=== PATIENT | female | born 1950 | race Caucasian/White ===

== ENCOUNTER 2020-04-26 07:01 | Outpatient (REF) | payer BC, SELFPAY | END 2020-04-26 07:02 | disposition home or self-care (01) | LOC: HO.WFDLDS 07:01 | PROVIDERS: PCP Internal Medicine; Visit Provider Internal Medicine | DX: Z20.828 Contact with and (suspected) exposure to other viral communicable diseases (principal) | CPT/HCPCS: C9803; U0003 ==

== ENCOUNTER 2021-02-26 08:18 | Outpatient (REF) | payer BC, SELFPAY ==
[2021-02-26 11:28] LABS: Alanine Aminotransferase 20 U/L (0-31); Albumin Level 4.2 g/dL (3.5-5.0); Alkaline Phosphatase 97 U/L (39-117); Anion Gap 12 (12-20); Aspartate Amino Transferase 22 U/L (5-31); Bilirubin Total 0.9 mg/dL (0.0-1.0); Blood Urea Nitrogen 19 mg/dL (9-16); Carbon Dioxide 28 mmol/L (22-29); Chloride 105 mmol/L (96-108); Estimated Glomerular Filt Rate > 60; Glucose Fasting 89 mg/dL (60-99); Potassium 4.3 mmol/L (3.3-5.1); Sodium 141 mmol/L (135-145); Total Protein 6.9 g/dL (6.5-8.0)
[2021-02-26 11:31] LABS: Estimated Average Glucose 103 mg/dL; Hemoglobin A1c % 5.2 %
== END 2021-02-26 08:19 | disposition home or self-care (01) ==
LOC: HO.MANLDS 08:18
PROVIDERS: PCP Internal Medicine; Visit Provider Internal Medicine
DX: R73.01 Impaired fasting glucose (principal)
CPT/HCPCS: 36415; 80053; 83036

== ENCOUNTER 2022-02-27 08:23 | Outpatient (REF) | payer BC, SELFPAY ==
[2022-02-27 11:29] LABS: MANUAL DIFF FLAG NO
[2022-02-27 11:39] LABS: Basophils Percent Auto 0.4 % (0-2); Eosinophils Absolute Auto 0.1 X10*3/uL (0.0-0.4); Eosinophils Percent Auto 1.1 % (0-4); Hematocrit 36.3 % (37.0-47.0); Hemoglobin 11.8 g/dl (12.0-16.0); Imm Gran Abs Auto 0.03 X10*3/uL (0.00-0.03); Imm Gran Pct Auto 0.4 % (0.0-0.4); Lymphocytes Percent Auto 28.5 % (20-40); Mean Corpuscular HGB Conc 32.5 g/dl (31.0-35.0); Mean Corpuscular Hemoglobin 32.3 pg (27.0-33.0); Mean Corpuscular Volume 99.5 fL (80.0-98.0); Mean Platelet Volume 9.5 fL (9.4-12.3); Monocytes Absolute Auto 0.7 X10*3/uL (0.1-1.2); Monocytes Percent Auto 9.2 % (2-11); Neutrophils Absolute Auto 4.3 x10*3/uL (2.0-8.3); Neutrophils Percent Auto 60.4 % (45-73); Platelet Count 284 X10*3/uL (160-400); Red Blood Count 3.65 X10*6/uL (4.20-5.50); Red Cell Distribution Width 12.7 % (11.0-16.0); White Blood Count 7.2 X10*3/uL (4.8-10.8)
[2022-02-27 12:32] LABS: Anion Gap 16 (12-20); Blood Urea Nitrogen 18 mg/dL (9-16); Carbon Dioxide 27 mmol/L (22-29); Chloride 102 mmol/L (96-108); Estimated Glomerular Filt Rate > 60; Potassium 4.1 mmol/L (3.3-5.1); Sodium 141 mmol/L (135-145)
[2022-02-27 12:33] LABS: Alanine Aminotransferase 19 U/L (0-31); Albumin Level 4.1 g/dL (3.5-5.0); Alkaline Phosphatase 92 U/L (39-117); Aspartate Amino Transferase 20 U/L (5-31); Bilirubin Total 0.8 mg/dL (0.0-1.0); Calcium 9.1 mg/dL (8.4-10.2); Glucose Random 90 mg/dL (60-115); Total Protein 6.8 g/dL (6.5-8.0)
== END 2022-02-27 08:24 | disposition home or self-care (01) ==
LOC: HO.MANLDS 08:23
PROVIDERS: Visit Provider Internal Medicine
DX: I10 Essential (primary) hypertension (principal)
CPT/HCPCS: 36415; 80053; 82306; 85025

== ENCOUNTER 2022-11-16 14:31 | Outpatient (REF) | payer BC, SELFPAY ==
[2022-11-16 18:01] LABS: MANUAL DIFF FLAG NO
[2022-11-16 18:38] LABS: Basophils Absolute Auto 0.1 X10*3/uL (0.0-0.2); Basophils Percent Auto 0.3 % (0-2); Eosinophils Absolute Auto 0.1 X10*3/uL (0.0-0.4); Eosinophils Percent Auto 0.6 % (0-4); Hematocrit 36.5 % (37.0-47.0); Hemoglobin 12.3 g/dl (12.0-16.0); Imm Gran Abs Auto 0.06 X10*3/uL (0.00-0.03); Imm Gran Pct Auto 0.4 % (0.0-0.4); Lymphocytes Absolute Auto 1.5 X10*3/uL (1.2-4.9); Lymphocytes Percent Auto 10.6 % (20-40); Mean Corpuscular HGB Conc 33.7 g/dl (31.0-35.0); Mean Corpuscular Hemoglobin 33.1 pg (27.0-33.0); Mean Corpuscular Volume 98.1 fL (80.0-98.0); Mean Platelet Volume 9.6 fL (9.4-12.3); Monocytes Absolute Auto 0.8 X10*3/uL (0.1-1.2); Monocytes Percent Auto 5.2 % (2-11); Neutrophils Percent Auto 82.9 % (45-73); Platelet Count 267 X10*3/uL (160-400); Red Blood Count 3.72 X10*6/uL (4.20-5.50); White Blood Count 14.4 X10*3/uL (4.8-10.8)
[2022-11-16 18:51] LABS: Alanine Aminotransferase 18 U/L (0-31); Albumin Level 3.4 g/dL (3.5-5.0); Alkaline Phosphatase 47 U/L (39-117); Anion Gap 12 (12-20); Aspartate Amino Transferase 19 U/L (5-31); Bilirubin Total 0.8 mg/dL (0.0-1.0); Blood Urea Nitrogen 8 mg/dL (9-16); C Reactive Protein 13.12 mg/dL (< or = 0.50); Calcium 8.8 mg/dL (8.4-10.2); Carbon Dioxide 30 mmol/L (22-29); Chloride 93 mmol/L (96-108); Estimated Glomerular Filt Rate > 60; Glucose Random 116 mg/dL (60-115); Lipase 26 U/L (8-78); Potassium 2.6 mmol/L (3.3-5.1); Sodium 132 mmol/L (135-145)
[2022-11-16 19:01] LABS: Amylase 51 U/L (28-100)
[2022-11-16 19:04] LABS: Erythrocyte Sedimentation Rate 20 MM/HR (0-20)
== END 2022-11-16 14:32 | disposition home or self-care (01) ==
LOC: HO.MANLDS 14:31
PROVIDERS: Visit Provider Physician Assistant
DX: A04.72 Enterocolitis due to Clostridium difficile, not specified as recurrent (principal)
CPT/HCPCS: 36415; 80053; 82150; 83690; 85025; 85652; 86140

== ENCOUNTER 2022-11-24 08:03 | Outpatient (REF) | payer BC, SELFPAY ==
[2022-11-24 14:35] LABS: Anion Gap 10 (12-20); Blood Urea Nitrogen 14 mg/dL (9-16); Calcium 9.4 mg/dL (8.4-10.2); Carbon Dioxide 33 mmol/L (22-29); Chloride 99 mmol/L (96-108); Estimated Glomerular Filt Rate > 60; Glucose Random 87 mg/dL (60-115); Potassium 3.2 mmol/L (3.3-5.1); Sodium 139 mmol/L (135-145)
== END 2022-11-24 08:04 | disposition home or self-care (01) ==
LOC: HO.MANLDS 08:03
PROVIDERS: Visit Provider Physician Assistant
DX: E87.5 Hyperkalemia (principal)
CPT/HCPCS: 36415; 80048

== ENCOUNTER → 2023-03-04 09:31 | Outpatient (REF) | payer BC, SELFPAY ==
--- NOTE | 2023-03-04 09:34 | CA_ITS ---
Transthoracic Echocardiogram Patient (Last, First, Middle): Monie Lake F Gender: Female Date of : 1950 Age: 72 Procedure Date: 03/04/2023 Procedure Type: Transthoracic Echocardiogram Location: OP Height: 162.56 cm Weight: 66.23 kg BSA: 1.71 m2 Heart Rate: 69 bpm BP: 135 / 75 mmHg Shower Attendant: ANUP Redman MD: Kev Pacheco MD Executive Team Leader: Kain Sheikh MD Symptoms: R01.1 MURMUR Study Quality: Fair ECG Rhythm: Sinus Conclusions: - 1. Normal LV systolic function with LVEF of 65-70% 2. Severe calcific aortic stenosis 3. Normal RV systolic pressure 4. Mildly dilated ascending aorta at 4 cm 5. No gross pericardial effusion Findings Left Ventricle Normal left ventricular size, thickness, and systolic function. The visually estimated ejection fraction is between 65-70%. Spectral Doppler is indicative of an impaired relaxation filling pattern. There is mild septal asymmetric hypertrophy. Right Ventricle Normal right ventricular cavity size and systolic function. Atria Both atria are normal in size. There is no evidence of interatrial shunt. Aortic Valve There is moderate calcification of the aortic valve. There is mild thickening of the aortic valve. There is severe aortic valve stenosis. The peak aortic gradient is 63 mmHg.The mean gradient is 39 mmHg. The aortic valve area is 0.79 cm2. There is no aortic valve regurgitation. Dimensionless index is 0.23, consistent with severe aortic stenosis Mitral Valve There is mild anterior and posterior mitral leaflet thickening. There is trace mitral valve regurgitation. There is no mitral valve stenosis. Pulmonic Valve The pulmonic valve was not well visualized. Tricuspid Valve Likely normal tricuspid valve structure and function. There is trace tricuspid valve regurgitation. The right ventricular systolic pressure is normal. The right ventricular systolic pressure is 14 mmHg. Normal right atrial pressure. There is no evidence of pulmonary hypertension. Great Vessels The pulmonary artery was not well visualized. There is mild dilatation of the ascending aorta. Venous The inferior vena cava is normal in size and collapses greater than 50% with inspiration. Pericardium/Pleural There is no evidence of pericardial effusion. Prior Study Comparison No prior study available for comparison. Measurements 2D Linear Measurements IVSd: 1.40 0.6-0.9/0.6-1.0 cm LVIDd: 3.90 3.9-5.3/4.2-5.9 cm LVIDd Index: 2.28 2.4-3.2/2.2-3.1 cm/m2 LVIDs: 2.20 2.0-3.6 cm LVPWd: 1.00 0.7-1.1 cm LA Diam: 3.50 2.7-3.8/3.0-4.0 cm LAIDs Index: 2.05 1.5-2.3 cm/m2 LV Mass: 198.36 67-162/88-224 g LV Mass Index: 116.00 43-95/49-115 g/m2 LVOT Diam: 2.10 3.0+(-)1.3 cm 2D Systolic Function EF 4C: 60.40 >55% EF 2C: 80.60 >55% EF BiP: 72.70 >55% Mitral Valve MV Pk E: 0.91 MV PK A: 0.75 MV Decel Time: 184.00 E/A: 1.20 E'Lateral: 9.68 E'Medial: 9.14 E/E' Med: 9.90 E/E' Lat: 9.40 PHT: 54.00 MVA PHT: 4.07 Decel [place]: 4.94 Aortic Valve AoV Pk Demetrio: 3.96 AoV Mn Demetrio: 2.99 AoV VTI: 1.09 AoV Pk Grad: 63.00 Aov Mn Grad: 39.00 VIKKI Cont.VTI: 0.79 LVOT LVOT Pk Demetrio: 0.72 LVOT Mn Demetrio: 0.61 LVOT VTI: 0.25 LVOT Pk Grad: 2.00 LVOT Mn Grad: 2.00 LVOT Diam: 2.10 LVOT Area: 3.46 Diastolic Function MV Pk E: 0.91 MV Pk A: 0.75 E/A: 1.20 E'Medial: 9.14 E/E' Med: 9.90 E' Laterial: 9.68 E/E' Lat: 9.40 Right Ventricle TAPSE (mm): 21.20 TVS' Demetrio: 10.00 Tricuspid Valve TR Pk Demetrio: 1.65 TR Pk Grad: 11.00 RA Press: 3.00 RVSP: 14.00 Great Vessels Aorta Sinus of Valsalva: 3.50 2.0-3.5 cm Ao Asc: 4.00 2.1-3.4 cm Pulmonary Valve PV Pk Demetrio: 1.05 Peak PV Grad: 4.00 Updated in Other Vendor System with Status of Final Kain Sheikh MD electronically signed on 03/05/2023 8:02:27 AM with status of Final
== END ==
LOC: HO.CARD 09:31
PROVIDERS: PCP Internal Medicine; Visit Provider Internal Medicine
DX: R01.1 Cardiac murmur, unspecified (principal)
CPT/HCPCS: 93306

== ENCOUNTER → 2023-03-04 09:34 | Outpatient (BNV) | payer BC, SELFPAY | PROVIDERS: PCP Internal Medicine; Visit Provider Internal Medicine Cardiovascular Disease | DX: I35.0 Nonrheumatic aortic (valve) stenosis (principal) | CPT/HCPCS: 93306 ==

== ENCOUNTER 2023-03-11 12:40 | Outpatient (AMB) | payer BC, SELFPAY ==
[2023-03-11 13:01] VITALS: BP 130/78; PULSE 82; BMI 25.7
--- NOTE | 2023-03-11 13:01 | MHC.OFFVIS ---
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 boulardii)) 250 mg PO BID HPI HPI Comments History of Present Illness Details Thank you for referring Monie in cardiology consultation today for recently noted aortic stenosis which appears to be severe aortic stenosis by echocardiographic criteria. Patient is a 72-year-old female with prior history of hyper tension which is been well controlled over many years. She also has family history of aortic valve replacement in her father. Patient in around July time had developed infectious symptoms with diarrhea and subsequently was suspected to have E coli and was treated for the same although there was no bacterial diagnosis made as per at that time. She subsequently developed 3 bouts of C difficile enteritis which was then eventually treated with oral vancomycin. Patient during the workup and undergoing CT scan was noted to have calcified aortic valve and subsequently on clinical exam by ID physician noted to have systolic murmur. She says she has had murmur for a long time however this led to an echocardiogram which shows severe aortic valve stenosis with underlying leaflet morphology difficult to diagnose with mean gradient of 39 mm Hg valve area of 0.79 centimeters sq and a dimensionless index of 0.23. Patient got very anxious after mentioning about aortic stenosis and says she was having some chest tightness associated with. She says whenever she gets stressed or anxious she gets retrosternal chest tightness. She has no prior history of coronary artery disease. She denies any exertional chest pain or shortness of breath and denies any reduction overall exercise capacity since last year. Denies any lightheadedness, syncope. No heart failure symptoms. No prolonged irregular heartbeat or palpitations. [facility] Medical History HTN (hypertension) Aortic stenosis Surgical History Hx of hysterectomy Family History Father Mitral valve disease Mother HTN (hypertension) Social History Patient Tobacco Use Status: Never used Tobacco Review of Systems Const Denies chills, Denies daytime sleepiness, Denies fatigue, Denies fever(s), Denies frequent falls, Denies poor appetite, Denies snoring, Denies stops breathing during sleep, Denies weakness, Denies weight gain and Denies weight loss Eyes Denies loss of vision ENT Denies dizziness and Denies hearing loss Card Denies chest pain, Denies claudication, Denies leg edema, Denies lightheadedness, Denies palpitations, Denies dyspnea, Denies dyspnea on exertion and Denies orthopnea Resp Denies cough, Denies excessive phlegm production, Denies dyspnea, Denies dyspnea on exertion, Denies snoring and Denies wheezing GI Denies abdominal pain, Denies hematochezia, Denies change in bowel habits, Denies nausea and Denies vomiting Denies urinary frequency and Denies dysuria Musc Denies arthralgias, Denies muscle weakness, Denies numbness and Denies other (frequent falls) Skin/Breast Denies nail changes and Denies rash Neuro Denies Abnormal speech present, Denies dizziness, Denies frequent falls, Denies loss of vision, Denies memory loss, Denies numbness and Denies weakness Psych Denies depression and Denies memory loss Endo Denies fatigue and Denies palpitations Darien/Lymph Reports easy bruising and Reports other (anemia) Aller/Immun Denies wheezing Physical Exam Vital Signs: Last Vital Signs Pulse 82 03/11/23 13:01 BP 130/78 03/11/23 13:01 BMI result Body Mass Index 25.7 Const General: cooperative, comfortable, no acute distress, well developed, alert, awake, Physically active, anxious and well groomed Nutritional Appearance: average body habitus Orientation/consciousness: patient oriented x3 Limitations: no limitations HEENT Head: Yes normocephalic and Yes atraumatic Neck Neck: Yes trachea midline, Yes supple and Yes no JVD Resp Effort & Inspection: normal respiratory effort Auscultation: clear to auscultation bilaterally Cardio Jugular venous distension: no JVD Palpation: normal PMI Rate: regular rate Rhythm: regular rhythm Heart sounds: S1 normal heart sound present, no click, no gallops, Murmur heart sound present systolic late, decrescendo and crescendo and Other heart sounds present (Preserved S2) Peripheral pulses: Peripheral pulses 2+ throughout GI Auscultation: normal bowel sounds Skin General skin exam: no rashes or lesions noted Neuro General: patient oriented x3 and no focal motor deficits Speech: No Abnormal speech present Extrem General: Yes no clubbing, cyanosis or edema Psych Appearance: grossly normal Office Procedures EKG Details: EKG shows normal sinus rhythm with isolated PVC with nonspecific ST changes [id number], Complete Assessment & Plan Assessment & Plan (1) Aortic stenosis: Comment: Possibly bicuspid aortic valve Code(s): I35.0 - Nonrheumatic aortic (valve) stenosis Plan: A severe aortic stenosis in this 72-year-old woman most likely due to bicuspid aortic valve, although morphology is unclear on the transthoracic echocardiogram. Family history of aortic valve replacement bicuspid aortic valve in her father. Currently blood pressure is well optimized. She has no exertional symptoms although she has stress-induced chest tightness. This could be concerning for underlying coronary artery disease and/or symptomatic valve stenosis. Although she says she is able to do yd work without any limiting symptoms. We discussed about pathophysiology of aortic stenosis as well as associated cardiovascular abnormality associated with and also discussed about cardinal symptoms associated with aortic stenosis. We advised to call with any new symptoms. Although given that she has good functional capacity will suggest a treadmill stress test to assess for hemodynamic response with underlying aortic stenosis. If she has any abnormality or reduced exercise capacity she will need to be referred for aortic valve replacement. We then discussed about aortic valve replacement including surgical aortic valve replacement and/or transcatheter aortic valve replacement and evaluation with the valve team. Currently a blood pressure is well optimized advised to continue current therapy. Recommend low-dose aspirin therapy for neuro protection. Also suggest statin therapy to target goal LDL less than 100 mg/dL. Will follow up in the clinic in 3 months time, sooner p.r.n.. Thank you for allowing me to partake in the care Orders: Orders CA stress test Today I35.0 - Nonrheumatic aortic (valve) stenosis Medications: New aspirin (Ecotrin Low Strength) 81 mg PO DAILY 30 tabs 5RF I35.0 - Nonrheumatic aortic (valve) stenosis rosuvastatin (Crestor) 20 mg PO DAILY 30 tabs 5RF I35.0 - Nonrheumatic aortic (valve) stenosis Coding Level of Care Code New Pt Level 4 (67767) Diagnoses Aortic stenosis I35.0 CPT Codes EKG - CPT: 96757-[id number], Complete ([id number])
== END 2023-03-11 13:45 | disposition home or self-care (01) ==
PROVIDERS: PCP Internal Medicine; Visit Provider Internal Medicine Cardiovascular Disease
DX: I35.0 Nonrheumatic aortic (valve) stenosis (principal)
CPT/HCPCS: 93010; 99204

== ENCOUNTER → 2023-03-11 12:40 | Outpatient (BNVA) | payer BC, SELFPAY | PROVIDERS: PCP Internal Medicine; Visit Provider Internal Medicine Cardiovascular Disease | DX: I35.0 Nonrheumatic aortic (valve) stenosis (principal); I10 Essential (primary) hypertension | CPT/HCPCS: 93005 ==

== ENCOUNTER → 2023-03-16 07:37 | Outpatient (REF) | payer BC, SELFPAY ==
--- NOTE | 2023-03-16 07:45 | CA_ITS ---
Acquisition Time: 2023-03-16 08:05:56 Total Exercise Time: 00:05:00 Test Indications: AORTIC STENOSIS Medications: LISINOPRIL/HCTZ Protocol: AZAM Max HR: 139 BPM 92% of Pred: 150 BPM Max BP: 138/078 mmHG Max Work Load: 7.0 METS Exercise stress test exercise 5 min of Azam protocol achieving 92% MPHR, without anginal symptoms, without lightheadedness, with isolated PVC, with drop in SHAINA from 138/78 to 108/70, with out EKG changes.Test reviewed with Dr. Sheikh Referred By: Kain Sheikh Overread By: Raegan White
== END ==
LOC: HO.CARD 07:37
PROVIDERS: PCP Internal Medicine; Visit Provider Internal Medicine Cardiovascular Disease
DX: I35.0 Nonrheumatic aortic (valve) stenosis (principal)
CPT/HCPCS: 93017

== ENCOUNTER → 2023-03-16 07:45 | Outpatient (BNV) | payer BC, SELFPAY | PROVIDERS: PCP Internal Medicine; Visit Provider Nurse Practitioner | DX: I35.0 Nonrheumatic aortic (valve) stenosis (principal) | CPT/HCPCS: 93016; 93018 ==

== ENCOUNTER 2023-03-24 07:34 | Outpatient (REF) | payer BC, SELFPAY ==
[2023-03-24 13:16] LABS: MANUAL DIFF FLAG NO
[2023-03-24 13:36] LABS: Basophils Absolute Auto 0.1 X10*3/uL (0.0-0.2); Basophils Percent Auto 0.8 % (0-2); Eosinophils Absolute Auto 0.1 X10*3/uL (0.0-0.4); Eosinophils Percent Auto 1.9 % (0-4); Hematocrit 39.1 % (37.0-47.0); Hemoglobin 12.7 g/dl (12.0-16.0); Imm Gran Abs Auto 0.01 X10*3/uL (0.00-0.03); Imm Gran Pct Auto 0.2 % (0.0-0.4); Lymphocytes Absolute Auto 2.3 X10*3/uL (1.2-4.9); Lymphocytes Percent Auto 38.4 % (20-40); Mean Corpuscular HGB Conc 32.5 g/dl (31.0-35.0); Mean Corpuscular Hemoglobin 33.3 pg (27.0-33.0); Mean Corpuscular Volume 102.6 fL (80.0-98.0); Mean Platelet Volume 9.6 fL (9.4-12.3); Monocytes Absolute Auto 0.5 X10*3/uL (0.1-1.2); Monocytes Percent Auto 8.1 % (2-11); Neutrophils Percent Auto 50.6 % (45-73); Platelet Count 208 X10*3/uL (160-400); Red Blood Count 3.81 X10*6/uL (4.20-5.50); Red Cell Distribution Width 11.9 % (11.0-16.0); White Blood Count 5.9 X10*3/uL (4.8-10.8)
[2023-03-24 13:37] LABS: Estimated Average Glucose 105 mg/dL; Hemoglobin A1c % 5.3 % (<6.0)
[2023-03-24 14:03] LABS: Alanine Aminotransferase 10 U/L (0-31); Albumin Level 4.1 g/dL (3.5-5.0); Alkaline Phosphatase 85 U/L (39-117); Anion Gap 13 (12-20); Aspartate Amino Transferase 19 U/L (5-31); Bilirubin Total 0.8 mg/dL (0.0-1.0); Blood Urea Nitrogen 16 mg/dL (9-16); Calcium 9.3 mg/dL (8.4-10.2); Carbon Dioxide 30 mmol/L (22-29); Chloride 103 mmol/L (96-108); Estimated Glomerular Filt Rate > 60; Glucose Random 89 mg/dL (60-115); Potassium 3.7 mmol/L (3.3-5.1); Sodium 142 mmol/L (135-145)
[2023-03-24 14:29] LABS: Vitamin D 25-OH Total 84.4 ng/mL (>30)
== END 2023-03-24 07:35 | disposition home or self-care (01) ==
LOC: HO.MANLDS 07:34
PROVIDERS: Visit Provider Internal Medicine
DX: I10 Essential (primary) hypertension (principal); R73.01 Impaired fasting glucose
CPT/HCPCS: 36415; 80053; 82306; 83036; 85025

== ENCOUNTER 2023-03-29 13:37 | Outpatient (REF) | payer BC, SELFPAY ==
[2023-03-29 15:27] LABS: INTERNATIONAL NORM RATIO 0.9 (0.9-1.1); Prothrombin Time 10.8 SEC (11.1-13.3)
[2023-03-29 15:30] LABS: Hematocrit 37.7 % (37.0-47.0); Hemoglobin 12.6 g/dl (12.0-16.0); Mean Corpuscular HGB Conc 33.4 g/dl (31.0-35.0); Mean Corpuscular Volume 98.7 fL (80.0-98.0); Mean Platelet Volume 9.1 fL (9.4-12.3); Platelet Count 201 X10*3/uL (160-400); Red Blood Count 3.82 X10*6/uL (4.20-5.50); Red Cell Distribution Width 11.5 % (11.0-16.0); White Blood Count 6.1 X10*3/uL (4.8-10.8)
[2023-03-29 15:54] LABS: Anion Gap 10 (12-20); Blood Urea Nitrogen 12 mg/dL (9-16); Calcium 9.4 mg/dL (8.4-10.2); Carbon Dioxide 32 mmol/L (22-29); Chloride 101 mmol/L (96-108); Estimated Glomerular Filt Rate 57; Glucose Random 127 mg/dL (60-115); Potassium 3.5 mmol/L (3.3-5.1); Sodium 139 mmol/L (135-145)
== END 2023-03-29 13:38 | disposition home or self-care (01) ==
LOC: HO.LAB 13:37
PROVIDERS: PCP Internal Medicine; Visit Provider Internal Medicine Cardiovascular Disease
DX: I35.0 Nonrheumatic aortic (valve) stenosis (principal); I10 Essential (primary) hypertension; Z79.899 Other long term (current) drug therapy
CPT/HCPCS: 36415; 80048; 85027; 85610

== ENCOUNTER 2023-03-29 13:37 | Outpatient (AMB) | payer BC, SELFPAY ==
--- NOTE | 2023-03-29 13:57 | A.OFFVIS_ITS ---
Intake Vital Signs 03/29/23 14:00 Height 5 ft 4 in Weight 145 lb 8.081 oz BMI 25.0 BP 120/80 Blood Pressure Location Lt brachial Position Sitting Pulse 86 Intake Visit Reasons: fu re TAVR- Intake Note: New patient regarding TAVR Binder Layer Required: No Tube Closing Machine Operator: Tube Closing Machine Operator Present Accompanied by: Spouse Allergies penicillin G Allergy (Mild, Verified 03/11/23 13:08) rash Medication List - Last Reconciled 03/29/23 by Wade Carlin MD aspirin (Ecotrin Low Strength) 81 mg PO DAILY lisinopril-hydrochlorothiazide 20-25 mg 1 tab PO DAILY psyllium husk (Metamucil) 0.4 grams PO QHS rosuvastatin (Crestor) 20 mg PO DAILY Saccharomyces boulardii (Daily Probiotic (S. boulardii)) 250 mg PO BID HPI HPI Comments History of Present Illness Details Very pleasant 72-year-old female who is here for severe aortic valve st enosis. She said she had infection for which she received antibiotics and developed Clostridium difficile. Subsequent to that she has side infectious disease airway murmur was heard and echocardiography was performed. Echocardiography showed severe aortic valve stenosis. Discussing with the patient she had no significant symptoms in particular no chest discomfort, shortness of breath or syncope previously. She has been quite active and exercises and walks regularly without any exertional issues. She was referred for exercise stress tests where she was able to exercise without any symptom but interestingly her blood pressure dropped with exercise. Again during exercise she denied any symptoms. She has been referred to us for further assessment and discussion about transcatheter aortic valve replacement. She has no bleeding issues in the past. She has allergy to penicillin which causes rash. No previous cancer in herself. Her brother had prostate cancer which is only history in her family at this point. She has hypertension and hyperlipidemia and has been taking lisinopril hydrochlorothiazide combination along with rosuvastatin. [facility] Medical History HTN (hypertension) Aortic stenosis Surgical History Hx of hysterectomy Family History Father Mitral valve disease Mother HTN (hypertension) Social History Patient Tobacco Use Status: Never used Tobacco Review of Systems Const Denies chills, Denies daytime sleepiness, Denies fatigue, Denies fever(s), Denies frequent falls, Denies poor appetite, Denies snoring, Denies stops breathing during sleep, Denies weakness, Denies weight gain and Denies weight loss Eyes Denies loss of vision ENT Denies dizziness and Denies hearing loss Card Denies chest pain, Denies claudication, Denies leg edema, Denies l ightheadedness, Denies palpitations, Denies dyspnea, Denies dyspnea on exertion and Denies orthopnea Resp Denies cough, Denies excessive phlegm production, Denies dyspnea, Denies dyspnea on exertion, Denies snoring and Denies wheezing GI Denies abdominal pain, Denies hematochezia, Denies change in bowel habits, Denies nausea and Denies vomiting Denies urinary frequency and Denies dysuria Musc Denies arthralgias, Denies muscle weakness, Denies numbness and Denies other (frequent falls) Skin/Breast Denies nail changes and Denies rash Neuro Denies Abnormal speech present, Denies dizziness, Denies frequent falls, Denies loss of vision, Denies memory loss, Denies numbness and Denies weakness Psych Denies depression and Denies memory loss Endo Denies fatigue and Denies palpitations Darien/Lymph Reports easy bruising and Reports other (anemia) Aller/Immun Denies wheezing Physical Exam Vital Signs: Last Vital Signs Pulse 86 03/29/23 14:00 BP 120/80 03/29/23 14:00 BMI result Body Mass Index 25.0 GENERAL APPEARANCE: in no acute distress, pleasant. NECK: no carotid bruit, no jugular venous distention. SKIN: no suspicious lesions, warm and dry. HEART: Ejection systolic murmur with no 2nd heart sound, regular rate and rhythm. LUNGS: clear to auscultation bilaterally. ABDOMEN: soft, nontender. EXTREMITIES: no edema. PERIPHERAL PULSES: equal. NEUROLOGIC: No gross deficits, AAO X 3 Neuro Speech: No Abnormal speech present Assessment & Plan Assessment & Plan (1) HTN (hypertension): Code(s): I10 - Essential (primary) hypertension (2) Aortic stenosis: Comment: Possibly bicuspid aortic valve Code(s): I35.0 - Nonrheumatic aortic (valve) stenosis Plan 72-year-old female who is here for severe aortic valve stenosis. She does not have any symptoms but during exercise stress test she had drop in her blood pressure. Again she was asymptomatic during the stress test. Given the fact that she has severe aortic valve stenosis and hypertension while exercising on treadmill, the likely cause for this hemodynamic changes severe aortic valve stenosis. We had a detailed discussion about this. I have explained to her that aortic stenosis is a mechanical issue with the valve and the valve has to be replaced either surgically or with transcatheter techniques. She is more interested obviously in transcatheter aortic valve replacement. I explained to her that we have to gather some more information including presence of coronary disease 1st. We will arrange a diagnostic left and right heart catheterization for her. Post catheterization I will arrange a CT TAVR protocol and refer her for intervention cardiology assessment. She will also see cardiothoracic surgery for surgical risk assessment. I have discussed with her in detail about the pros and cons of TAVR procedure. She will have further discussions with Interventional Cardiology as well as cardiothoracic surgeon at [facility]. Follow-up with us after the cardiac catheterization. Thank you for allowing me to participate in the care of your patient. Please feel free to contact me if you have any questions. Orders: Orders Basic Metabolic Panel Today I35.0 - Nonrheumatic aortic (valve) stenosis Cardiac Cath ELIJAH Diagnostic Today I35.0 - Nonrheumatic aortic (valve) stenosis Complete Blood Count no Diff Today I35.0 - Nonrheumatic aortic (valve) stenosis Prothrombin Time INR Today I35.0 - Nonrheumatic aortic (valve) stenosis Lipid Panel Today I35.0 - Nonrheumatic aortic (valve) stenosis Coding Level of Care Code Est Pt Level 5 (97839) Diagnoses HTN (hypertension) I10 Aortic stenosis I35.0
[2023-03-29 14:00] VITALS: BP 120/80; PULSE 86; BMI 25.0
== END 2023-03-29 14:45 | disposition home or self-care (01) ==
PROVIDERS: PCP Internal Medicine; Visit Provider Internal Medicine Cardiovascular Disease
DX: I35.0 Nonrheumatic aortic (valve) stenosis (principal); I10 Essential (primary) hypertension
CPT/HCPCS: 99215

== ENCOUNTER → 2023-04-13 23:59 | Outpatient (BNV) | payer BC, SELFPAY | PROVIDERS: PCP Internal Medicine; Visit Provider Internal Medicine Cardiovascular Disease | DX: I35.0 Nonrheumatic aortic (valve) stenosis (principal) | CPT/HCPCS: 93460; 99152 ==

== ENCOUNTER 2023-04-26 07:58 | Outpatient (REF) | payer BC, SELFPAY ==
[2023-04-26 12:10] LABS: Cholesterol 150 mg/dL (<200); HDL Cholesterol 77 mg/dL (>40); LDL Cholesterol Calculated 63 mg/dL (<100); Triglycerides 54 mg/dL (<150)
== END 2023-04-26 07:59 | disposition home or self-care (01) ==
LOC: HO.WFDLDS 07:58
PROVIDERS: Visit Provider Internal Medicine Cardiovascular Disease
DX: I35.0 Nonrheumatic aortic (valve) stenosis (principal)
CPT/HCPCS: 36415; 80061

== ENCOUNTER 2023-06-23 10:41 | Outpatient (AMB) | payer BC, SELFPAY ==
--- NOTE | 2023-06-23 10:45 | MHC.OFFVIS ---
Intake Vital Signs 06/23/23 10:50 Height 5 ft 4 in Weight 149 lb 14.629 oz BMI 25.7 BP 122/70 Blood Pressure Location Lt brachial Position Sitting Pulse 78 Intake Visit Reasons: 3 mth fu after stress/ lavs Intake Note: 3 month follow-up after stress test feeling ok Vp Product Marketing Required: No Associate Professor Of Education: Associate Professor Of Education Present Accompanied by: Spouse Allergies penicillin G Allergy (Mild, Verified 03/11/23 13:08) rash Medication List - Last Reconciled 06/23/23 by Kain Sheikh MD aspirin (Ecotrin Low Strength) 81 mg PO DAILY coenzyme Q10 (CoQ-10) 100 mg PO DAILY lisinopril-hydrochlorothiazide 20-25 mg 1 tab PO DAILY psyllium husk (Metamucil) 0.4 grams PO QHS rosuvastatin (Crestor) 20 mg PO DAILY Saccharomyces boulardii (Daily Probiotic (S. boulardii)) 250 mg PO BID HPI HPI Comments History of Present Illness Details Monie comes for follow-up. She has been seen by the heart valve team and due to the anatomy of her severe aortic stenosis related to bicuspid aortic valve she has not considered to be a good candidate for transcatheter aortic valve replacement with higher complication rate. She is therefore seen by Dr. King who was planning to perform surgical aortic valve replacement in the near future. Patient does not have any significant coronary artery disease. No new symptoms to report. She takes all her medications regularly. Denies any new chest pain, lightheadedness, syncope, shortness of breath. PFSH Medical History HTN (hypertension) Aortic stenosis Surgical History Hx of hysterectomy Family History Father Mitral valve disease Mother HTN (hypertension) Social History Patient Tobacco Use Status: Never used Tobacco Review of Systems Const Denies chills, Denies daytime sleepiness, Denies fatigue, Denies fever(s), Denies frequent falls, Denies poor appetite, Denies snoring, Denies stops breathing during sleep, Denies weakness, Denies weight gain and Denies weight loss Eyes Denies loss of vision ENT Denies dizziness and Denies hearing loss Card Denies chest pain, Denies claudication, Denies leg edema, Denies lightheadedness, Denies palpitations, Denies dyspnea, Denies dyspnea on exertion and Denies orthopnea Resp Denies cough, Denies excessive phlegm production, Denies dyspnea, Denies dyspnea on exertion, Denies snoring and Denies wheezing GI Denies abdominal pain, Denies hematochezia, Denies change in bowel habits, Denies nausea and Denies vomiting Denies urinary frequency and Denies dysuria Musc Denies arthralgias, Denies muscle weakness, Denies numbness and Denies other (frequent falls) Skin/Breast Denies nail changes and Denies rash Neuro Denies Abnormal speech present, Denies dizziness, Denies frequent falls, Denies loss of vision, Denies memory loss, Denies numbness and Denies weakness Psych Denies depression and Denies memory loss Endo Denies fatigue and Denies palpitations Darien/Lymph Reports easy bruising and Reports other (anemia) Aller/Immun Denies wheezing Physical Exam Vital Signs: Last Vital Signs Pulse 78 06/23/23 10:50 BP 122/70 06/23/23 10:50 BMI result Body Mass Index 25.7 Neuro Speech: No Abnormal speech present Assessment & Plan Assessment & Plan (1) Aortic stenosis: Comment: Possibly bicuspid aortic valve Code(s): I35.0 - Nonrheumatic aortic (valve) stenosis Plan: Critical aortic stenosis with hemodynamically abnormal exercise response with patient who remains asymptomatic but with reduced exercise capacity on treadmill stress test. No significant coronary artery disease. The valve is bicuspid with anatomy not suitable for transcatheter aortic valve replacement. She is planned to undergo surgical aortic valve replacement. I had a detailed discussion about the process and recovery time with surgical aortic valve replacement. She is naturally somewhat nervous but is understanding the need for the procedure. Will schedule her for follow-up after aortic valve replacement in 4-6 weeks time after an echocardiogram. Continue aggressive risk factor modification including continue current aspirin therapy as well as statin therapy and current antihypertensive therapy. Will benefit from post surgical cardiac rehabilitation. Follow up in the clinic in 2 months time, sooner p.r.n.. Thank you for allowing me to partake in her care Coding Level of Care Code Est Pt Level 4 (80259) Diagnoses Aortic stenosis I35.0
[2023-06-23 10:50] VITALS: BP 122/70; PULSE 78; BMI 25.7
== END 2023-06-23 11:20 | disposition home or self-care (01) ==
PROVIDERS: PCP Internal Medicine; Referring Provider Internal Medicine; Visit Provider Internal Medicine Cardiovascular Disease
DX: I35.0 Nonrheumatic aortic (valve) stenosis (principal)
CPT/HCPCS: 99214

== ENCOUNTER → 2023-06-23 10:41 | Outpatient (BNVA) | payer BC, SELFPAY | PROVIDERS: PCP Internal Medicine; Visit Provider Internal Medicine Cardiovascular Disease ==

== ENCOUNTER 2023-09-15 13:48 | Outpatient (REF) | payer BC, SELFPAY ==
[2023-09-15 18:01] LABS: MANUAL DIFF FLAG NO
[2023-09-15 18:14] LABS: Basophils Percent Auto 0.6 % (0-2); Eosinophils Absolute Auto 0.2 X10*3/uL (0.0-0.4); Eosinophils Percent Auto 2.5 % (0-4); Hematocrit 32.9 % (37.0-47.0); Hemoglobin 10.6 g/dl (12.0-16.0); Imm Gran Abs Auto 0.03 X10*3/uL (0.00-0.03); Imm Gran Pct Auto 0.4 % (0.0-0.4); Immature Retic Fraction 28.6 % (3.0-15.9); Lymphocytes Absolute Auto 1.4 X10*3/uL (1.2-4.9); Mean Corpuscular HGB Conc 32.2 g/dl (31.0-35.0); Mean Corpuscular Hemoglobin 31.9 pg (27.0-33.0); Mean Corpuscular Volume 99.1 fL (80.0-98.0); Mean Platelet Volume 10.1 fL (9.4-12.3); Monocytes Absolute Auto 0.5 X10*3/uL (0.1-1.2); Monocytes Percent Auto 7.8 % (2-11); Neutrophils Absolute Auto 4.7 x10*3/uL (2.0-8.3); Neutrophils Percent Auto 68.7 % (45-73); Platelet Count 246 X10*3/uL (160-400); Red Blood Count 3.32 X10*6/uL (4.20-5.50); Red Cell Distribution Width 16.3 % (11.0-16.0); Reticulocyte Percent 3.5 % (0.5-1.8); Reticulocytes Absolute 0.116 X10*6/uL (0.026-0.095); White Blood Count 6.8 X10*3/uL (4.8-10.8)
[2023-09-15 18:25] LABS: Anion Gap 14 (12-20); Blood Urea Nitrogen 21 mg/dL (9-16); Calcium 8.7 mg/dL (8.4-10.2); Carbon Dioxide 27 mmol/L (22-29); Chloride 105 mmol/L (96-108); Estimated Glomerular Filt Rate > 60; Glucose Random 110 mg/dL (60-115); Iron 44 mcg/dL (30-160); Percent Iron Saturation 20 % (15-50); Sodium 143 mmol/L (135-145); Total Iron Binding Capacity 216 mcg/dL (228-428); Unsaturated Iron Binding 172 ug/dL
[2023-09-15 18:41] LABS: Ferritin 205 ng/mL (10-250)
[2023-09-15 18:56] LABS: Folate 8.8 ng/mL (> or = 4.0); Vitamin B12 475 pg/mL (200-900)
== END 2023-09-15 13:49 | disposition home or self-care (01) ==
LOC: HO.MANLDS 13:48
PROVIDERS: Visit Provider Internal Medicine
DX: I35.0 Nonrheumatic aortic (valve) stenosis (principal)
CPT/HCPCS: 36415; 80048; 82607; 82728; 82746; 83540; 85025; 85045

== ENCOUNTER → 2023-10-01 09:33 | Outpatient (REF) | payer BC, SELFPAY ==
--- NOTE | 2023-10-01 09:40 | CA_ITS ---
Transthoracic Echocardiogram Patient (Last, First, Middle): Monie Lake F Gender: Female Date of : 1950 Age: 73 Procedure Date: 10/01/2023 Procedure Type: Transthoracic Echocardiogram Location: OP Height: 162.56 cm Weight: 67.13 kg BSA: 1.72 m2 Heart Rate: bpm BP: 156 / 80 mmHg Core Stacker: TO Referring MD: Kain Sheikh MD Symptoms: Z95.2 - Presence of prosthetic heart valve Study Quality: Fair/Contrast Conclusions: - The left ventricular systolic function is normal. The calculated ejection fraction is 60% by biplane method. - A bioprosthetic aortic valve is present. The prosthetic aortic valve appears to be functioning normally. - There is moderate mitral annular calcification. Findings Procedure Information Contrast agent, definity, is being given per protocol without apparent complications. Left Ventricle Normal left ventricular cavity size. The left ventricular systolic function is normal. The calculated ejection fraction is 60% by biplane method. There is no evidence of regional wall motion abnormalities. Evidence suggests grade II (moderate) diastolic dysfunction. There is mild septal asymmetric hypertrophy. Right Ventricle Normal right ventricular cavity size. There is mildly decreased right ventricular systolic function. Atria Both atria are normal in size. Aortic Valve A bioprosthetic aortic valve is present. The prosthetic aortic valve appears to be functioning normally. The mean gradient is 13 mmHg. There is no aortic valve regurgitation. Mitral Valve There is moderate mitral annular calcification. There is trace mitral valve regurgitation. There is no mitral valve stenosis. Pulmonic Valve The pulmonic valve is likely normal. Tricuspid Valve There is trace tricuspid valve regurgitation. There is no evidence of pulmonary hypertension. Great Vessels The asc aorta is normal in size. Venous The inferior vena cava is normal in size and collapses greater than 50% with inspiration. Pericardium/Pleural There is no evidence of pericardial effusion. Prior Study Comparison Changes noted compared to prior study dated: 03/04/2023. s/p AVR. Measurements 2D Linear Measurements IVSd: 1.16 0.6-0.9/0.6-1.0 cm LVIDd: 4.62 3.9-5.3/4.2-5.9 cm LVIDd Index: 2.69 2.4-3.2/2.2-3.1 cm/m2 LVIDs: 3.13 2.0-3.6 cm LVPWd: 0.82 0.7-1.1 cm LA Diam: 3.70 2.7-3.8/3.0-4.0 cm LAIDs Index: 2.15 1.5-2.3 cm/m2 LV Mass: 196.03 67-162/88-224 g LV Mass Index: 113.97 43-95/49-115 g/m2 LVOT Diam: 2.00 3.0+(-)1.3 cm 2D Systolic Function EF 4C: 55.80 >55% EF 2C: 62.00 >55% EF BiP: 59.70 >55% Mitral Valve MV Pk E: 0.69 MV PK A: 0.51 MV Decel Time: 230.00 E/A: 1.30 E'Lateral: 6.74 E'Medial: 4.35 E/E' Med: 15.80 E/E' Lat: 10.20 PHT: 67.00 MVA PHT: 3.28 Decel Jewell: 2.98 Aortic Valve AoV Pk Demetrio: 2.25 AoV Mn Demetrio: 1.72 AoV VTI: 0.60 AoV Pk Grad: 20.00 Aov Mn Grad: 13.00 VIKKI Cont.VTI: 1.07 LVOT LVOT Pk Demetrio: 0.79 LVOT Mn Demetrio: 0.56 LVOT VTI: 0.20 LVOT Pk Grad: 2.00 LVOT Mn Grad: 1.00 LVOT Diam: 2.00 LVOT Area: 3.14 Diastolic Function MV Pk E: 0.69 MV Pk A: 0.51 E/A: 1.30 E'Medial: 4.35 E/E' Med: 15.80 E' Laterial: 6.74 E/E' Lat: 10.20 Right Ventricle TAPSE (mm): 15.50 TVS' Demetrio: 8.81 Tricuspid Valve TR Pk Demetrio: 2.13 TR Pk Grad: 18.00 RA Press: 3.00 RVSP: 21.00 Great Vessels Aorta Sinus of Valsalva: 3.53 2.0-3.5 cm Ao Asc: 3.50 2.1-3.4 cm Ao Arch: 2.60 Updated in Other Vendor System with Status of Final Garett Agrawal MD electronically signed on 10/05/2023 11:36:26 AM with status of Final
== END ==
LOC: HO.CARD 09:33
PROVIDERS: PCP Internal Medicine; Visit Provider Internal Medicine
DX: Z95.2 Presence of prosthetic heart valve (principal)
CPT/HCPCS: 93306; Q9957

== ENCOUNTER → 2023-10-01 09:40 | Outpatient (BNV) | payer BC, SELFPAY | PROVIDERS: PCP Internal Medicine; Visit Provider Internal Medicine | DX: I34.81 Nonrheumatic mitral (valve) annulus calcification (principal); Z95.3 Presence of xenogenic heart valve | CPT/HCPCS: 93306 ==

== ENCOUNTER 2023-10-19 11:04 | Outpatient (AMB) | payer BC, SELFPAY ==
[2023-10-19 11:21] VITALS: BP 128/80; PULSE 55; BMI 26.1
--- NOTE | 2023-10-19 11:21 | A.OFFVIS_ITS ---
Vital Signs 10/19/23 11:21 Height 5 ft 4 in Weight 152 lb 1.903 oz BMI 26.1 BP 128/80 Blood Pressure Location Lt brachial Position Sitting Pulse 55 Intake Visit Reasons: follow-up TAVR after echo Intake Note: Follow-up post TAVR and echo c/o chest in soreness Siebel Consultant Required: No Patient Registration Specialist: Patient Registration Specialist Present Accompanied by: Spouse Allergies penicillin G Allergy (Mild, Verified 03/11/23 13:08) rash Medication List - Last Reconciled 10/19/23 by Kain Sheikh MD aspirin (Ecotrin Low Strength) 81 mg PO DAILY ferrous fumarate 325 mg PO DAILY lisinopril 20 mg PO .PM lisinopril-hydrochlorothiazide 20-25 mg 1 tab PO DAILY metoprolol tartrate 50 mg PO BID potassium chloride ER 10 mEq PO DAILY psyllium husk (Metamucil) 0.4 grams PO QHS Saccharomyces boulardii (Daily Probiotic (S. boulardii)) 250 mg PO BID HPI Comments Details: Monie comes for follow-up. As you aware she underwent aortic valve replacement with a 21 mm bioprosthetic aortic valve. She continues to have discomfort in the right upper chest area since the surgery with numbness in that area. However she says the symptoms exertional fatigue and chest pressure significantly improved since the valve replacement. The surgery was complicated with fluid overload and atrial fibrillation. This is not resolved. She also had postoperatively right pleural effusion. She also had anemia, currently on iron therapy. She was also started on Lasix therapy and subsequently her lisinopril was withheld during that period and she started developing significantly elevated blood pressure. Since then her lisinopril has been re added and currently taking lisinopril hydrochlorothiazide 20/25 mg at morning hours and lisinopril 20 mg at nighttime. Since then her blood pressure has been much better controlled. Although she is notice low heart rate. She is also currently on metoprolol 50 mg b.i.d.. She denies any lightheadedness, syncope. She is currently participating in phase 2 cardiac rehabilitation. Denies any clear orthopnea, PND, leg edema. Currently also performing incentive spirometry. Recent echocardiogram shows normal LV ejection fraction of 60% with normal bioprosthetic aortic valve. [facility] Medical History HTN (hypertension) Aortic stenosis Surgical History S/P AVR Hx of hysterectomy Family History Father Mitral valve disease Mother HTN (hypertension) Social History Patient Tobacco Use Status: Never used Tobacco Review of Systems Const Denies chills, Denies fatigue, Denies fever(s), Denies frequent falls, Denies weakness, Denies weight gain and Denies weight loss ENT Denies dizziness Card Denies chest pain, Denies leg edema, Denies lightheadedness, Denies palpitations, Denies dyspnea, Denies dyspnea on exertion, Denies orthopnea and Denies other (loss of consciousness) Resp Denies cough, Denies dyspnea and Denies dyspnea on exertion GI Denies hematochezia and Denies change in stool character Musc Denies abnormal gait, Denies muscle weakness, Denies numbness, Denies radiating pain into limb and Denies tingling Neuro Denies abnormal gait, Denies dizziness, Denies frequent falls, Denies numbness, Denies tingling and Denies weakness Endo Denies fatigue and Denies palpitations Physical Exam Vital Signs: Last Vital Signs Pulse 55 10/19/23 11:21 BP 128/80 10/19/23 11:21 BMI result Body Mass Index 26.1 Const General: cooperative, comfortable, no acute distress, alert, awake and well groomed Nutritional Appearance: average body habitus Orientation/consciousness: patient oriented x3 Neck Neck: Yes trachea midline, Yes supple and Yes no JVD Chest Chest palpation & inspection: other (Well-healed sternotomy scar) Resp Effort & Inspection: normal respiratory effort Auscultation: diminished lung sounds on the right in the lower lung crystal Cardio Jugular venous distension: no JVD Rate: regular rate Rhythm: regular rhythm Heart sounds: S1 normal heart sound present, S2 normal heart sound present, no click, no gallops and no murmurs Skin General skin exam: no rashes or lesions noted Neuro General: patient oriented x3 and no focal motor deficits Extrem General: Yes no clubbing, cyanosis or edema Assessment & Plan Assessment & Plan (1) S/P AVR: Comment: 21 mm Bioprosthetic valve, mean gradient 133 mm of HG, post op Echo Code(s): Z95.2 - Presence of prosthetic heart valve Category: Surgical Plan: Status post bioprosthetic aortic valve replacement for severe aortic stenosis related to bicuspid aortic valve. Discussed with the patient about genetic possibility of inheritance in her daughter. Advised her daughter to undergo echocardiogram to evaluate for bicuspid aortic valve. For her she should continue low-dose aspirin therapy. Continue aggressive blood pressure control, see below. Would restart her on statin therapy at a low-dose. Advised to start initially on coenzyme Q10 100 mg for 2 weeks followed by rosuvastatin 5 mg daily. Follow-up lipid panel in 3 months time. Target goal LDL less than 100 mg/dL. SBE prophylaxis as per ACC/aha guidelines. She should be on clindamycin 600 mg 1 hour prior to the dental procedure. Follow-up lab work today. She has right pleural effusion most likely due to inflammatory reaction to pericardiectomy. Advised to continue phase 2 cardiac rehabilitation and incentive spirometry. (2) HTN (hypertension): Code(s): I10 - Essential (primary) hypertension Category: Medical Plan: Hypertension which appears to be better control at this point time on current regimen. Will advised to taper and discontinue metoprolol given her bradycardia. Advised to closely monitor her blood pressure. Your blood pressure tends to rebound will add amlodipine therapy to her regimen. This was discussed with her. Low-salt diet was discussed. Stress mitigation strategies were discussed. Advised to monitor blood pressure at home maintain a log and provide with the log to me in about a month's time. Follow up in the clinic in 3 months time, sooner p.r.n.. Thank you for allowing me to partake in her care Orders: Orders Complete Blood Count no Diff Today Z95.2 - Presence of prosthetic heart valve Lipid Panel 3 Months I25.10 - Atherosclerotic heart disease of [place] coronary artery without angina pectoris, Z95.2 - Presence of prosthetic heart valve Basic Metabolic Panel Today Z95.2 - Presence of prosthetic heart valve Medications: New coenzyme Q10 100 mg PO DAILY 30 caps 5RF Z95.2 - Presence of prosthetic heart valve rosuvastatin 5 mg PO DAILY 30 tabs 2RF Z95.2 - Presence of prosthetic heart valve Coding Level of Care Code Est Pt Level 4 (49844) Diagnoses S/P AVR Z95.2 HTN (hypertension) I10
== END 2023-10-19 11:53 | disposition home or self-care (01) ==
PROVIDERS: PCP Internal Medicine; Visit Provider Internal Medicine Cardiovascular Disease
DX: Z95.2 Presence of prosthetic heart valve (principal); I10 Essential (primary) hypertension
CPT/HCPCS: 99214

== ENCOUNTER 2023-10-19 11:04 | Outpatient (REF) | payer BC, SELFPAY ==
[2023-10-19 12:21] LABS: Hematocrit 38.4 % (37.0-47.0); Hemoglobin 12.2 g/dl (12.0-16.0); Mean Corpuscular HGB Conc 31.8 g/dl (31.0-35.0); Mean Corpuscular Hemoglobin 30.8 pg (27.0-33.0); Mean Platelet Volume 9.7 fL (9.4-12.3); Platelet Count 223 X10*3/uL (160-400); Red Blood Count 3.96 X10*6/uL (4.20-5.50); Red Cell Distribution Width 15.1 % (11.0-16.0); White Blood Count 7.3 X10*3/uL (4.8-10.8)
[2023-10-19 13:03] LABS: Anion Gap 11 (12-20); Blood Urea Nitrogen 13 mg/dL (9-16); Calcium 9.1 mg/dL (8.4-10.2); Carbon Dioxide 33 mmol/L (22-29); Chloride 103 mmol/L (96-108); Estimated Glomerular Filt Rate > 60; Glucose Random 93 mg/dL (60-115); Potassium 3.7 mmol/L (3.3-5.1); Sodium 143 mmol/L (135-145)
== END 2023-10-19 11:05 | disposition home or self-care (01) ==
LOC: HO.LAB 11:04
PROVIDERS: PCP Internal Medicine; Visit Provider Internal Medicine Cardiovascular Disease
DX: Z95.2 Presence of prosthetic heart valve (principal)
CPT/HCPCS: 36415; 80048; 85027

== ENCOUNTER 2023-11-08 14:15 | Outpatient (AMB) | payer BC, SELFPAY ==
[2023-11-08 14:20] VITALS: BP 146/84; PULSE 94; BMI 25.7
--- NOTE | 2023-11-08 14:20 | MHC.OFFVIS ---
Vital Signs 11/08/23 14:20 Height 5 ft 4 in Weight 149 lb 14.629 oz BMI 25.7 BP 146/84 H Blood Pressure Location Lt brachial Position Sitting Pulse 94 Intake Visit Reasons: Follow up From New Medication Intake Note: Follow-up New medication issues c/o gasping for breath Slider Assembler Required: No Manager Instrumentation: Manager Instrumentation Present Accompanied by: Spouse Allergies penicillin G Allergy (Mild, Verified 03/11/23 13:08) rash Medication List - Last Reconciled 11/08/23 by Kain Sheikh MD amlodipine 2.5 mg PO DAILY aspirin (Ecotrin Low Strength) 81 mg PO DAILY coenzyme Q10 100 mg PO DAILY ferrous fumarate 325 mg PO DAILY lisinopril 20 mg PO .PM lisinopril-hydrochlorothiazide 20-25 mg 1 tab PO DAILY potassium chloride ER 10 mEq PO DAILY psyllium husk (Metamucil) 0.4 grams PO QHS rosuvastatin 5 mg PO DAILY Saccharomyces boulardii (Daily Probiotic (S. boulardii)) 250 mg PO BID HPI Comments Details: Monie comes for follow-up. Since starting amlodipine her home blood pressures are better control but still labile with some reading still in the 150 systolic range. She remains very anxious about overall condition. She says she is not currently doing cardiac rehab due to elevated blood pressure. She occasionally has gas for her breath. She denies any orthopnea, PND, leg edema. Denies any lightheadedness, syncope. No significant chest discomfort. Currently taking lisinopril 20 mg at nighttime and lisinopril hydrochlorothiazide 20-25 mg in the morning. Also taking amlodipine 2.5 mg in the morning. [facility] Medical History (Updated 11/08/23 @ 15:07 by Kain Sheikh MD) Aortic stenosis HTN (hypertension) Surgical History (Updated 11/08/23 @ 15:07 by Kain Sheikh MD) S/P AVR Hx of hysterectomy Family History Father Mitral valve disease Mother HTN (hypertension) Social History Patient Tobacco Use Status: Never used Tobacco Review of Systems Const Denies chills, Denies fatigue, Denies fever(s), Denies frequent falls, Denies weakness, Denies weight gain and Denies weight loss ENT Denies dizziness Card Denies chest pain, Denies leg edema, Denies lightheadedness, Denies palpitations, Denies dyspnea, Denies dyspnea on exertion, Denies orthopnea and Denies other (loss of consciousness) Resp Denies cough, Denies dyspnea and Denies dyspnea on exertion GI Denies hematochezia and Denies change in stool character Musc Denies abnormal gait, Denies muscle weakness, Denies numbness, Denies radiating pain into limb and Denies tingling Neuro Denies abnormal gait, Denies dizziness, Denies frequent falls, Denies numbness, Denies tingling and Denies weakness Endo Denies fatigue and Denies palpitations Physical Exam Vital Signs: Last Vital Signs Pulse 94 11/08/23 14:20 BP 146/84 H 11/08/23 14:20 BMI result Body Mass Index 25.7 Const General: cooperative, comfortable, no acute distress, alert, awake, anxious and well groomed Nutritional Appearance: average body habitus Orientation/consciousness: patient oriented x3 Neck Neck: Yes trachea midline, Yes supple and Yes no JVD Chest Chest palpation & inspection: other (Well-healed sternotomy scar) Resp Effort & Inspection: normal respiratory effort Auscultation: diminished lung sounds on the right in the lower lung crystal Cardio Jugular venous distension: no JVD Rate: regular rate Rhythm: regular rhythm Heart sounds: S1 normal heart sound present, S2 normal heart sound present, no click, no gallops and no murmurs Skin General skin exam: no rashes or lesions noted Neuro General: patient oriented x3 and no focal motor deficits Extrem General: Yes no clubbing, cyanosis or edema Assessment & Plan Assessment & Plan (1) S/P AVR: Comment: 21 mm Bioprosthetic valve, mean gradient 13 mm of HG, post op Echo Code(s): Z95.2 - Presence of prosthetic heart valve Category: Surgical Plan: Status post aortic valve replacement with bioprosthetic valve with normally functioning valve at this point time. Continue aspirin therapy. Continue statin therapy with target goal LDL less than 100 mg/dL. SBE prophylaxis as per ACC/aha guidelines. Continue aggressive control blood pressure. Encouraged to continue to finish phase 2 cardiac rehabilitation. (2) HTN (hypertension): Code(s): I10 - Essential (primary) hypertension Category: Medical Plan: Hypertension with labile blood pressure also driven by her anxiety. Have taken the liberty to prescribe a sertraline 12.5 mg to her regimen. Also meanwhile have discontinue lot of her nonessential medications including iron therapy and potassium therapy. Switch lisinopril hydrochlorothiazide to 40-25 mg in the a.m. and amlodipine 5 mg at nighttime. Participate in stress mitigation strategies. Low-salt diet. Maintain adequate hydration. Follow up in the clinic in 3 months time, sooner p.r.n.. Thank you for allowing me to partake in the care Medications: New sertraline 12.5 mg (1/2 x 25 mg) PO DAILY 30 tabs 1RF lisinopril-hydrochlorothiazide 20-12.5 mg 2 tabs PO DAILY 180 tabs 1RF amlodipine 5 mg PO QPM 90 tabs 1RF Discontinued amlodipine Discontinued Reason: Doctor's Order 2.5 mg PO DAILY 90 tabs 1RF Coding Level of Care Code Est Pt Level 4 (06311) Diagnoses S/P AVR Z95.2 HTN (hypertension) I10
== END 2023-11-08 15:00 | disposition home or self-care (01) ==
PROVIDERS: PCP Internal Medicine; Visit Provider Internal Medicine Cardiovascular Disease
DX: Z95.2 Presence of prosthetic heart valve (principal); I10 Essential (primary) hypertension
CPT/HCPCS: 99214

== ENCOUNTER → 2023-11-08 14:15 | Outpatient (BNVA) | payer BC, SELFPAY | PROVIDERS: PCP Internal Medicine; Visit Provider Internal Medicine Cardiovascular Disease ==

== ENCOUNTER 2024-01-07 07:00 | Outpatient (RCR) | payer BC, SELFPAY | END 2024-01-13 07:11 | disposition home health service (06) | LOC: HO.CR 07:00 | PROVIDERS: PCP Internal Medicine; Visit Provider Physician Assistant Surgical | DX: Z95.3 Presence of xenogenic heart valve (principal); I35.0 Nonrheumatic aortic (valve) stenosis; I10 Essential (primary) hypertension | CPT/HCPCS: 93798 ==

== ENCOUNTER 2024-02-03 08:23 | Outpatient (REF) | payer BC, SELFPAY ==
[2024-02-03 12:21] LABS: Cholesterol 179 mg/dL (<200); HDL Cholesterol 73 mg/dL (>40); LDL Cholesterol Calculated 87 mg/dL (<100); Triglycerides 99 mg/dL (<150)
== END 2024-02-03 08:24 | disposition home or self-care (01) ==
LOC: HO.WFDLDS 08:23
PROVIDERS: Visit Provider Internal Medicine Cardiovascular Disease
DX: I25.10 Atherosclerotic heart disease of native coronary artery without angina pectoris (principal); Z95.2 Presence of prosthetic heart valve
CPT/HCPCS: 36415; 80061

== ENCOUNTER 2024-02-10 12:51 | Outpatient (AMB) | payer BC, SELFPAY ==
--- NOTE | 2024-02-10 12:57 | A.OFFVIS_ITS ---
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 boulardii)) 250 mg PO BID sertraline 12.5 mg (1/2 x 25 mg) PO DAILY HPI Comments Details: Monie comes for follow-up. She says she has done well with antianxiety treatment. She feels much calmer. Blood pressures been extremely well optimized on current therapy. She denies any cardiac symptoms. Has gained some weight but no exertional symptoms. No exertional chest pain or shortness of breath. LDL is well optimized. Planning to undergo dental treatment in near future [facility] Medical History Aortic stenosis HTN (hypertension) Surgical History S/P AVR Hx of hysterectomy Family History Father Mitral valve disease Mother HTN (hypertension) Social History Patient Tobacco Use Status: Never used Tobacco Review of Systems Const Denies chills, Denies fatigue, Denies fever(s), Denies frequent falls, Denies weakness, Denies weight gain and Denies weight loss ENT Denies dizziness Card Denies chest pain, Denies leg edema, Denies lightheadedness, Denies palpitations, Denies dyspnea, Denies dyspnea on exertion, Denies orthopnea and Denies other (loss of consciousness) Resp Denies cough, Denies dyspnea and Denies dyspnea on exertion GI Denies hematochezia and Denies change in stool character Musc Denies abnormal gait, Denies muscle weakness, Denies numbness, Denies radiating pain into limb and Denies tingling Neuro Denies abnormal gait, Denies dizziness, Denies frequent falls, Denies numbness, Denies tingling and Denies weakness Endo Denies fatigue and Denies palpitations Physical Exam Vital Signs: Last Vital Signs Pulse 92 02/10/24 12:58 BP 122/78 02/10/24 12:58 BMI result Body Mass Index 27.6 Const General: cooperative, comfortable, no acute distress, alert, awake, anxious and well groomed Nutritional Appearance: average body habitus Orientation/consciousness: patient oriented x3 Neck Neck: Yes trachea midline, Yes supple and Yes no JVD Chest Chest palpation & inspection: other (Well-healed sternotomy scar) Resp Effort & Inspection: normal respiratory effort Auscultation: diminished lung sounds on the right in the lower lung crystal Cardio Jugular venous distension: no JVD Rate: regular rate Rhythm: regular rhythm Heart sounds: S1 normal heart sound present, S2 normal heart sound present, no click, no gallops and no murmurs Skin General skin exam: no rashes or lesions noted Neuro General: patient oriented x3 and no focal motor deficits Extrem General: Yes no clubbing, cyanosis or edema Assessment & Plan Assessment & Plan (1) S/P AVR: Comment: 21 mm Bioprosthetic valve, mean gradient 13 mm of HG, post op Echo Code(s): Z95.2 - Presence of prosthetic heart valve Category: Surgical Plan: Status post aortic valve replacement bioprosthetic aortic valve working well clinically as well as by echocardiogram. Follow-up echocardiogram in 7 months. Continue low-dose aspirin therapy. Continue aggressive risk factor modification. SBE prophylaxis as per [facility] guidelines, patient allergic to penicillin, will prescribe clindamycin. (2) HTN (hypertension): Code(s): I10 - Essential (primary) hypertension Category: Medical Plan: Hypertension is much better control with improvement in her overall anxiety score. Continue antianxiety treatment. Continue current therapy for blood pressure. Blood pressure is extremely well optimized. Low-salt diet was discussed. Stress mitigation strategies was discussed. Advised to participate in regular physical activity and participate in weight loss program. Follow up in the clinic in 6 months time, sooner p.r.n.. Thank you for allowing me to partake in his care Orders: Orders CA echo transthoracic complete 7 Months Z95.2 - Presence of prosthetic heart valve Medications: New clindamycin HCl 600 mg (2 x 300 mg) PO ONCE 2 caps 2RF Refilled sertraline 12.5 mg (1/2 x 25 mg) PO DAILY 30 tabs 0RF Coding Level of Care Code Est Pt Level 4 (19562) Diagnoses S/P AVR Z95.2 HTN (hypertension) I10
[2024-02-10 12:58] VITALS: BP 122/78; PULSE 92; BMI 27.6
== END 2024-02-10 13:18 | disposition home or self-care (01) ==
PROVIDERS: PCP Internal Medicine; Referring Provider Internal Medicine; Visit Provider Internal Medicine Cardiovascular Disease
DX: Z95.2 Presence of prosthetic heart valve (principal); I10 Essential (primary) hypertension
CPT/HCPCS: 99214

== ENCOUNTER → 2024-02-10 12:51 | Outpatient (BNVA) | payer BC, SELFPAY | PROVIDERS: PCP Internal Medicine; Visit Provider Internal Medicine Cardiovascular Disease ==

== ENCOUNTER 2024-08-25 09:13 | Outpatient (REF) | payer BC, SELFPAY ==
--- OUTSIDE RECORDS SUMMARY | 2024-08-25 09:42 | XMS_ITS | Data Portability ---
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 REVIEW OF PRIOR EXTERNAL NOTES/RESULTS, ORDERING OF TEST(S) CATEGORY 2. 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) MDM MODERATE MUST MEET 2 OUT OF 3 ELEMENTS: PROBLEMS, DATA OR RISK ELEMENT 1: PROBLEMS ADDRESSED 1 OR MORE CHRONIC ILLNESS WITH EXACERBATION OR 2 OR MORE STABLE CHRONIC ILLNESSES OR 1 UNDIAGNOSED NEW PROBLEM OR 1 ACUTE ILLNESS W/SYMPTOMS OR 1 ACUTE COMPLICATED INJURY ELEMENT 2: DATA MUST MEET 1 OF 3 CATEGORIES CATEGORY 1: REVIEW OF PRIOR EXTERNAL NOTES, REVIEW OF RESULTS, ORDERING OF EACH TEST, ASSESSMENT REQUIRING INDEPENDENT HISTORIAN OR CATEGORY 2: INDEPENDENT INTERPRETATION OF TESTS BY ANOTHER PHYSICIAN OR SPECIALIST OR CATEGORY 3: DISCUSSION OF MGT OR TEST INTERPRETATION W/EXTERNAL PHYSICIAN OR SPECIALIST ELEMENT 3: RISK RISK OF COMPLICATIONS AND/OR MORBIDITY OR MORTALITY OF PATIENT MANAGEMENT PROVIDER MUST THOROUGHLY DOCUMENT EACH ELEMENT THAT IS COVERED Not available 09/08/2023 15:40:11 09/22/2023 09/22/2023 [id number] [place] [id number]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) [facility] MODERATE MUST MEET 2 OUT OF 3 ELEMENTS: PROBLEMS, DATA OR RISK ELEMENT 1: PROBLEMS ADDRESSED 1 OR MORE CHRONIC ILLNESS WITH EXACERBATION OR 2 OR MORE STABLE CHRONIC ILLNESSES OR 1 UNDIAGNOSED NEW PROBLEM OR 1 ACUTE ILLNESS W/SYMPTOMS OR 1 ACUTE COMPLICATED INJURY ELEMENT 2: DATA MUST MEET 1 OF 3 CATEGORIES CATEGORY 1: REVIEW OF PRIOR EXTERNAL NOTES, REVIEW OF RESULTS, ORDERING OF EACH TEST, ASSESSMENT REQUIRING INDEPENDENT HISTORIAN OR CATEGORY 2: INDEPENDENT INTERPRETATION OF TESTS BY ANOTHER PHYSICIAN OR SPECIALIST OR CATEGORY 3: DISCUSSION OF MGT OR TEST INTERPRETATION W/EXTERNAL PHYSICIAN OR SPECIALIST ELEMENT 3: RISK RISK OF COMPLICATIONS AND/OR MORBIDITY OR MORTALITY OF PATIENT MANAGEMENT PROVIDER MUST THOROUGHLY DOCUMENT EACH ELEMENT THAT IS COVERED Not available 09/22/2023 11:00:21 10/22/2023 10/22/2023 [id number] [place] [id number]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) [facility] MODERATE MUST MEET 2 OUT OF 3 ELEMENTS: PROBLEMS, DATA OR RISK ELEMENT 1: PROBLEMS ADDRESSED 1 OR MORE CHRONIC ILLNESS WITH EXACERBATION OR 2 OR MORE STABLE CHRONIC ILLNESSES OR 1 UNDIAGNOSED NEW PROBLEM OR 1 ACUTE ILLNESS W/SYMPTOMS OR 1 ACUTE COMPLICATED INJURY ELEMENT 2: DATA MUST MEET 1 OF 3 CATEGORIES CATEGORY 1: REVIEW OF PRIOR EXTERNAL NOTES, REVIEW OF RESULTS, ORDERING OF EACH TEST, ASSESSMENT REQUIRING INDEPENDENT HISTORIAN OR CATEGORY 2: INDEPENDENT INTERPRETATION OF TESTS BY ANOTHER PHYSICIAN OR SPECIALIST OR CATEGORY 3: DISCUSSION OF MGT OR TEST INTERPRETATION W/EXTERNAL PHYSICIAN OR SPECIALIST ELEMENT 3: RISK RISK OF COMPLICATIONS AND/OR MORBIDITY OR MORTALITY OF PATIENT MANAGEMENT PROVIDER MUST THOROUGHLY DOCUMENT EACH ELEMENT THAT IS COVERED Not available 10/22/2023 14:07:16 03/08/2024 03/08/2024 [id number] [place] [id number]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) [facility] MODERATE MUST MEET 2 OUT OF 3 ELEMENTS: PROBLEMS, DATA OR RISK ELEMENT 1: PROBLEMS ADDRESSED 1 OR MORE CHRONIC ILLNESS WITH EXACERBATION OR 2 OR MORE STABLE CHRONIC ILLNESSES OR 1 UNDIAGNOSED NEW PROBLEM OR 1 ACUTE ILLNESS W/SYMPTOMS OR 1 ACUTE COMPLICATED INJURY ELEMENT 2: DATA MUST MEET 1 OF 3 CATEGORIES CATEGORY 1: REVIEW OF PRIOR EXTERNAL NOTES, REVIEW OF RESULTS, ORDERING OF EACH TEST, ASSESSMENT REQUIRING INDEPENDENT HISTORIAN OR CATEGORY 2: INDEPENDENT INTERPRETATION OF TESTS BY ANOTHER PHYSICIAN OR SPECIALIST OR CATEGORY 3: DISCUSSION OF MGT OR TEST INTERPRETATION W/EXTERNAL PHYSICIAN OR SPECIALIST ELEMENT 3: RISK RISK OF COMPLICATIONS AND/OR MORBIDITY OR MORTALITY OF PATIENT MANAGEMENT PROVIDER MUST THOROUGHLY DOCUMENT EACH ELEMENT THAT IS COVERED Not available 03/08/2024 10:17:35 Plan of Treatment Reminders Order Date Submit Date Provider Last Modified By Organization Details Last Modified Time Details Appointments ANNUAL EXAM 2024 01:30P M DR ALTAMIRANO Not available Not available Not available Lab HbA1c (hemoglob in A1c), blood 2023 [facility], [address] [place] [address], [id number], 03/08/2024 10:20:28 CMP, serum or plasma 2023 024 [facility], [address] [place] [address], [id number], 03/08/2024 10:20:28 CBC 2023 024 [facility], [address] [place] [address], [id number], 03/08/2024 10:20:28 vitamin D, 25-hydrox y, total, serum 2023 024 [facility], [address] [place] [address], [id number], 03/08/2024 10:20:28 CBC 2023 024 [facility], [address] [place] [address], [id number], 09/16/2023 11:08:29 ferritin, serum or plasma 2023 024 [facility], [address] [place] [address], [id number], 09/08/2023 15:40:01 folate, serum 2023 024 [facility], [address] [place] [address], [id number], 09/08/2023 15:40:01 iron + total iron-bind ing capacity (TIBC), serum 2023 [facility], [address] [place] [address], [place], [address], 09/08/2023 15:40:01 retic count, blood 2023 [facility], [address] [place] [address], [address], 09/08/2023 15:40:01 vitamin B12, serum 2023 024 [facility], [address] [place] [address], [id number], 09/08/2023 15:40:01 BMP, serum or plasma 2023 024 [facility], [address] [place] [address], [place], [address], 09/08/2023 15:40:00 CBC 2023 [facility], [address] [place] [address], [id number], 09/16/2023 11:08:29 Referral None recorded. Procedures None recorded. Surgeries None recorded. Imaging None recorded. Medication Orders fluocinol one acetonide oil 0.01 % ear drops 2023 [id number], [address], [place], [id number], 03/08/2024 10:16:56 lisinopri l 10 mg tablet 2023 [facility], [facility], [place], [id number], 03/27/2024 15:07:41 Patient TargetsNo targets recorded. Patient Instructions Encounter Date Encounter Id Patient Instructions Last Modified By Organization Details Last Modified Time 09/08/2023 [id number] high blood pressure: care instructions Not available 09/08/2023 15:27:59 learning about high blood pressure Not available 09/08/2023 15:27:59 09/22/2023 [id number] high blood pressure: care instructions Not available 09/22/2023 10:53:18 learning about high blood pressure Not available 09/22/2023 10:53:18 10/22/2023 [id number] hypokalemia: car e instructions Not available 10/22/2023 14:09:00 Reason for Referral None Reported. Results Created Date Observation Date Name Description Value Unit Range Abnormal Flag Note LastModifiedBy Organization Detail LastModifiedTime 02/09/20 24 02/09/2024 MAMMO , scree evelio, digit al, bilat eral No observ ation record ed. [facility] - Callback Orders Only [address] [place], [address], 03/08/2024 10:08:49 Result Notes None recorded. 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 Kev Altamirano DO [address] [place] [address], [phone], [facility] 2 09:20:24 Diarrhea 60671740 Active 2021 Kev Altamirano DO [address] [place] [address], [phone], [facility] 2 11:13:50 Right flank pain 774124082 Active 2022 CAROLINA ONTIVEROS [address] [place], [address], [facility] 3 12:27:54 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 2022 Kev Altamirano, [address] [place] [address], [address], [facility] 3 15:04:13 Clostrid ium difficil e colitis 629323395 Active 2022 Kev Altamirano, DO [address] [place] [address], [address], [facility] 3 10:26:46 Abdomina l pain 80062285 Active 2022 CAROLINA ONTIVEROS [address] [place] [address], [address], [facility] 3 14:05:42 Fever with chills 912263237 Active 2022 CAROLINA ONTIVEROS [address] [place] [address], [address], [facility] 3 14:03:36 Pyrexia of unknown origin 9423691 Active 2022 CAROLINA ONTIVEROS [address] [place] [address], [address], [facility] 3 14:08:52 Hypokale yasmine 27055235 Active 2022 CAROLINA ONTIVEROS [address] [place] [address], [address], [facility] 3 13:23:51 Constipa tion 80604694 Active 2022 Kev Altamirano, [address] [place] [address], [address], [facility] 3 22:51:00 Systolic murmur 90300633 Active 2022 Kev Altamirano DO [address] [place], [address], [facility] 3 15:29:29 Severe aortic valve stenosis 263929063 Completed 202310/22/2023 Kev Altamirano, DO [address] [place] [address], [address], [facility] 4 14:07:51 Critical stenosis of aortic valve 862320430 Active 2022 Kev Altamirano, DO [address] [place] [address], [address], [facility] 3 14:23:02 Drug-ind uced hypokale yasmine 046495061 Active 2023 Kev Altamirano, DO [address] [place] [address], [address], [facility] 4 21:25:01 Severe aortic valve stenosis 600157113 Active 2023 Kev Altamirano, DO [address] [place] [address], [address], [facility] 4 14:07:51 Osteopen ia 824759996 Active 2017 Not Available [facility] 13:48:11 Family history of diabetes mellitus 256755766 Active 2017 Not Available [facility] 13:48:11 Impaired fasting glycemia 716298809 Active 2017 Not Available [facility] 13:48:11 History of hysterec ghulam 997307278 Active 2017 Not Available [facility] 13:48:11 [facility] ayanna 29432960 Active 2017 Not Available [facility] 13:48:11 Osteoart hritis 885135206 Active 2017 C spine Not Available [facility] 13:48:11 Problem Notes None recorded. Procedures Surgical History Date Name Laterality Status Provider Name and Address Organization Details Recorded Time 09/18/19 16 colonoscopy completed Divya Velasco NP, [address] [place], [address], [facility] 06/07/2018 14:08:52 total abdominal hysterectomy completed Divya Velasco NP, [address] [place], [address], [facility] 06/07/2018 14:02:55 Imaging Results Imaging Date Name Status LastModified by Organiz ation Details LastModified Time 02/09/2024 MAMMO, screening, digital, bilateral completed [facility] - Callback Orders Only [address] [facility], [place], [address], 03/08/2024 10:08:49 Procedure Notes None recorded. Medical Equipment None Reported. Allergies Allergen ID Allergen Name Allergen Category Reaction Reaction Severity Criticality Documentation Date Start Date Code Code System Note Provider Name and Address Organization Details Recorded Time 155 penicilli n V Not available Not available Not available Not available 07/09/2017 7984 [facility] 15:27:35 156 bee pollen environme nt,medica tion Not available Not available Not available 07/09/2017 53448 7 RxNorm Latanya bay [facility] 8 15:29:26 Medications Name Sig Start Date Stop Date Status Note LastModified by Organization Details LastModified Time compound drug 08/12 completed Not Available Not Available Not Available cyclobenzap rine 10 mg tablet Take 1 tablet twice a day by oral route as needed. 08/12 completed Not Available Not Available Not Available furosemide 40 mg tablet TAKE 1 TABLET BY MOUTH DAILY 10/21 completed Not Available Not Available Not Available clindamycin HCl 300 mg capsule TAKE 2 CAPSULES BY MOUTH ONCE active Not Available Not Available No t Available lisinopril 20 mg-hydrochl orothiazide 12.5 mg tablet TAKE 2 TABLETS DAILY. NEW DOSE active Not Available Not Available No t Available azithromyci n 250 mg tablet TAKE 2 TABLETS (500 MG) BY ORAL ROUTE ONCE DAILY FOR 1 DAY THEN 1 TABLET (250 MG) BY ORAL ROUTE ONCE DAILY FOR 4 DAYS 02/25 completed Not Available Not Available Not Available amiodarone 200 mg tablet TAKE 1 TABLET BY MOUTH TWO TIMES A DAY FOR 26 DAYS 09/21 completed Not Available Not Available Not Available metronidazo le 0.75 % (37.5 mg/5 gram) vaginal gel INSERT 1 APPLICATO RFUL VAGINALLY DAILY AT BEDTIME FOR 5 DAYS 08/12 completed Not Available Not Available Not Available amlodipine 2.5 mg tablet active Not Available Not Available Not Available potassium chloride ER 10 mEq tablet,exte nded release TAKE 1 TABLET BY MOUTH EVERY DAY 03/08 completed Not Available Not Available Not Available metronidazo le 500 mg tablet TAKE 1 TABLET BY MOUTH EVERY 8 HOURS WITH MEALS FOR 10 DAYS 02/03 completed Not Available Not Available Not Available amlodipine 5 mg tablet TAKE 1 TABLET DAILY active Not Available Not Available No t Available ciprofloxac in 500 mg tablet Take 1 tablet every 12 hours by oral route for 10 days. 08/21 completed Not Available Not Available Not Available vancomycin 125 mg capsule TAKE 1 CAPSULE BY MOUTH EVERY 6 HOURS FOR 14 DAYS 02/03 completed Not Available Not Available Not Available ferrous sulfate 325 mg (65 mg iron) tablet Take 1 tablet every day by oral route. 03/08 completed Not Available Not Available Not Available Proctofoam HC 1 %-1 % 08/17 completed Not Available Not Available Not Available lisinopril 10 mg tablet Take 1 tablet every day by oral route for 90 days. 03/27 completed Not Available Not Available Not Available metoprolol tartrate 50 mg tablet TAKE 1 TABLET BY MOUTH TWICE DAILY 10/21 completed Not Available Not Available Not Available sertraline 25 mg tablet TAKE 1/2 TABLET DAILY active Not Available Not Available No t Available lisinopril 20 mg-hydrochl orothiazide 25 mg tablet 04/30 completed Not Available Not Available Not Available hydrocortis one 2.5 % topical cream APPLY TOPICALLY TO THE AFFECTED AREA TWICE DAILY FOR 10 DAYS 02/03 completed Not Available Not Available Not Available lisinopril 5 mg tablet TAKE 1 TABLET BY MOUTH EVERY DAY 09/27 completed Not Available Not Available Not Available furosemide 20 mg tablet TAKE 1 TABLET BY MOUTH DAILY FOR 7 DAYS 09/21 completed Not Available Not Available Not Available lidocaine 3 %-hydrocort isone 0.5 % topical cream 02/25 completed Not Available Not Available Not Available epinephrine 0.3 mg/0.3 mL injection, auto-inject or INJECT DIRECTED BY PRESCRIBE R active Not Available Not Available No t Available estradiol 0.01% (0.1 mg/gram) vaginal cream Insert 1 g every week by vaginal route. 08/30 completed Not Available Not Available Not Available lisinopril 2.5 mg tablet TAKE 1 TABLET BY MOUTH DAILY FOR 14 DAYS 09/21 completed Not Available Not Available Not Available naproxen 500 mg tablet Take 1 tablet twice a day by oral route with meals. 08/12 completed Not Available Not Available Not Available Pneumovax-2 3 25 mcg/0.5 mL injection syringe 08/12 completed Not Available Not Available Not Available rosuvastati n 5 mg tablet TAKE 1 TABLET DAILY active Not Available Not Available No t Available rosuvastati n 20 mg tablet TAKE 1 TABLET BY MOUTH DAILY 10/21 completed Not Available Not Available Not Available metoprolol tartrate 25 mg tablet Take 1 tablet twice a day by oral route for 90 days. 09/27 completed Not Available Not Available Not Available lactulose 10 gram/15 mL oral solution TAKE 15 ML BY MOUTH EVERY DAY IN THE MORNING 02/03 completed Not Available Not Available Not Available Vitamin D3 qd 03/09 completed Not Available Not Available Not Available Culturelle qd 03/09 completed Not Available Not Available Not Available multivitami n qd 02/03 completed Not Available Not Available Not Available fluocinolon e acetonide oil 0.01 % ear drops INSTILL 3 DROPS TO AFFECTED EAR TWICE DAILY FOR 10 DAYS DIRECTED active Not Available Not Available No t Available Prevnar 13 (PF) 0.5 mL intramuscul ar syringe 06/07 completed Not Available Not Available Not Available Adult 50 Plus Probiotic 4 billion cell capsule Take 1 capsule every day by oral route for 30 days. 2022 active Not Available Not Available Not Avai lable Caltrate 600mg bid 09/07 completed Not Available Not Available Not Available Flonase Allergy Relief 50 mcg/actuati on nasal spray,suspe nsion [place] 1 spray every day by intranasa l route for 30 days. 08/12 completed Not Available Not Available Not Available Shingrix (PF) 50 mcg/0.5 mL intramuscul ar suspension, kit 02/10 completed Not Available Not Available Not Available Fluzone High-Dose 4289-0696 (PF) 180 mcg/0.5 mL intramuscul ar syringe 08/30 completed Not Available Not Available Not Available Fluad 2018- 65yr up(PF)45 mcg(15 mcgx3)/0.5 mL intramuscul ar syringe 02/10 completed Not Available Not Available Not Available Flowflex COVID-19 Antigen Home Test kit 08/12 completed Not Available Not Available Not Available Vitals Date Recorded Body height Body mass index (BMI) Body weight Heart rate Respiratory rate Oxygen saturation Oxygen saturation in Arterial blood by Pulse oximetry Systolic blood pressure Diastolic blood pressure Provider Name and Address Organization Details Last Updated DateTime 4 161.29 cm 26.2 kg/m2 50626.8 6 g 88 /min 18 /min 97 % 97 % 142 mm[Hg] 82 mm[Hg] Jimmy Prater [facility] 4 15:12:18 Date Recorded Body height Body mass index (BMI) Body weight Heart rate Respiratory rate Oxygen saturation Oxygen saturation in Arterial blood by Pulse oximetry Body temperature Systolic blood pressure Diastolic blood pressure Provider Name and Address Organization Details Last Updated DateTime 4 161.29 cm 25 kg/m2 94102.4 3 g 64 /min 16 /min 96 % 96 % 98.8 [degF] 162 mm[Hg] 90 mm[Hg] Jimmy Prater [facility] 4 10:30:20 Date Recorded Body height Body mass index (BMI) Body weight Heart rate Oxygen saturation Oxygen saturation in Arterial blood by Pulse oximetry Systolic blood pressure Diastolic blood pressure Provider Name and Address Organization Details Last Updated DateTime 4 161.29 cm 26.9 kg/m2 16476.0 2 g 66 /min 99 % 99 % 158 mm[Hg] 84 mm[Hg] Oksana Moncada [facility] 4 13:43:31 Date Recorded Body height Body mass index (BMI) Body weight Heart rate Oxygen saturation Oxygen saturation in Arterial blood by Pulse oximetry Systolic blood pressure Diastolic blood pressure Provider Name and Address Organization Details Last Updated DateTime 4 161.29 cm 27.4 kg/m2 98478 g 88 /min 98 % 98 % 126 mm[Hg] 70 mm[Hg] Kev Altamirano, DO [address] [place], [address], [facility] 4 10:06:10 Social History Question Answer Notes LastModified by Organizat ion Details LastModified Time Tobacco Smoking Status Never Smoker Not Available [facility] 03/12/2020 03:36:23 What Was The Date Of Your Most Recent Tobacco Screening? 03/08/2024 Information not available 03/08/2024 Do You Or Have You Ever Used Any Other Forms Of Tobacco Or Nicotine? No [email or web address] Information not available 04/26/2023 Sex: Unknown Functional Status None recorded. Mental Status None recorded. Family History Relationship Description Onset Age of this Age Resolved Age Notes LastModified by Organization Details LastModified Time Mother Diabetes mellitus htn [email or web address] Not available 2018 14:05:38 Father Hypertensive disorder [email or web address] Not available 2018 14:05:57 Medical History No medical history recorded. Gynecological History Statement/Question Response LMP Unknown Obstetrics History GPAL:G 0 P 0 0 0 0 Immunizations Vaccine Type Date Status Note Provider Nam e and Address Organization Details Recorded Time Influenza, split virus, quadrivalent, preservative 02/14/20 21 completed CAROLINA ONTIVEROS [address] [place] [address], [address], [facility] 02/14/2021 13:41:40 Tdap 02/22/20 21 completed Kev Altamirano DO [address] [place] [address], [address], [facility] 02/23/2021 08:52:18 COVID-19, mRNA, LNP-S, PF, 30 mcg/0.3 mL dose 08/20/19 21 completed Kev Altamirano DO [address] [place] [address], [address], [facility] 03/04/2021 09:00:50 Influenza, split virus, quadrivalent, preservative 03/06/20 22 completed Kev Altamirano DO [address] [place] [address], [address], [facility] 03/09/2022 10:26:53 Influenza, split virus, quadrivalent, preservative 03/02/20 18 completed Mikki bay [facility] 08/30/2018 08:57:37 Pneumococcal conjugate PCV 13 03/02/20 18 completed Mikki bay [facility] 08/30/2018 08:57:37 zoster live 02/14/20 14 completed Mikki bay [facility] 08/30/2018 08:57:37 zoster live 10/13/19 19 completed Kev Altamirano DO [address] [place] [address], [address], [facility] 10/13/2018 08:38:09 zoster live 12/23/19 19 completed Latanya bay [facility] 12/23/2018 08:17:04 Influenza, split virus, quadrivalent, preservative 12/23/19 19 [facility] 08:17:14 pneumococcal polysaccharide PPV23 05/15/19 20 [facility] 05/16/2019 08:17:36 COVID-19, mRNA, LNP-S, PF, 30 mcg/0.3 mL dose 07/30/19 21 completed Kev Altamirano DO [address] [place] [address], [address], [facility] 08/12/2020 10:17:22 Past Encounters Encounter ID Performer Location Encounter Start Date Encounter Closed Date Diagnosis/Indication Diagnosis SNOMED-CT Code Diagnosis ICD10 Code Diagnosis Note [id number] Kev Altamirano DO [facility] Internal [address],[place] [address] 08/17/2017 08:46:38 08/17/2017 09:58:20 Adult health examination 604396796 Z00.00 Active or passive immunization 824938994 Z23 Eczema of external auditory canal 37399873 H60.549 [id number] August RENETTA Samuel [facility] [address] [facility] [place], [place] [address] 02/07/2018 09:50:57 02/07/2018 10:58:07 Essential hypertension 92113470 I10 stable has 6 month f/u in a couple weeks Pneumonia [id number] J18. 9 mucinex-dm fluids rest f/u as needed [id number] Kev Altamirano [facility] Internal Medicine [address] [facility] on [address], [place] [facility] [place] [address] 02/25/2018 08:48:14 02/25/2018 09:25:33 Essential hypertension 56229852 I10 will rechk in 6 mo Impaired f asting glycemia 571090966 R73.01 stable going to [facility] Pneumonia 227864525 J18. 9 resolved and is overall recup [id number] Divya Velasco NP, S [facility] Internal Medicine [address] [facility] [address],[place] [address] 06/07/2018 15:25:48 06/07/2018 16:15:28 Spasm of back muscles 442225741 M62.830 Essential hypertension 67022707 I10 stable [id number] Kev Altamirano [facility] Internal [facility] [address] [facility] [address],[place] [address] 08/30/2018 08:50:29 08/30/2018 09:38:08 Adult health examination 076585728 Z00.00 doing great Active or passive immunization 050800435 Z23 needs shingles Screening for cardiovascular system disease 980777575 Z13.6 also given a systolic heart murmur, will ask to get an echo if not already done will check old chart Screening for osteoporosis 124567475 Z13.820 done last year Screening mammography 24 388731 Z12.31 done mar Kve Altamirano [facility] Internal Medicine [address] [facility] [address], [facility] [place] [address] 02/10/2019 09:20:01 02/10/2019 12:33:39 Hypertensive disorder 81912096 I10 reviewed lab in detail all wnl cholest excellent Essential hypertension 61310298 I10 will rechk in 6 mo Impaired f asting glycemia 998298336 R73.01 stable going to [facility] in [place] [facility] Internal Medicine [address] [facility] [address],[place] [address] 09/15/2019 09:26:08 09/15/2019 10:42:51 Acute pharyngitis 691356270 J02.9 [id number] Kev Altamirano [facility] Internal Medicine [address] [facility] [address],[place] [facility] [place] [address] 02/05/2020 16:04:27 02/05/2020 17:04:58 Adult health examination 207352132 Z00.00 doing great [id number] Kev Altamirano [facility] [address] [facility] [address],[place] [address] 08/12/2020 10:09:26 08/12/2020 11:00:19 Impaired fasting glycemia 923763685 R73.01 will need to have this a1c done Essential hypertension 93839525 I10 will rechk in 6 mo [id number] Kev Altamirano [facility] Internal Medicine [address] [facility] [address],[place] [address] 03/04/2021 08:52:06 03/04/2021 13:59:40 Active or passive immunization 019684252 Z23 needs shingles Adult [facility] th examination 204730261 Z00.00 doing great Postmenopa usal osteopenia 410260988 M85.80 [id number] Kev Altamirano [facility] Internal Medicine [address] [facility] [address],[place] [address] 09/03/2021 09:02:03 09/03/2021 14:48:50 Essential hypertension 29614591 I10 will rechk in 6 mo Impaired f asting glycemia 775556479 R73.01 will need to have this a1c done next lab 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 we will refill Osteopenia 998866999 M85 .80 noted in hip we will have her followed with this ' [id number] Kev Altamirano [facility] Internal Medicine [address] [facility] [address],[place] [facility] [place] [address] 12/30/2021 09:31:47 12/30/2021 11:39:49 Diarrhea 63055135 R19.7 after long discussion she will try scrambled eggs and clear liquids and occ immodium today only and see if she can prevent a return of the watery diarrhea note she has not been on abx recently and has not been around anyone with similar episodes [id number] Kev Altamirano [facility] Internal Medicine [address] [facility],[place] [address] 03/09/2022 10:19:37 03/09/2022 11:37:12 Active or passive immunization 077962554 Z23 patient advised she is due for flu shot Adult heal th examination 329618310 Z00.00 doing great Advance care planning 71 2042735 Z71.89 done [id number] Kev Altamirano [facility] Internal Medicine [address] [facility], [place] 7 08/12/2022 14:08:08 08/12/2022 15:15:54 Diarrhea 10255776 R19.7 after discussion it appears this very well may be a E Coli toxin gastroente ritis we will re culture and start cipro 500 bid and probiotics Food-borne gastroenteritis 059362891 A05.9 [id number] Kev Altamirano [facility] Internal Medicine [address] [facility],[place], [place] 7 09/02/2022 13:19:54 09/02/2022 16:20:03 Diarrhea 67214474 R19.7 did good with initial cipro tx but have now returned ?c diff, ?return of poss E coli? side effect of ciprowe will have her rechk all cultures [id number] [facility] Internal Medicine [address] [facility] [place], [place] [facility] [place] 7 11/16/2022 13:50:51 11/16/2022 15:32:36 Diarrhea 52734679 A07.8 agreed to gastro PCR panel and C diff Abdominal pain 63275992 R10.0 [address] set with [address] CT abdomen + pelvis Fever with chills 263047 006 R50.84 continue with APAP as directed Clostridiu m difficile colitis 601622057 A04.72 will set up with STAT CTrepeat C Diff culturelab work Pyrexia of unknown origin 2986040 R50.84 most likely related to possible colitis of either infectious or inflammato ry naturehas colonoscop y was scheduled in [facility] have them move that up if the C diff is still negative [id number] Kev Altamirano [facility] Internal Medicine [address] [facility], [place] [address] 02/03/2023 14:38:57 02/03/2023 15:53:32 Clostridium difficile colitis 896972026 A04.72 resolved with vanco Diarrhea 74684514 A07.8 resolved will Essential hypertension 34435837 I10 will rechk in 6 mo Constipation 62203143 K5 9.00 will hold the lactulose for now if after 2 days she has no bm she can takealso metamucil she will start as wellcont her water drinking Systolic murmur 16735008 R01.1 Impaired f asting glycemia 763197039 R73.01 will need to have this a1c done next lab [id number] Kev Altamirano [facility] Internal Medicine [address] [facility],[place] [address] 04/26/2023 13:48:27 04/26/2023 14:55:12 Active or passive immunization 062707693 Z23 patient advised she is due for flu shot Adult [facility] th examination 552828016 Z00.01 will be seeing cardiac surg for TAVR has severe Essential hypertension 39361462 I10 will rechk in 6 mo Hypokalemia 13949262 E87 .6 stable Clostridiu m difficile colitis 888793146 A04.72 resolved with vanco Critical s tenosis of aortic valve 540797727 I35.0 setting up for TAVR [id number] Kev Altamirano [facility] Internal Medicine [address] [facility], [place] [address] 06/09/2023 08:30:18 06/09/2023 16:41:48 Critical stenosis of aortic valve 396073714 I35.0 setting up for aortic valve replacemen t open surgeryshe will set up a follow up after she gets surg date Essential hypertension 25807600 I10 home bps have been stable no change in meds [id number] Kev Altamirano [facility] Internal Medicine [address] [facility] [address],[place] [address] 09/08/2023 14:43:19 09/08/2023 15:47:27 Critical stenosis of aortic valve 102913463 I35.0 successful replacemen t followed by pleural effus and collapsed lungwill be followed by a cardiology Essential hypertension 69087487 I10 home bps have been stable no change in meds Depression screening 171 452088 Z13.31 she is post op and this is not appropriat e at this time [id number] Kev Altamirano [facility] Internal Medicine [address] [facility] [address],[place] [address] 09/22/2023 10:21:01 09/22/2023 11:13:37 Essential hypertension 01638895 I10 home bps have been stable no change in meds [id number] Kev Altamirano [facility] Internal Medicine [address] [facility] [address],[place] [address] 10/22/2023 13:35:15 10/22/2023 14:25:19 Essential hypertension 65604363 I10 home bps have been stable no change in meds Severe aor tic valve stenosis 158960593 I35.0 repair successful well healed scarchest no longer sore or feeling heavy Hypokalemia 91808581 E87 .6 stable on kcl but will need to rechk now that she is off furosemide [id number] Kev Altamirano [facility] Internal Medicine [address] [facility] [address],[place] [address] 03/08/2024 09:49:25 03/08/2024 10:45:59 Impaired fasting glycemia 954421359 R73.01 will need to have this a1c done next lab Essential hypertension 78939091 I10 home bps have been stable no change in meds Eczema of external auditory canal 84513350 H60.549 we will refill Health Concerns Section Related Observation LastModified by Organization Lori rick LastModified Time None Recorded Concern Status LastModified by Organization Details LastModified Time None Recorded Advance Directives Directive None Recorded Payers Encounter Date Sequence Insurance Name Policy Number Policy Mata Covered Member ID Mata Member ID Guarantor Name 06/09/2023 1 [place] [facility] [id number] Monie F Anusiewicz [id number] Monie Anusiewicz 09/08/2023 1 [place] [facility] [id number] Monie F Anusiewicz [id number] Monie Anusiewicz 09/22/2023 1 [place] [facility] [id number] Monie F Anusiewicz [id number] Monie Anusiewicz 10/22/2023 1 [place] [facility] [id number] Monie F Anusiewicz [id number] Monie Anusiewicz 03/08/2024 1 [place] [facility] [id number] Monie F Anusiewicz [id number] Monie Anusiewicz Notes Date Note Type Note Provider Name and Address Organization Details Recorded Time 4 text/htm l Care Management - HypertensionReported bypatient.Self Care:not under emotional stress Severity:symptoms are improving; does not interfere with daily activities Associated Symptoms:no dizziness; no lightheadedness; no chest pain; no shortness of breath; no palpitations; no edema; no calf muscle cramps; no blurred vision; no confusion; no headaches; no fatigue patient is evaluated via tele/video assessment per patient consentduring current pandemic she has been doing ok for most parthad been eval by the cardiovasc surgeonrelates dr reyes felt that she needs open heart surg and no TAVRand that she has been quite nervous about thistold her she needs this done no date yet waiting to hear from surgeon home bp has been good Kev Altamirano, DO [address] [facility], [place], [address], [facility] [place] [facility] 06/09/2023 14:44:49 4 text/htm l her since surgery for aortic valvespent 15 days in hospsurg successfulstil l has a partially collapsed lung but she is ding incentive spirometrybp has been better (was too low) and lisinopril was stoppedsurg was complicated by pleural effus Kev Altamirano, DO [address] [place], [address], [facility] [place] [facility] Medicine 09/08/2023 15:41:05 4 text/htm l Care Management - HypertensionReported bypatient.Self Care:not under emotional stress Severity:symptoms are improving; does not interfere with daily activities Associated Symptoms:no dizziness; no lightheadedness; no chest pain; no shortness of breath; no palpitations; no edema; no calf muscle cramps; no blurred vision; no confusion; no headaches; no fatigue here for rechkand is doing okmetoprolol is being stopped due to bradycardia weaning downbp will be followedplaced on rosuvastatin 5feels better on lower metoprololno cp no sobnow taking extra lisnopril Kev Altamirano, DO [address] [place], [address], [facility] [place] Internal Medicine 10/22/2023 14:35:45 4 text/htm l Care Management - DiabetesReported bypatient.Self Care:seeing eye doctor yearly for dilated eye exam; checking feet regularly; normal range of home blood sugars (in the low 100s); no side effects from medications Associated Symptoms:symptoms are usually well controlled; no fatigue; no dizziness; no excessive sweating; no headaches; no confusion; no increased thirst; no increased appetite; no increased urination; no blurred vision; no numbness of feet; no calluses on feetCare Management - HypertensionReported bypatient.Self Care:not under emotional stress Severity:symptoms are improving; does not interfere with daily activities Associated Symptoms:no dizziness; no lightheadedness; no chest pain; no shortness of breath; no palpitations; no edema; no calf muscle cramps; no blurred vision; no confusion; no headaches; no fatigue here for rechk and is doing well overallrelates injured herself with a leaf blower ended up with a black eyeeating and sleeping okexercising daily 30min active outsidesleep is goodno issue with bowels Kev Altamirano, DO [address] [facility], [place], [address], [facility] 03/08/2024 10:20:13 OBGyn Episode No OBEpisode recorded.
[2024-08-25 11:06] LABS: MANUAL DIFF FLAG NO
[2024-08-25 11:30] LABS: Basophils Percent Auto 0.6 % (0-2); Eosinophils Absolute Auto 0.2 X10*3/uL (0.0-0.4); Eosinophils Percent Auto 2.2 % (0-4); Hematocrit 35.8 % (37.0-47.0); Hemoglobin 11.6 g/dl (12.0-16.0); Imm Gran Abs Auto 0.02 X10*3/uL (0.00-0.03); Imm Gran Pct Auto 0.3 % (0.0-0.4); Lymphocytes Absolute Auto 1.6 X10*3/uL (1.2-4.9); Lymphocytes Percent Auto 23.4 % (20-40); Mean Corpuscular HGB Conc 32.4 g/dl (31.0-35.0); Mean Corpuscular Hemoglobin 32.2 pg (27.0-33.0); Mean Corpuscular Volume 99.4 fL (80.0-98.0); Mean Platelet Volume 9.5 fL (9.4-12.3); Monocytes Absolute Auto 0.6 X10*3/uL (0.1-1.2); Neutrophils Absolute Auto 4.3 x10*3/uL (2.0-8.3); Neutrophils Percent Auto 64.5 % (45-73); Platelet Count 239 X10*3/uL (160-400); Red Cell Distribution Width 12.5 % (11.0-16.0); White Blood Count 6.7 X10*3/uL (4.8-10.8)
[2024-08-25 11:42] LABS: Alanine Aminotransferase 10 U/L (0-31); Albumin Level 3.8 g/dL (3.5-5.0); Anion Gap 10 (12-20); Aspartate Amino Transferase 21 U/L (5-31); Bilirubin Total 0.6 mg/dL (0.0-1.0); Blood Urea Nitrogen 20 mg/dL (9-16); Calcium 9.1 mg/dL (8.4-10.2); Carbon Dioxide 30 mmol/L (22-29); Chloride 105 mmol/L (96-108); Estimated Glomerular Filt Rate > 60; Glucose Random 87 mg/dL (60-115); Potassium 3.7 mmol/L (3.3-5.1); Sodium 141 mmol/L (135-145); Total Protein 7.2 g/dL (6.5-8.0)
[2024-08-25 11:50] LABS: Estimated Average Glucose 111 mg/dL; Hemoglobin A1C 169.2819 umol/L; Hemoglobin A1c % 5.5 % (<6.0); Total Hemoglobin (HGBA1C) 4649.8005 umol/L
[2024-08-25 11:52] LABS: Vitamin D 25-OH Total 34.1 ng/mL (>30)
[2024-08-25 19:39] LABS: Alkaline Phosphatase 101 U/L (39-117)
== END 2024-08-25 09:14 | disposition home or self-care (01) ==
LOC: HO.WFDLDS 09:13
PROVIDERS: Visit Provider Internal Medicine
DX: R73.01 Impaired fasting glucose (principal); I10 Essential (primary) hypertension
CPT/HCPCS: 36415; 80053; 82306; 83036; 85025

== ENCOUNTER → 2024-09-07 07:39 | Outpatient (REF) | payer BC, SELFPAY ==
--- NOTE | 2024-09-07 07:42 | CA_ITS ---
Transthoracic Echocardiogram Patient (Last, First, Middle): Monie Lake F Gender: Female Date of : 1950 Age: 74 Procedure Date: 09/07/2024 Procedure Type: Transthoracic Echocardiogram Location: OP Height: 162.56 cm Weight: 71.67 kg BSA: 1.77 m2 Heart Rate: bpm BP: 148 / 70 mmHg Launch Steward: TO Referring MD: Kain Sheikh MD Symptoms: Z95.2 - Presence of prosthetic heart valve Study Quality: Fair/Contrast Conclusions: - Normal left ventricular size and systolic function. The visually estimated ejection fraction is between 55-60%. - E/E prime ratio is between 8 and 15 consistent with indeterminate filling pressures. - Normal right ventricular cavity size. There is low normal right ventricular systolic function. - A bioprosthetic aortic valve is present. The mean gradient is 15 mmHg. There is no aortic valve regurgitation. Findings Procedure Information Contrast agent, definity, is being given per protocol without apparent complications. Left Ventricle Normal left ventricular size and systolic function. The visually estimated ejection fraction is between 55-60%. There is no evidence of regional wall motion abnormalities. Abnormal diastolic function is noted. Spectral Doppler is indicative of a pseudonormal filling pattern. E/E prime ratio is between 8 and 15 consistent with indeterminate filling pressures. Right Ventricle Normal right ventricular cavity size. There is low normal right ventricular systolic function. Atria The left atrium is normal in size. The right atrium is normal in size. Aortic Valve A bioprosthetic aortic valve is present. The mean gradient is 15 mmHg. There is no aortic valve regurgitation. Mitral Valve The mitral valve appears normal. There is no mitral valve regurgitation. There is no mitral valve stenosis. Pulmonic Valve The pulmonic valve is likely normal. Tricuspid Valve Normal tricuspid valve structure. There is no tricuspid valve regurgitation. The right ventricular systolic pressure is 38 mmHg. Normal right atrial pressure. Mild pulmonary hypertension is present. Great Vessels The visualized portions of the pulmonary artery and branches are normal. Venous The inferior vena cava is normal in size and collapses greater than 50% with inspiration. Pericardium/Pleural There is no evidence of pericardial effusion. Prior Study Comparison No significant change compared to prior study dated: 10/01/2023. Measurements 2D Linear Measurements IVSd: 0.98 0.6-0.9/0.6-1.0 cm LVIDd: 4.37 3.9-5.3/4.2-5.9 cm LVIDd Index: 2.47 2.4-3.2/2.2-3.1 cm/m2 LVIDs: 2.62 2.0-3.6 cm LVPWd: 0.78 0.7-1.1 cm LA Diam: 3.30 2.7-3.8/3.0-4.0 cm LAIDs Index: 1.86 1.5-2.3 cm/m2 LV Mass: 153.59 67-162/88-224 g LV Mass Index: 86.77 43-95/49-115 g/m2 LVOT Diam: 2.10 3.0+(-)1.3 cm 2D Systolic Function EF 4C: 49.80 >55% EF 2C: 58.20 >55% EF BiP: 54.80 >55% Mitral Valve MV Pk E: 0.78 MV PK A: 0.63 MV Decel Time: 212.00 E/A: 1.20 E'Lateral: 10.70 E'Medial: 5.55 E/E' Med: 14.00 E/E' Lat: 7.30 PHT: 62.00 MVA PHT: 3.55 Decel [place]: 3.65 Aortic Valve AoV Pk Demetrio: 2.51 AoV Mn Demetrio: 1.82 AoV VTI: 0.56 AoV Pk Grad: 25.00 Aov Mn Grad: 15.00 VIKKI Cont.VTI: 1.42 LVOT LVOT Pk Demetrio: 0.95 LVOT Mn Demetrio: 0.70 LVOT VTI: 0.23 LVOT Pk Grad: 4.00 LVOT Mn Grad: 2.00 LVOT Diam: 2.10 LVOT Area: 3.46 Diastolic Function MV Pk E: 0.78 MV Pk A: 0.63 E/A: 1.20 E'Medial: 5.55 E/E' Med: 14.00 E' Laterial: 10.70 E/E' Lat: 7.30 Right Ventricle TAPSE (mm): 14.90 TVS' Demetrio: 8.92 Tricuspid Valve TR Pk Demetrio: 2.96 TR Pk Grad: 35.00 RA Press: 3.00 RVSP: 38.00 Great Vessels Aorta Ao Asc: 3.70 2.1-3.4 cm Updated in Other Vendor System with Status of Final Wade Carlin MD electronically signed on 09/08/2024 9:30:37 PM with status of Final
--- OUTSIDE RECORDS SUMMARY | 2024-09-07 07:42 | XMS_ITS | Continuity of Care Document ---
Author Organization [place] - [facility], [facility] Address [address] [place] [address] [place] [address] Assessment No assessment recorded. Plan of Treatment Reminders Order Date Submit Date Provider Last Modified By Organization Details Last Modified Time Details Appointments FOLLOW UP 15 2024 10:30A M DR ALTAMIRANO Not available Not available Not available Lab HbA1c (hemoglo bin A1c), blood 2024 025 [facility], [address] [place] [address], [id number], 09/04/2024 13:56:13 CMP, serum or plasma 2024 025 [facility], [address] [place] [address], [id number], 09/04/2024 13:56:13 CBC 2024 025 [facility], [address] [place] [address], [id number], 09/04/2024 13:56:13 vitamin D, 25-hydro xy, total, serum 2024 025 [facility], [address] [place] [address], [id number], 09/04/2024 13:56:13 lipid panel, blood 2024 025 [facility], [address] [place] [address], [id number], 09/04/2024 13:56:13 Referral None recorded . Procedures None recorded . Surgeries None recorded . Imaging None recorded . Medication Orders None recorded . Patient TargetsNo targets recorded. Patient InstructionsNo instructions recorded. Reason for Referral None Reported. Problems Name Problem SNOMED Code Status Onset Date Resolution Date Notes Provider Name and Address Organization Details Recorded Time Eczema 09176325 Active 2018 Not Available [facility] 13:48:11 Atrophic vaginiti s 65831592 Active 2018 Not Available [facility] 13:48:11 COVID-19 847307885 Active 2020 Not Available [facility] 13:48:11 Eczema of external auditory canal 23257611 Active 2021 Kev Altamirano DO [address] [place] [address], [id number], [facility] 2 09:20:24 Diarrhea 81211124 Active 2021 Kev Altamirano DO [address] [place] [address], [address], [facility] 2 11:13:50 Right flank pain 783358646 Active 2022 CAROLINA ONTIVEROS [address] [place] [address], [address], [facility] 3 12:27:54 Food-bor ne gastroen teritis 623628808 Active 2022 Kev Altamirano DO [address] [place] [address], [address], [facility] 3 15:04:13 Clostrid ium difficil e colitis 813426064 Active 2022 Kev Altamirano DO [address] [place] [address], [address], [facility] 3 10:26:46 Abdomina l pain 62281651 Active 2022 CAROLINA ONTIVEROS [address] [place] [address], [address], [facility] 3 14:05:42 Fever with chills 206425071 Active 2022 CAROLINA ONTIVEROS [address] [place] [address], [address], [facility] 3 14:03:36 Pyrexia of unknown origin 4116199 Active 2022 CAROLINA ONTIVEROS [address] [place] [address], [address], [facility] 3 14:08:52 Hypokale yasmine 28551373 Active 2022 CAROLINA ONTIVEROS [address] [place] [address], [address], [facility] 3 13:23:51 Constipa tion 60702397 Active 2022 Kev Altamirano, [address] [place] [address], [address], [facility] 3 22:51:00 Systolic murmur 75554966 Active 2022 Kev Altamirano, [address] [place] [address], [address], [facility] 3 15:29:29 Severe aortic valve stenosis 769486965 Completed 202310/22/2023 Kev Altamirano DO [address] [place] [address], [address], [facility] 4 14:07:51 Critical stenosis of aortic valve 919843062 Active 2022 Kev Altamirano DO [address] [place] [address], [address], [facility] 3 14:23:02 Drug-ind uced hypokale yasmine 942230058 Active 2023 Kev Altamirano DO [address] [place] [address], [address], [facility] 4 21:25:01 Severe aortic valve stenosis 346826246 Active 2023 Kev Altamirano, DO [address] [place] [address], [address], [facility] 4 14:07:51 Osteopen ia 063576520 Active 2017 Not Available [facility] 13:48:11 Family history of diabetes mellitus 506078101 Active 2017 Not Available [facility] 13:48:11 Impaired fasting glycemia 951198805 Active 2017 Not Available [facility] 13:48:11 History of hysterec ghulam 933936579 Active 2017 Not Available [facility] 13:48:11 [facility] l hyperten ayanna 55012525 Active 2017 Not Available [facility] 13:48:11 Osteoart 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 Procedures Surgical History Date Name Laterality Status Provider Name and Address Organization Details Recorded Time 09/18/19 16 colonoscopy completed Divya Velasco NP, S [address] [place] [address], [address], [facility] 06/07/2018 14:08:52 total abdominal hysterectomy completed Divya Velasco NP, S [address] [place] [address], [address], [facility] 06/07/2018 14:02:55 Imaging Results None recorded. Procedure Notes None recorded. Medical Equipment None Reported. Allergies Allergen ID Allergen Name Allergen Category Reaction Reaction Severity Criticality Documentation Date Start Date Code Code System Note Provider Name and Address Organization Details Recorded Time 155 penicilli n V Not available Not available Not available Not available 07/09/2017 7984 RxNorm Latanya bay [facility] 8 15:27:35 156 bee pollen environme nt,medica tion Not available Not available Not available 07/09/2017 92019 7 RxNorm Latanya bay [facility] 8 15:29:26 Medications Name Sig Start Date [...] Relief 50 mcg/actuati on nasal spray,suspe nsion [place] 1 spray every day by intranasa l route for 30 days. 08/12 completed Not Available Not Available Not Available Shingrix (PF) 50 mcg/0.5 mL intramuscul ar suspension, kit 02/10 completed Not Available Not Available Not Available Fluzone High-Dose 0202-8601 (PF) 180 mcg/0.5 mL intramuscul ar syringe 08/30 completed Not Available Not Available Not Available Fluad 2018-20 65yr up(PF)45 mcg(15 mcgx3)/0.5 mL intramuscul ar syringe 02/10 completed Not Available Not Available Not Available Flowflex COVID-19 Antigen Home Test kit 08/12 completed Not Available Not Available Not Available Vitals Date Recorded Body height Body mass index (BMI) Body weight Systolic blood pressure Diastolic blood pressure Provider Name and Address Organization Details Last Updated DateTime 09/04/2024 161.29 cm 27.4 kg/m2 24149 g 130 mm[Hg] 68 mm[Hg] [facility] 13:26:24 Social History Question Answer Notes LastModified by Organizat ion Details LastModified Time Tobacco Smoking Status Never Smoker Not Available [facility] 03/12/2020 03:36:23 What Was The Date Of Your Most Recent Tobacco Screening? 09/04/2024 [email or web address] Information not available 09/04/2024 Do You Or Have You Ever Used Any Other Forms Of Tobacco Or Nicotine? No Information not available 04/26/2023 Sex: Unknown Functional Status None recorded. Mental Status None recorded. Family History Relationship Description Onset Age of this Age Resolved Age Notes LastModified by Organization Details LastModified Time Mother Diabetes mellitus htn [email or web address] Not available 2018 14:05:38 Father Hypertensive disorder [email or web address] Not available 2018 14:05:57 Medical History No medical history recorded. Gynecological History Statement/Question Response LMP Unknown Obstetrics History GPAL:G 0 P 0 0 0 0 Immunizations Vaccine Type Date Status Note Provider Nam e and Address Organization Details Recorded Time Influenza, split virus, quadrivalent, preservative 02/14/20 21 completed CAROLINA ONTIVEROS [address] [place] [address], [address], [facility] 02/14/2021 13:41:40 Tdap 02/22/20 21 completed Kev Altamirano DO [address] [place] [address], [address], [facility] 02/23/2021 08:52:18 COVID-19, mRNA, LNP-S, PF, 30 mcg/0.3 mL dose 08/20/19 21 completed Kev Altamirano DO [address] [place] [address], [address], [facility] 03/04/2021 09:00:50 Influenza, split virus, quadrivalent, preservative 03/06/20 22 completed Kev Altamirano DO [address] [place] [address], [address], [facility] 03/09/2022 10:26:53 Influenza, split virus, quadrivalent, preservative 03/02/20 18 completed [place]ki bay [facility] 08/30/2018 08:57:37 Pneumococcal conjugate PCV 13 03/02/20 [address] [facility] 08/30/2018 08:57:37 zoster live 02/14/20 [address] [place] [address] [facility] 08/30/2018 08:57:37 zoster live 10/13/19 19 completed Kev Altamirano DO [address] [place], [address], [facility] 10/13/2018 08:38:09 zoster live 12/23/19 19 completed Latanya bay [facility] 12/23/2018 08:17:04 Influenza, split virus, quadrivalent, preservative 12/23/19 19 completed Latanya bay [facility] 12/23/2018 08:17:14 pneumococcal polysaccharide PPV23 05/15/19 20 completed Latanya bay [facility] 05/16/2019 08:17:36 COVID-19, mRNA, LNP-S, PF, 30 mcg/0.3 mL dose 07/30/19 21 completed Kev Altamirano DO [address] [place], [address], [facility] 08/12/2020 10:17:22 Past Encounters Encounter ID Performer Location Encounter Start Date Encounter Closed Date Diagnosis/Indication Diagnosis SNOMED-CT Code Diagnosis ICD10 Code Diagnosis Note [id number] Kev Altamirano DO [facility] [address],[place] [address] 09/04/2024 13:18:37 09/04/2024 13:57:47 Active or passive immunization 846783261 Z23 patient advised she is due for flu shot Adult heal th examination 187858085 Z00.00 will be seeing cardiac surg for TAVR has severe due for echo this week Essential hypertension 43047279 I10 home bps have been stable no change in meds Hypokalemia 99522312 E87 .6 stable on kcl but will need to rechk now that she is off furosemide Impaired f asting glycemia 607229242 R73.01 will need to have this a1c done next lab Health Concerns Section Related Observation LastModified by Organization Detai ls LastModified Time None Recorded Concern Status LastModified by Organization Details LastModified Time None Recorded Payers Encounter Date Sequence Insurance Name Policy Number Policy Mata Covered Member ID Mata Member ID Guarantor Name 09/04/2024 1 [facility]: [facility] [id number] Monie Lake [id number] Monie [place] Notes Date Note Type Note Provider Name and Address Organization Details Recorded Time 5 text/htm l Annual WellnessReported bypatient.Diet and Nutrition:healthy diet Fracture Risk:no history of fractures; no recent explained fracture; no sudden unexplained fractures; no previous musculoskeletal injuries Physical Activity:exercises on a regular basis; recent increase in physical activity; good physical condition Additional Lifestyle Factors:no tobacco use; no alcohol intake; stopped drinking alcohol Depression Risk:never feels sad, empty, or tearful; no loss of interest in activities; no significant changes in weight; no sleep disturbances or insomnia; no agitation; no loss of energy; no feelings of worthlessness or guilt; no thoughts of suicide; no history of depression; no history of mood disorders Hearing:no loss of hearing Vision:no vision problemsCare Management - DiabetesReported bypatient.Self Care:seeing eye doctor [...] vision; no confusion; no headaches; no fatigue Kev Altamirano DO [address] [place], [address], [facility] 09/04/2024 13:50:29 OBGyn Episode No OBEpisode recorded.
--- OUTSIDE RECORDS SUMMARY | 2024-09-07 07:42 | XMS_ITS | Data Portability ---
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) [facility] MODERATE MUST MEET 2 OUT OF [...] COVERED Not available 10/22/2023 14:07:16 03/08/2024 03/08/2024 [address] [place] [address] (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) [facility] MODERATE MUST MEET 2 OUT OF [...] Last Modified Time Details Appointments FOLLOW UP 2024 10:30A M DR ALTAMIRANO Not available Not available Not available Lab HbA1c (hemoglob in A1c), blood 2024 025 [facility], [address] [place] [address], [id number], 09/04/2024 13:56:13 CMP, serum or plasma 2024 025 [facility], [address] [place] [address], [id number], 09/04/2024 13:56:13 CBC 2024 025 [facility], [address] [place] [address], [id number], 09/04/2024 13:56:13 vitamin D, 25-hydrox y, total, serum 2024 025 [facility], [address] [place] [address], [id number], 09/04/2024 13:56:13 lipid panel, blood 2024 025 [facility], [address] [place] [address], [id number], 09/04/2024 13:56:13 HbA1c (hemoglob in A1c), blood 2023 024 [facility], [address] [place] [address], [id number], 08/28/2024 16:08:36 CMP, serum or plasma 2023 024 [facility], [address] [place] [address], [address], 03/08/2024 10:20:28 CBC 2023 024 [facility], [address] [place] [address], [id number], 03/08/2024 10:20:28 vitamin D, 25-hydrox y, total, serum 2023 024 [facility], [address] [place] [address], [address], 03/08/2024 10:20:28 CBC 2023 024 [facility], [address] [place] [address], [id number], 09/16/2023 11:08:29 ferritin, serum or plasma 2023 024 [facility], [address] [place] [address], [address], 09/08/2023 15:40:01 folate, serum 2023 024 [facility], [address] [place] [address], [id number], 09/08/2023 15:40:01 iron + total iron-bind ing capacity (TIBC), serum 2023 024 [facility], [address] [place] [address], [address], 09/08/2023 15:40:01 retic count, blood 2023 024 [facility], [address] [place] [address], [address], 09/08/2023 15:40:01 vitamin B12, serum 2023 024 [facility], [address] [place] [address], [address], 09/08/2023 15:40:01 BMP, serum or plasma 2023 024 [facility], [address] [place] [address], [id number], 09/08/2023 15:40:00 CBC 2023 024 [facility], [address] [place] [address], [address], 09/16/2023 11:08:29 Referral None recorded. Procedures None recorded. Surgeries None recorded. Imaging None recorded. Medication Orders fluocinol one acetonide oil 0.01 % ear drops 2023 024 [id number], [address], [place], [phone], 03/08/2024 10:16:56 lisinopri l 10 mg tablet 2023 [facility], [facility], [place], [address], 03/27/2024 15:07:41 Patient TargetsNo targets recorded. Patient Instructions Encounter Date Encounter Id Patient Instructions Last Modified By Organization Details Last Modified Time 09/08/2023 [id number] high blood pressure: care instructions Not available 09/08/2023 15:27:59 learning about high blood pressure Not available 09/08/2023 15:27:59 09/22/2023 [id number] high blood pressure: care instructions Not available 09/22/2023 10:53:18 learning about high blood pressure Not available 09/22/2023 10:53:18 10/22/2023 [id number] hypokalemia: car e instructions Not available 10/22/2023 14:09:00 Reason for Referral None Reported. Results Created Date Observation Date Name Description Value Unit Range Abnormal Flag Note LastModifiedBy Organization Detail LastModifiedTime 02/09/2002/09/2024 MAMMO , scree evelio, digit al, bilat eral No observ ation record ed. [facility] - Callback Orders Only [address] [place], [address], 03/08/2024 10:08:49 Result Notes None recorded. 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 2 09:20:24 Diarrhea 68353416 Active 2021 Kev Altamirano, DO [address] [place] [address], [address], [facility] 2 11:13:50 Right flank pain 855533897 Active 2022 CAROLINA ONTIVEROS [address] [place] [address], [address], [facility] 3 12:27:54 Food-bor ne gastroen teritis 795226684 Active 2022 Kev Altamirano DO [address] [place] [address], [address], [facility] 3 15:04:13 Clostrid ium difficil e colitis 273127250 Active 2022 Kev Altamirano DO [address] [place] [address], [address], [facility] 3 10:26:46 Abdomina l pain 13864698 Active 2022 CAROLINA ONTIVEROS [address] [place] [address], [address], [facility] 3 14:05:42 Fever with chills 131361451 Active 2022 CAROLINA ONTIVEROS [address] [place] [address], [address], [facility] 3 14:03:36 Pyrexia of unknown origin 2669859 Active 2022 CAROLINA ONTIVEROS [address] [place] [address], [address], [facility] 3 14:08:52 Hypokale yasmine 24247166 Active 2022 CAROLINA ONTIVEROS [address] [place] [address], [address], [facility] 3 13:23:51 Constipa tion 35402895 Active 2022 Kev JuniorBuster Altamirano, DO [address] [place] [address], [address], [facility] 3 22:51:00 Systolic murmur 23916554 Active 2022 Kev Altamirano, DO [address] [place] [address], [address], [facility] 3 15:29:29 Severe aortic valve stenosis 044396420 Completed 202310/22/2023 Kev Altamirano, DO [address] [place] [address], [address], [facility] 4 14:07:51 Critical stenosis of aortic valve 062025920 Active 2022 Kev Altamirano, DO [address] [place] [address], [address], [facility] 3 14:23:02 Drug-ind uced hypokale yasmine 076103933 Active 2023 Kev Altamirano, DO [address] [place] [address], [address], [facility] 4 21:25:01 Severe aortic valve stenosis 392878575 Active 2023 Kev Altamirano, DO [address] [place] [address], [address], [facility] 4 14:07:51 Osteopen ia 173278566 Active 2017 Not Available [facility] 13:48:11 Family history of diabetes mellitus 777947976 Active 2017 Not Available [facility] 13:48:11 Impaired fasting glycemia 801537322 Active 2017 Not Available [facility] 13:48:11 History of hysterec ghulam 710483080 Active 2017 Not Available [facility] 13:48:11 Essentia l hyperten ayanna 03765669 Active 2017 Not Available [facility] 13:48:11 Osteoart hritis 170591342 Active 2017 C spine Not Available [facility] 13:48:11 Problem Notes None recorded. Procedures Surgical History Date Name Laterality Status Provider Name and Address Organization Details Recorded Time 09/18/19 16 colonoscopy completed Divya Velasco NP, S [address] [place] [address], [address], [facility] 06/07/2018 14:08:52 total abdominal hysterectomy completed Divya Velasco NP, S [address] [place] [address], [address], [facility] 06/07/2018 14:02:55 Imaging Results Imaging Date Name Status LastModified by Organiz ation Details LastModified Time 02/09/2024 MAMMO, screening, digital, bilateral completed [facility] - Callback Orders Only [address] [facility], [place], [address], 03/08/2024 10:08:49 Procedure Notes None recorded. Medical Equipment None Reported. Allergies Allergen ID Allergen Name Allergen Category Reaction Reaction Severity Criticality Documentation Date Start Date Code Code System Note Provider Name and Address Organization Details Recorded Time 155 penicilli n V Not available Not available Not available Not available 07/09/2017 7984 RxNorm Latanya bay [facility] 8 15:27:35 156 bee pollen environme nt,medica tion Not available Not available Not available 07/09/2017 56189 7 RxNorm [facility] 8 15:29:26 Medications Name Sig Start Date [...] Relief 50 mcg/actuati on nasal spray,suspe nsion [place] 1 spray every day by intranasa l route for 30 days. 08/12 completed Not Available Not Available Not Available Shingrix (PF) 50 mcg/0.5 mL intramuscul ar suspension, kit 02/10 completed Not Available Not Available Not Available Fluzone High-Dose 7007-2664 (PF) 180 mcg/0.5 mL intramuscul ar syringe [...] Updated DateTime 4 161.29 cm 26.2 kg/m2 79495.8 6 g 88 /min 18 /min 97 % 97 % 142 mm[Hg] 82 mm[Hg] [facility] 4 15:12:18 Date Recorded Body height Body mass index (BMI) Body weight Heart rate Respiratory rate Oxygen saturation Oxygen saturation in Arterial blood by Pulse oximetry Body temperature Systolic blood pressure Diastolic blood pressure Provider Name and Address Organization Details Last Updated DateTime 4 161.29 cm 25 kg/m2 83110.4 3 g 64 /min 16 /min 96 % 96 % 98.8 [degF] 162 mm[Hg] 90 mm[Hg] [facility] 4 10:30:20 Date Recorded Body height Body mass index (BMI) Body weight Heart rate Oxygen saturation Oxygen saturation in Arterial blood by Pulse oximetry Systolic blood pressure Diastolic blood pressure Provider Name and Address Organization Details Last Updated DateTime 4 161.29 cm 26.9 kg/m2 59071.0 2 g 66 /min 99 % 99 % 158 mm[Hg] 84 mm[Hg] Oksana Moncada [facility] 4 13:43:31 Date Recorded Body height Body mass index (BMI) Body weight Heart rate Oxygen saturation Oxygen saturation in Arterial blood by Pulse oximetry Systolic blood pressure Diastolic blood pressure Provider Name and Address Organization Details Last Updated DateTime 4 161.29 cm 27.4 kg/m2 06862 g 88 /min 98 % 98 % 126 mm[Hg] 70 mm[Hg] Kev Altamirano, DO [address] [place], [address], [facility] 4 10:06:10 Date Recorded Body height Body mass index (BMI) Body weight Systolic blood pressure Diastolic blood pressure Provider Name and Address Organization Details Last Updated DateTime 09/04/2024 161.29 cm 27.4 kg/m2 33491 g 130 mm[Hg] 68 mm[Hg] Sheryl Kiser [facility] 5 13:26:24 Social History Question Answer Notes LastModified by Organizat ion Details LastModified Time Tobacco Smoking Status Never Smoker Not Available [facility] 03/12/2020 03:36:23 What Was The Date Of Your Most Recent Tobacco Screening? 09/04/2024 [email or web address] Information not available 09/04/2024 Do You Or Have You Ever Used Any Other Forms Of Tobacco Or Nicotine? No [email or web address] Information not available 04/26/2023 Sex: Unknown Functional Status None recorded. Mental Status None recorded. Family History Relationship Description Onset Age of this Age Resolved Age Notes LastModified by Organization Details LastModified Time Mother Diabetes mellitus htn [email or web address] Not available 2018 14:05:38 Father Hypertensive disorder [email or web address] Not available 2018 14:05:57 Medical History No medical history recorded. Gynecological History Statement/Question Response LMP Unknown Obstetrics History GPAL:G 0 P 0 0 0 0 Immunizations Vaccine Type Date Status Note Provider Nam e and Address Organization Details Recorded Time Influenza, split virus, quadrivalent, preservative 02/14/20 21 completed CAROLINA ONTIVEROS [address] [place] [address], [address], [facility] 02/14/2021 13:41:40 Tdap 02/22/20 21 completed Kev Altamirano DO [address] [place] [address], [address], [facility] 02/23/2021 08:52:18 COVID-19, mRNA, LNP-S, PF, 30 mcg/0.3 mL dose 08/20/19 21 completed Kev Altamiarno DO [address] [place] [address], [address], [facility] 03/04/2021 09:00:50 Influenza, split virus, quadrivalent, preservative 03/06/20 22 completed Kev Altamirano DO [address] [place] [address], [address], [facility] 03/09/2022 10:26:53 Influenza, split virus, quadrivalent, preservative 03/02/20 18 completed Mikki bay [facility] 08/30/2018 08:57:37 Pneumococcal conjugate PCV 13 03/02/20 18 completed Mikki bay [facility] 08/30/2018 08:57:37 zoster live 02/14/20 14 completed Mikki bay [facility] 08/30/2018 08:57:37 zoster live 10/13/19 19 completed Kev Altamirano DO [address] [place] [address], [address] 10/13/2018 08:38:09 zoster live 12/23/19 19 completed Latanya bay [facility] 12/23/2018 08:17:04 Influenza, split virus, quadrivalent, preservative 12/23/19 19 completed Latanya bay [facility] 12/23/2018 08:17:14 pneumococcal polysaccharide PPV23 01/06/20 20 completed Latanya bay [facility] 05/16/2019 08:17:36 COVID-19, mRNA, LNP-S, PF, 30 mcg/0.3 mL dose 07/30/19 21 completed Kev Karen Altamirano [address], [address], [facility] 08/12/2020 10:17:22 Past Encounters Encounter ID Performer Location Encounter Start Date Encounter Closed Date Diagnosis/Indication Diagnosis SNOMED-CT Code Diagnosis ICD10 Code Diagnosis Note [id number] Kev Altamirano [facility] [address] [facility], [place] [address] 08/17/2017 08:46:38 08/17/2017 09:58:20 Adult health examination 935524318 Z00.00 Active or passive immunization 143518825 Z23 Eczema of external auditory canal 88266355 H60.549 [id number] Kev Altamirano [facility] [address] [facility],[place] [address] 02/07/2018 09:50:57 02/07/2018 10:58:07 Essential hypertension 55105305 I10 stable has 6 month f/u in a couple weeks Pneumonia 987432983 J18. 9 mucinex-dm fluids rest f/u as needed [id number] Kev Altamirano [facility] Internal [facility] [address] [facility],[place] [address] 02/25/2018 08:48:14 02/25/2018 09:25:33 Essential hypertension 86773319 I10 will rechk in 6 mo Impaired f asting glycemia 916598231 R73.01 stable going to [place] Pneumonia 203445204 J18. 9 resolved and is overall recup [id number] Kev Altamirano [facility] Internal [facility] [address] [facility] [facility], [place] [address] 06/07/2018 15:25:48 06/07/2018 16:15:28 Spasm of back muscles 867117562 M62.830 Essential hypertension 10286540 I10 stable [id number] Kev Altamirano [facility] [address],[place] [address] 08/30/2018 08:50:29 08/30/2018 09:38:08 Adult health examination 750482991 Z00.00 doing great Active or passive immunization 387541586 Z23 needs shingles Screening for cardiovascular system disease 340097775 Z13.6 also given a systolic heart murmur, will ask to get an echo if not already done will check old chart Screening for osteoporosis 989961662 Z13.820 done last year Screening mammography 24 776034 Z12.31 done mar Kev Altamirano [facility] [address] [facility] [address],[place] [address] 02/10/2019 09:20:01 02/10/2019 12:33:39 Hypertensive disorder 43797617 I10 reviewed lab in detail all wnl cholest excellent Essential hypertension 01414601 I10 will rechk in 6 mo Impaired f asting glycemia 934619895 R73.01 stable going to [place] in mar Kev Altamirano DO [facility] [address] [facility] [address] [address] 09/15/2019 09:26:08 09/15/2019 10:42:51 Acute pharyngitis 064863517 J02.9 [id number] Kev Altamirano [facility] [address] [facility] [address],[place] [address] 02/05/2020 16:04:27 02/05/2020 17:04:58 Adult health examination 402792338 Z00.00 doing great [id number] Kev Altamirano [facility] [address] [facility] [address],[place] [address] 08/12/2020 10:09:26 08/12/2020 11:00:19 Impaired fasting glycemia 987758565 R73.01 will need to have this a1c done Essential hypertension 49446117 I10 will rechk in 6 mo [id number] Kev Altamirano DO [facility] Medicine [address],[place] [address] 03/04/2021 08:52:06 03/04/2021 13:59:40 Active or passive immunization 049199060 Z23 needs shingles Adult heal th examination 314241599 Z00.00 doing great Postmenopa usal osteopenia 868524863 M85.80 [id number] Kev Altamirano [facility] [address] [facility],[place] [address] 09/03/2021 09:02:03 09/03/2021 14:48:50 Essential hypertension 17170874 I10 will rechk in 6 mo Impaired f asting glycemia 980149588 R73.01 will need to have this a1c done next lab Eczema of external auditory canal 03177907 H60.549 we will refill Osteopenia 377123695 M85 .80 noted in hip we will have her followed with this ' [id number] Kev Altamirano [facility] [address] [facility],[place] [address] 12/30/2021 09:31:47 12/30/2021 11:39:49 Diarrhea 80919675 R19.7 after long discussion she will try scrambled eggs and clear liquids and occ immodium today only and see if she can prevent a return of the watery diarrhea note she has not been on abx recently and has not been around anyone with similar episodes [id number] [facility] [address] [facility],[place] [address] 03/09/2022 10:19:37 03/09/2022 11:37:12 Active or passive immunization 912477733 Z23 patient advised she is due for flu shot Adult heal th examination 622104034 Z00.00 doing great Advance care planning 71 3410262 Z71.89 done [id number] Kev Altamirano [facility] [address] [facility] [address],[place] [address] 08/12/2022 14:08:08 08/12/2022 15:15:54 Diarrhea 19505759 R19.7 after discussion it appears this very well may be a E Coli toxin gastroente ritis we will re culture and start cipro 500 bid and probiotics Food-borne gastroenteritis 924719718 A05.9 [id number] Kev Altamirano, [facility] [address] [facility] [address] [address] 09/02/2022 13:19:54 09/02/2022 16:20:03 Diarrhea 05256394 R19.7 did good with initial cipro tx but have now returned ?c diff, ?return of poss E coli? side effect of ciprowe will have her rechk all cultures [id number] Kev Altamirano [facility] [address] [facility] [address] [address] 11/16/2022 13:50:51 11/16/2022 15:32:36 Diarrhea 10771055 A07.8 agreed to gastro PCR panel and C diff Abdominal pain 24578419 R10.0 will set with [address] CT abdomen + pelvis Fever with chills 457612 006 R50.84 continue with APAP as directed Clostridiu m difficile colitis 473985390 A04.72 will set up with STAT CTrepeat C Diff culturelab work Pyrexia of unknown origin 2610488 R50.84 most likely related to possible colitis of either infectious or inflammato ry naturehas colonoscop y was scheduled in [facility] have them move that up if the C diff is still negative [id number] Kev Altamirano [facility] Internal Medicine [address] [facility],[place] [address] 02/03/2023 14:38:57 02/03/2023 15:53:32 Clostridium difficile colitis 532996150 A04.72 resolved with vanco Diarrhea 22152569 A07.8 resolved will Essential hypertension 74275819 I10 will rechk in 6 mo Constipation 70078161 K5 9.00 will hold the lactulose for now if after 2 days she has no bm she can takealso metamucil she will start as wellcont her water drinking Systolic murmur 75888844 R01.1 Impaired f asting glycemia 808612677 R73.01 will need to have this a1c done next lab [id number] Kev Altamirano [facility] Internal Medicine [address] [facility] [address],[place] [address] 04/26/2023 13:48:27 04/26/2023 14:55:12 Active or passive immunization 079137011 Z23 patient advised she is due for flu shot Adult heal th examination 326290801 Z00.01 will be seeing cardiac surg for TAVR has severe Essential hypertension 70336870 I10 will rechk in 6 mo Hypokalemia 98941784 E87 .6 stable Clostridiu m difficile colitis 263232999 A04.72 resolved with vanco Critical s tenosis of aortic valve 201028080 I35.0 setting up for TAVR [id number] Kev Altamirano [facility] [address] [facility] [address],[place] [address] 06/09/2023 08:30:18 06/09/2023 16:41:48 Critical stenosis of aortic valve 234254443 I35.0 setting up for aortic valve replacemen t open surgeryshe will set up a follow up after she gets surg date Essential hypertension 59269545 I10 home bps have been stable no change in meds [id number] Kev Altamirano [facility] Medicine [address] [facility] [address],[place] [address] 09/08/2023 14:43:19 09/08/2023 15:47:27 Critical stenosis of aortic valve [id number] I35.0 successful replacemen t followed by pleural effus and collapsed lungwill be followed by a cardiology Essential hypertension [id number] I10 home bps have been stable no change in meds Depression screening 171 [id number] Z13.31 she is post op and this is not appropriat e at this time [id number] Kev Altamirano [facility] Internal [facility] [address],[place] [address] 09/22/2023 10:21:01 09/22/2023 11:13:37 Essential hypertension [id number] I10 home bps have been stable no change in meds [id number] Kev Altamirano [facility] Internal Medicine [address],[place] [address] 10/22/2023 13:35:15 10/22/2023 14:25:19 Essential hypertension [id number] I10 home bps have been stable no change in meds Severe aor tic valve stenosis [id number] I35.0 repair successful well healed scarchest no longer sore or feeling heavy Hypokalemia 55151236 E87 .6 stable on kcl but will need to rechk now that she is off furosemide [id number] Kev Altamirano [facility] Internal Medicine [address] [facility] [place] [address] 03/08/2024 09:49:25 03/08/2024 10:45:59 Impaired fasting glycemia [id number] R73.01 will need to have this a1c done next lab Essential hypertension 94675131 I10 home bps have been stable no change in meds Eczema of external auditory canal [id number] H60.549 we will refill [id number] Kev Altamirano [facility] Internal Medicine [address] [address] 09/04/2024 13:18:37 09/04/2024 13:57:47 Active or passive immunization [id number] Z23 patient advised she is due for flu shot Adult heal th examination [id number] Z00.00 will be seeing cardiac surg for TAVR has severe due for echo this week Essential hypertension 45252530 I10 home bps have been stable no change in meds Hypokalemia 83319039 E87 .6 stable on kcl but will need to rechk now that she is off furosemide Impaired f asting glycemia [id number] R73.01 will need to have this a1c done next lab Health Concerns Section Related Observation LastModified by Organization Detai ls LastModified Time None Recorded Concern Status LastModified by Organization Details LastModified Time None Recorded Advance Directives Directive None Recorded Payers Encounter Date Sequence Insurance Name Policy Number Policy Mata Covered Member ID Mata Member ID Guarantor Name 09/08/2023 1 [facility]: [facility] ([facility] [place] [id number] Monie Roxann Lake [id number] Monie Lake 09/22/2023 1 [facility]: [facility] [place] hereO [place] ([facility] [place]) [id number] Monie F Aleksandra [id number] Monie Anusiewicz 10/22/2023 1 [place] [facility] ([facility] [place] [id number] Monie F Loryusiewicz [id number] Monie Anusiewicz 03/08/2024 1 [place] [facility] ([facility] [place] Monie F Anusiewicz [id number] Monie Anusiewicz 09/04/2024 1 [place] [facility] ([facility] [place] [id number] Monie F Anusiewicz [id number] Monie Anusiewicz Notes Date Note Type Note Provider Name and Address Organization Details Recorded Time 4 text/htm l her since surgery for aortic valvespent 15 days in hospsurg successfulstil l has a partially collapsed lung but she is ding incentive spirometrybp has been better (was too low) and lisinopril was stoppedsurg was complicated by pleural effus Kev Altamirano DO [address] [place] [address], [phone], [facility] Internal [facility] 09/08/2023 15:41:05 4 text/htm l [...] cp no sobnow taking extra lisnopril Kev Altamirano DO [address] [place], [address], [facility] Internal [facility] 10/22/2023 14:35:45 4 text/htm l [...] issue with bowels Kev Altamirano, DO [address] [place], [phone] 03/08/2024 10:20:13 5 text/htm l Annual WellnessReported bypatient.Diet and [...] no confusion; no headaches; no fatigue Kev Altamirano, DO [address] [facility], [place], [address], [facility] 09/04/2024 13:50:29 OBGyn Episode No OBEpisode recorded.
== END ==
LOC: HO.CARD 07:39
PROVIDERS: PCP Internal Medicine; Visit Provider Internal Medicine Cardiovascular Disease
DX: Z95.2 Presence of prosthetic heart valve (principal)
CPT/HCPCS: 93306; Q9957

== ENCOUNTER → 2024-09-07 07:42 | Outpatient (BNV) | payer BC, SELFPAY | PROVIDERS: PCP Internal Medicine; Visit Provider Internal Medicine Cardiovascular Disease | DX: Z95.2 Presence of prosthetic heart valve (principal) | CPT/HCPCS: 93306 ==

== ENCOUNTER 2024-11-14 10:08 | Outpatient (AMB) | payer BC, SELFPAY ==
--- NOTE | 2024-11-14 10:14 | MHC.OFFVIS ---
Vital Signs 11/14/24 10:16 Height 5 ft 4 in Weight 167 lb 8.821 oz BMI 28.8 BP 120/70 Blood Pressure Location Lt brachial Position Sitting Pulse 72 Intake Visit Reasons: 7m follow up Intake Note: 7 month follow-up with ekg feeling good Allergies penicillin G Allergy (Mild, Verified 03/11/23 13:08) rash Medication List - Last Reconciled 11/14/24 by Kain Sheikh MD amlodipine 5 mg PO QPM aspirin (Ecotrin Low Strength) 81 mg PO DAILY coenzyme Q10 100 mg PO DAILY lisinopril-hydrochlorothiazide 20-12.5 mg 2 tabs PO DAILY mecobalamin (vitamin B12) 1,000 mcg PO DAILY psyllium husk (Metamucil) 0.4 grams PO QHS rosuvastatin 5 mg PO DAILY Saccharomyces boulardii (Daily Probiotic (S. boulardii)) 250 mg PO BID sertraline 12.5 mg (1/2 x 25 mg) PO DAILY HPI Comments Details: Monie comes for follow-up. She has been doing very well. She recently well push mowing the lawn developed some discomfort at the surgical site. Otherwise she has had no chest discomfort. She occasionally at nighttime feels fluttering in his chest. She says 1 day she had more fluttering and recalls having alcohol that night after 6 months. She has not had any prolonged irregular heartbeat or palpitations. Takes all her medications. No exertional chest pain, shortness of breath. No orthopnea, PND, leg edema. No lightheadedness, syncope. Takes all her medications. [facility] Medical History Aortic stenosis HTN (hypertension) Surgical History S/P AVR Hx of hysterectomy Family History Father Mitral valve disease Mother HTN (hypertension) Social History Patient Tobacco Use Status: Never used Tobacco Review of Systems Const Denies chills, Denies fatigue, Denies fever(s), Denies frequent falls, Denies weakness, Denies weight gain and Denies weight loss ENT Denies dizziness Card Denies chest pain, Denies leg edema, Denies lightheadedness, Denies palpitations, Denies dyspnea, Denies dyspnea on exertion, Denies orthopnea and Denies other (loss of consciousness) Resp Denies cough, Denies dyspnea and Denies dyspnea on exertion GI Denies hematochezia and Denies change in stool character Musc Denies abnormal gait, Denies muscle weakness, Denies numbness, Denies radiating pain into limb and Denies tingling Neuro Denies abnormal gait, Denies dizziness, Denies frequent falls, Denies numbness, Denies tingling and Denies weakness Endo Denies fatigue and Denies palpitations Physical Exam Vital Signs: Last Vital Signs Pulse 72 11/14/24 10:16 BP 120/70 11/14/24 10:16 BMI result Body Mass Index 28.8 Const General: cooperative, comfortable, no acute distress, alert, awake, anxious and well groomed Nutritional Appearance: average body habitus Orientation/consciousness: patient oriented x3 Neck Neck: Yes trachea midline, Yes supple and Yes no JVD Chest Chest palpation & inspection: other (Well-healed sternotomy scar) Resp Effort & Inspection: normal respiratory effort Auscultation: diminished lung sounds on the right in the lower lung crystal Cardio Jugular venous distension: no JVD Rate: regular rate Rhythm: regular rhythm Heart sounds: S1 normal heart sound present, S2 normal heart sound present, no click, no gallops and no murmurs Skin General skin exam: no rashes or lesions noted Neuro General: patient oriented x3 and no focal motor deficits Extrem General: Yes no clubbing, cyanosis or edema Office Procedures EKG Details: EKG shows normal sinus rhythm with frequent PACs with aberrancy with poor R-wave progression most likely lead placement [id number], Complete Assessment & Plan Assessment & Plan (1) S/P AVR: Comment: 21 mm Bioprosthetic valve, mean gradient 13 mm of HG, post op Echo Code(s): Z95.2 - Presence of prosthetic heart valve Category: Surgical Plan: Status post bioprosthetic aortic valve replacement with stable mean gradient across the aortic valve on recent echocardiogram. Doing well. Clinically much improved symptoms. Continue low-dose aspirin therapy. SBE prophylaxis as per ACC/aha guidelines. Continue risk factor modification. Continue maintain activity level as tolerated. Follow-up echocardiogram in 1 year's time. (2) HTN (hypertension): Code(s): I10 - Essential (primary) hypertension Category: Medical Plan: Hypertension which is currently well optimized on current therapy. Importance of good blood pressure control was discussed. Continue current therapy. Low-salt diet was discussed. Target goal blood pressure less than 130/84. Advised to monitor blood pressure at home and maintain a log. Maintain aerobic activity as tolerated. (3) PAC (premature atrial contraction): Code(s): I49.1 - Atrial premature depolarization Category: Medical Plan: PACs noted on today's EKG. She has symptoms mostly at nighttime. She says she had lot of symptoms after alcohol use which she does not use frequently. Advised to avoid stimulants such as caffeine and alcohol. Will avoid pharmacotherapy at this point time. Discussed potential development of atrial fibrillation and reports symptoms. Also discussed about potentially investing in her own mobile EKGs device. She will think about it. Will follow up in the clinic in 1 year's time, sooner p.r.n.. Thank you for allowing me to partake in her care Coding Level of Care Code Est Pt Level 4 (47233) Complex EM visit Add On G2211 Diagnoses S/P AVR Z95.2 HTN (hypertension) I10 PAC (premature atrial contraction) I49.1 CPT Codes EKG - CPT: 25297-[id number], Complete ([id number])
[2024-11-14 10:16] VITALS: BP 120/70; PULSE 72; BMI 28.8
--- OUTSIDE RECORDS SUMMARY | 2024-11-14 10:55 | XMS_ITS | Data Portability ---
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) [facility] MODERATE MUST MEET 2 OUT OF [...] COVERED Not available 10/22/2023 14:07:16 03/08/2024 03/08/2024 [id number] [place] [id number] (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) MDM MODERATE MUST MEET 2 OUT OF [...] Modified Time Details Appointments FOLLOW UP 2024 09:30A M DR ALTAMIRANO Not available Not available Not available Lab HbA1c (hemoglob in A1c), blood 2024 025 [facility], [address] [place] [address], [place], [address], 09/04/2024 13:56:13 CMP, serum or plasma 2024 025 [facility], [address] [place] [address], [id number], 09/04/2024 13:56:13 CBC 2024 025 [facility], [address] [place] [address], [address], 09/04/2024 13:56:13 vitamin D, 25-hydrox y, total, serum 2024 025 [facility], [address] [place] [address], [address], 09/04/2024 13:56:13 lipid panel, blood 2024 025 [facility], [address] [place] [address], [address], 09/04/2024 13:56:13 HbA1c (hemoglob in A1c), blood 2023 024 [facility], [address] [place] [address], [address], 08/28/2024 16:08:36 CMP, serum or plasma 2023 024 [facility], [address] [place] [address], [address], 03/08/2024 10:20:28 CBC 2023 024 [facility], [address] [place] [address], [address], 03/08/2024 10:20:28 vitamin D, 25-hydrox y, total, serum 2023 024 [facility], [address] [place] [address], [address], 03/08/2024 10:20:28 CBC 2023 024 [facility], [address] [place] [address], [address], 09/16/2023 11:08:29 ferritin, serum or plasma 2023 024 [facility], [address] [place] [address], [address], 09/08/2023 15:40:01 folate, serum 2023 024 [facility], [address] [place] [address], [address], 09/08/2023 15:40:01 iron + total iron-bind ing capacity (TIBC), serum 2023 024 [facility], [address] [place] [address], [address], 09/08/2023 15:40:01 retic count, blood 2023 024 [facility], [address] [place] [address], [address], 09/08/2023 15:40:01 vitamin B12, serum 2023 024 [facility], [address] [place] [address], [address], 09/08/2023 15:40:01 BMP, serum or plasma 2023 024 [facility], [address] [place] [address], [address], 09/08/2023 15:40:00 CBC 2023 024 [facility], [address] [place] [address], [address], 09/16/2023 11:08:29 Referral None recorded. Procedures None recorded. Surgeries None recorded. Imaging None recorded. Medication Orders fluocinol one acetonide oil 0.01 % ear drops 2023 [id number], [address], [place], [id number], 03/08/2024 10:16:56 lisinopri l 10 mg tablet 2023 [facility], [facility], [place], [id number], 03/27/2024 15:07:41 Patient TargetsNo targets recorded. Patient Instructions Encounter Date Encounter Id Patient Instructions Last Modified By Organization Details Last Modified Time 09/08/2023 [id number] high blood pressure: care instructions Not available 09/08/2023 15:27:59 learning about high blood pressure Not available 09/08/2023 15:27:59 09/22/2023 [id number] high blood pressure: care instructions Not available 09/22/2023 10:53:18 learning about high blood pressure Not available 09/22/2023 10:53:18 10/22/2023 [id number] hypokalemia: car e instructions Not available 10/22/2023 14:09:00 Reason for Referral None Reported. Results Created Date Observation Date Name Description Value Unit Range Abnormal Flag Note LastModifiedBy Organization Detail LastModifiedTime 02/09/2002/09/2024 MAMMO , scree evelio, digit al, bilat eral No observ ation record ed. [facility] - Callback Orders Only [address] [place], [address], 03/08/2024 10:08:49 Result Notes None recorded. 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 Kev Altamirano DO [address] [place] [address], [address], [facility] 2 09:20:24 Diarrhea 24672301 Active 2021 Kev Altamirano DO [address] [place] [address], [address], [facility] 2 11:13:50 Right flank pain 854128601 Active 2022 CAROLINA ONTIVEROS [address] [place] [address], [address], [facility] 3 12:27:54 Food-bor ne gastroen teritis 455287067 Active 2022 Kev Altamirano DO [address] [place] [address], [address], [facility] 3 15:04:13 Clostrid ium difficil e colitis 603744355 Active 2022 Kev Altamirano DO [address] [place] [address], [address], [facility] 3 10:26:46 Abdomina l pain 01952245 Active 2022 CAROLINA ONTIVEROS [address] [place] [address], [address], [facility] 3 14:05:42 Fever with chills 982119425 Active 2022 CAROLINA ONTIVEROS [address] [place] [address], [address], [facility] 3 14:03:36 Pyrexia of unknown origin 9903781 Active 2022 CAROLINA ONTIVEROS [address] [place] [address], [address], [facility] 3 14:08:52 Hypokale yasmine 16372612 Active 2022 CAROLINA ONTIVEROS [address] [place] [address], [address], [facility] 3 13:23:51 Constipa tion 77978679 Active 2022 Kev Altamirano, DO [address] [place] [address], [address], [facility] 3 22:51:00 Systolic murmur 69886807 Active 2022 Kev Jones Junior, DO [address] [place] [address], [address], [facility] 3 15:29:29 Severe aortic valve stenosis 428021002 Completed 202310/22/2023 Kev Altamirano, DO [address] [place] [address], [address], [facility] 4 14:07:51 Critical stenosis of aortic valve 378624880 Active 2022 Kev JuniorBuster Altamirano, DO [address] [place] [address], [address], [facility] 3 14:23:02 Drug-ind uced hypokale [facility] 297258379 Active 2023 Kev JuniorBuster Altamirano, DO [address] [place] [address], [address], [facility] 4 21:25:01 Severe aortic valve stenosis 544977010 Active 2023 Kev Altamirano, DO [address] [place] [address], [address], [facility] 4 14:07:51 Osteopen ia 752025984 Active 2017 Not Available [facility] 13:48:11 Family history of diabetes mellitus 163267835 Active 2017 Not Available [facility] 13:48:11 Impaired fasting glycemia 930570517 Active 2017 Not Available [facility] 13:48:11 History of hysterec ghulam 826893441 Active 2017 Not Available [facility] 13:48:11 [facility] hyperten ayanna 45761170 Active 2017 Not Available [facility] 13:48:11 Osteoart hritis 370244594 Active 2017 C spine Not Available [facility] 13:48:11 Problem Notes None recorded. Procedures Surgical History Date Name Laterality Status Provider Name and Address Organization Details Recorded Time 09/18/19 16 colonoscopy completed Divya Velasco NP, S [address] [place] [address], [address], [facility] 06/07/2018 14:08:52 total abdominal hysterectomy completed Divya Velasco NP, S [address] [place] [address], [address], [facility] 06/07/2018 14:02:55 Imaging Results None recorded. Procedure Notes None recorded. Medical Equipment None Reported. Allergies Allergen ID Allergen Name Allergen Category Reaction Reaction Severity Criticality Documentation Date Start Date Code Code System Note Provider Name and Address Organization Details Recorded Time 155 penicilli n V Not available Not available Not available Not available 07/09/2017 7984 RxNorm Latanya bay [facility] 8 15:27:35 156 bee pollen environme nt,medica tion Not available Not available Not available 07/09/2017 08598 7 RxNorm Latanya bay [facility] 8 15:29:26 Medications Name Sig Start [...] AFFECTED AREA TWICE DAILY FOR 10 DAYS 09/27 /2023 completed Not Available Not Available Not Available [...] Relief 50 mcg/actuati on nasal spray,suspe nsion Bartlett 1 spray every day by intranasa l route for 30 days. 08/12 completed Not Available Not Available Not Available Shingrix (PF) 50 mcg/0.5 mL intramuscul ar suspension, kit 02/10 completed Not Available Not Available Not Available Fluzone High-Dose 2457-1940 (PF) 180 mcg/0.5 mL intramuscul ar syringe 08/30 completed Not Available Not Available Not Available Fluad 2018-20 65yr up(PF)45 mcg(15 mcgx3)/0.5 mL intramuscul ar syringe 02/10 completed Not Available Not Available Not Available Flowflex COVID-19 Antigen Home Test kit 08/12 completed Not Available Not Available Not Available Vitals Date Recorded Body height Body mass index (BMI) Body weight Systolic And Diastolic Provider Name and Address Organization Details Last Updated DateTime 09/04/2024 161.29 cm 27.4 kg/m2 13184 g 130/68 mm[Hg] Sheryl Kiser [facility] 09/04/2024 13:26:24 Date Recorded Body height Body mass index (BMI) Body weight Heart rate Respiratory rate Oxygen saturation Oxygen saturation in Arterial blood by Pulse oximetry Systolic And Diastolic Provider Name and Address Organization Details Last Updated DateTime 4 161.29 cm 26.2 kg/m2 11337.8 6 g 88 /min 18 /min 97 % 97 % 142/82 mm[Hg] Jimmy Prater [facility] 4 15:12:18 Date Recorded Body height Body mass index (BMI) Body weight Heart rate Respiratory rate Oxygen saturation Oxygen saturation in Arterial blood by Pulse oximetry Body temperature Systolic And Diastolic Provider Name and Address Organization Details Last Updated DateTime 4 161.29 cm 25 kg/m2 58081.4 3 g 64 /min 16 /min 96 % 96 % 98.8 [degF] 162/90 mm[Hg] Jimmy Prater [facility] 4 10:30:20 Date Recorded Body height Body mass index (BMI) Body weight Heart rate Oxygen saturation Oxygen saturation in Arterial blood by Pulse oximetry Systolic And Diastolic Provider Name and Address Organization Details Last Updated DateTime 4 161.29 cm 26.9 kg/m2 13756.0 2 g 66 /min 99 % 99 % 158/84 mm[Hg] Oksana Antwan [facility] 4 13:43:31 Date Recorded Body height Body mass index (BMI) Body weight Heart rate Oxygen saturation Oxygen saturation in Arterial blood by Pulse oximetry Systolic And Diastolic Provider Name and Address Organization Details Last Updated DateTime 4 161.29 cm 27.4 kg/m2 15133 g 88 /min 98 % 98 % 126/70 mm[Hg] Kev Altamirano DO [address] [place] [address], [address], [facility] 4 10:06:10 Social History Question Answer Notes LastModified by Organizat ion Details LastModified Time Tobacco Smoking Status Never Smoker Not Available [facility] 03/12/2020 03:36:23 What Was The Date Of Your Most Recent Tobacco Screening? 09/04/2024 [email or web address] Information not available 09/04/2024 Sex: Unknown Functional Status Question Answer Note LastModified by Organization D etails LastModified Time Do you or have you ever used any other forms of tobacco or nicotine? No Information not available 04/26/2023 Mental Status None recorded. Family History Relationship Description Onset Age of this Age Resolved Age Notes LastModified by Organization Details LastModified Time Mother Diabetes mellitus htn brandon Not available 2018 14:05:38 Father Hypertensive disorder brandon Not available 2018 14:05:57 Medical History No medical history recorded. Gynecological History Statement/Question Response LMP Unknown Obstetrics History GPAL:G 0 P 0 0 0 0 Immunizations Vaccine Type Date Status Note Provider Nam e and Address Organization Details Recorded Time Influenza, split virus, quadrivalent, preservative 02/14/20 21 completed CAROLINA ONTIVEROS [address] [place] [address], [address], [facility] 02/14/2021 13:41:40 Tdap 02/22/20 21 completed Kev Altamirano DO [address] [place] [address], [address], [facility] 02/23/2021 08:52:18 COVID-19, mRNA, LNP-S, PF, 30 mcg/0.3 mL dose 08/20/19 21 completed Kev Altamirano DO [address] [place] [address], [address], [facility] 03/04/2021 09:00:50 Influenza, split virus, quadrivalent, preservative 03/06/20 22 completed Kev Altamirano DO [address] [place] [address], [address], [facility] 03/09/2022 10:26:53 Influenza, split virus, quadrivalent, preservative 03/02/20 18 completed Mikki bay [facility] 08/30/2018 08:57:37 Pneumococcal conjugate PCV 13 03/02/20 18 completed Mikki bay [facility] 08/30/2018 08:57:37 zoster live 02/14/20 [facility] 08:57:37 zoster live 10/13/19 19 completed Kev Altamirano DO [address] [place] [address], [address], [facility] 10/13/2018 08:38:09 zoster live 12/23/19 19 completed Latanya bay [facility] 12/23/2018 08:17:04 Influenza, split virus, quadrivalent, preservative 12/23/19 19 completed Latanya bay [facility] 12/23/2018 08:17:14 pneumococcal polysaccharide PPV23 05/15/19 20 completed Latanya bay [facility] 05/16/2019 08:17:36 COVID-19, mRNA, LNP-S, PF, 30 mcg/0.3 mL dose 07/30/19 21 completed Kev Altamirano DO [address] [place] [address], [address], [facility] 08/12/2020 10:17:22 Past Encounters Encounter ID Performer Location Encounter Start Date Encounter Closed Date Diagnosis/Indication Diagnosis SNOMED-CT Code Diagnosis ICD10 Code Diagnosis Note [id number] Kev Jones Junior [facility] [address] [facility], [place] [address] 08/17/2017 08:46:38 08/17/2017 09:58:20 Adult health examination 256206471 Z00.00 Active or passive immunization 384485780 Z23 Eczema of external auditory canal 83806176 H60.549 [id number] Kev Pinedafrancis [facility] [address] [facility] [address] 02/07/2018 09:50:57 02/07/2018 10:58:07 Essential hypertension 74255101 I10 stable has 6 month f/u in a couple weeks Pneumonia 131169828 J18. 9 mucinex-dm fluids rest f/u as needed [id number] Kev Altamirano [facility] [address] [facility] [address] 02/25/2018 08:48:14 02/25/2018 09:25:33 Essential hypertension 26270920 I10 will rechk in 6 mo Impaired f asting glycemia 530082012 R73.01 stable going to [facility] Pneumonia 629650863 J18. 9 resolved and is overall recup [id number] Kev Altamirano [facility] [address] [facility] [address] 06/07/2018 15:25:48 06/07/2018 16:15:28 Spasm of back muscles 447461881 M62.830 Essential hypertension 41089115 I10 stable [id number] Kev JuniorBuster Altamirano [facility] [address] [facility],[place] [address] 08/30/2018 08:50:29 08/30/2018 09:38:08 Adult health examination 017567212 Z00.00 doing great Active or passive immunization 098414831 Z23 needs shingles Screening for cardiovascular system disease 962333437 Z13.6 also given a systolic heart murmur, will ask to get an echo if not already done will check old chart Screening for osteoporosis 531602488 Z13.820 done last year Screening mammography 24 550829 Z12.31 done mar Kev Altamirano [facility] [address] [facility] [address],[place] [address] 02/10/2019 09:20:01 02/10/2019 12:33:39 Hypertensive disorder 01896661 I10 reviewed lab in detail all wnl cholest excellent Essential hypertension 61044919 I10 will rechk in 6 mo Impaired f asting glycemia 271794415 R73.01 stable going to [facility] in mar Kev Altamirano [facility] [address] [facility] [address],[place] [address] 09/15/2019 09:26:08 09/15/2019 10:42:51 Acute pharyngitis 031700141 J02.9 [id number] Kev Altamirano [facility] [address] [facility] [address],[place] [address] 02/05/2020 16:04:27 02/05/2020 17:04:58 Adult health examination 170718998 Z00.00 doing great [id number] Kev Altamirano [facility] [address] [facility] [address],[place] [address] 08/12/2020 10:09:26 08/12/2020 11:00:19 Impaired fasting glycemia 500678039 R73.01 will need to have this a1c done Essential hypertension 42935872 I10 will rechk in 6 mo [id number] Kev Altamirano [facility] [address] [facility] [address],[place] [address] 03/04/2021 08:52:06 03/04/2021 13:59:40 Active or passive immunization 489875835 Z23 needs shingles Adult heal th examination 200982571 Z00.00 doing great Postmenopa usal osteopenia 531921834 M85.80 [id number] Kev Altamirano [facility] [address] [facility] [address],[place] [address] 09/03/2021 09:02:03 09/03/2021 14:48:50 Essential hypertension 38507286 I10 will rechk in 6 mo Impaired f asting glycemia 998551554 R73.01 will need to have this a1c done next lab Eczema of external auditory canal 36633682 H60.549 we will refill Osteopenia 669674705 M85 .80 noted in hip we will have her followed with this ' [id number] Kev Altamirano [facility] [address] [place] [address], [place] [address] 12/30/2021 09:31:47 12/30/2021 11:39:49 Diarrhea 58233176 R19.7 after long discussion she will try scrambled eggs and clear liquids and occ immodium today only and see if she can prevent a return of the watery diarrhea note she has not been on abx recently and has not been around anyone with similar episodes [id number] Kev Altamirano [facility] [address],[place] [address] 03/09/2022 10:19:37 03/09/2022 11:37:12 Active or passive immunization 722296411 Z23 patient advised she is due for flu shot Adult [facility] th examination 812410015 Z00.00 doing great Advance care planning 71 7449952 Z71.89 done [id number] Kev Altamirano [facility] [address] [place] [address],[place] [address] 08/12/2022 14:08:08 08/12/2022 15:15:54 Diarrhea 46993486 R19.7 after discussion it appears this very well may be a E Coli toxin gastroente ritis we will re culture and start cipro 500 bid and probiotics Food-borne gastroenteritis 021871853 A05.9 [id number] Kev Altamirano [facility] [address] [place] [address],[place] [address] 09/02/2022 13:19:54 09/02/2022 16:20:03 Diarrhea 50665940 R19.7 did good with initial cipro tx but have now returned ?c diff, ?return of poss E coli? side effect of ciprowe will have her rechk all cultures [id number] Kev Altamirano [facility] [address] [facility] [address], [place] [address] 11/16/2022 13:50:51 11/16/2022 15:32:36 Diarrhea 07443156 A07.8 agreed to gastro PCR panel and C diff Abdominal pain 96835702 R10.[address] set with [address] CT abdomen + pelvis Fever with chills 134591 006 R50.84 continue with APAP as directed Clostridiu m difficile colitis 677305326 A04.72 will set up with STAT CTrepeat C Diff culturelab work Pyrexia of unknown origin 1730771 R50.84 most likely related to possible colitis of either infectious or inflammato ry naturehas colonoscop y was scheduled in [facility] have them move that up if the C diff is still negative [id number] Kev Altamirano [facility] [address] [facility], [place] [facility] [place] 7 02/03/2023 14:38:57 02/03/2023 15:53:32 Clostridium difficile colitis 514013536 A04.72 resolved with vanco Diarrhea 78204323 A07.8 resolved will Essential hypertension 49243718 I10 will rechk in 6 mo Constipation 49650984 K5 9.00 will hold the lactulose for now if after 2 days she has no bm she can takealso metamucil she will start as wellcont her water drinking Systolic murmur 44648214 R01.1 Impaired f asting glycemia 242463885 R73.01 will need to have this a1c done next lab [id number] Kev Altamirano [facility] [address] [facility] [address],[place] [address] 04/26/2023 13:48:27 04/26/2023 14:55:12 Active or passive immunization 452305928 Z23 patient advised she is due for flu shot Adult heal th examination 201276988 Z00.01 will be seeing cardiac surg for TAVR has severe Essential hypertension 79026417 I10 will rechk in 6 mo Hypokalemia 20135313 E87 .6 stable Clostridiu m difficile colitis 842107562 A04.72 resolved with vanco Critical s tenosis of aortic valve 277489175 I35.0 setting up for TAVR [id number] Kev lAtamirano [facility] [address] [facility] [address],[place] [address] 06/09/2023 08:30:18 06/09/2023 16:41:48 Critical stenosis of aortic valve 592578036 I35.0 setting up for aortic valve replacemen t open surgeryshe will set up a follow up after she gets surg date Essential hypertension 63081686 I10 home bps have been stable no change in meds [id number] Kev Altamirano [facility] [address] [facility], [place] [facility] [place] [address] 09/08/2023 14:43:19 09/08/2023 15:47:27 Critical stenosis of aortic valve 022387488 I35.0 successful replacemen t followed by pleural effus and collapsed lungwill be followed by a cardiology Essential hypertension 28152936 I10 home bps have been stable no change in meds Depression screening 171 108465 Z13.31 she is post op and this is not appropriat e at this time [id number] Kev Altamirano [facility] [address] [facility] [place] [address] 09/22/2023 10:21:01 09/22/2023 11:13:37 Essential hypertension 38004425 I10 home bps have been stable no change in meds [id number] Kev Altamirano [facility] [address] [facility] [address],[place] [address] 10/22/2023 13:35:15 10/22/2023 14:25:19 Essential hypertension [id number] I10 home bps have been stable no change in meds Severe aor tic valve stenosis [id number] I35.0 repair successful well healed scarchest no longer sore or feeling heavy Hypokalemia [id number] E87 .6 stable on kcl but will need to rechk now that she is off furosemide [id number] Kev Altamirano [facility] [address] [facility],[place] [address] 03/08/2024 09:49:25 03/08/2024 10:45:59 Impaired fasting glycemia [id number] R73.01 will need to have this a1c done next lab Essential hypertension [id number] I10 home bps have been stable no change in meds Eczema of external auditory canal 87105009 H60.549 we will refill [id number] Kev Altamirano DO [facility] [address] [facility],[place] [address] 09/04/2024 13:18:37 09/04/2024 13:57:47 Active or passive immunization [id number] Z23 patient advised she is due for flu shot Adult heal th examination [id number] Z00.00 will be seeing cardiac surg for TAVR has severe due for echo this week Essential hypertension [id number] I10 home bps have been stable no change in meds Hypokalemia 19518922 E87 .6 stable on kcl but will need to rechk now that she is off furosemide Impaired f asting glycemia [id number] R73.01 will need to have this a1c done next lab Health Concerns Section Related Observation LastModified by Organization Detai ls LastModified Time None Recorded Concern Status LastModified by Organization Details LastModified Time None Recorded Advance Directives Directive None Recorded Payers Insurance Date Sequence Insurance Name Policy Number Policy Mata Covered Member ID Mata Member ID Guarantor Name 09/04/2024 1 [facility] [place] [id number] Monie Lake [id number] Monie Lake Notes Date Note Type Note Provider Name and Address Organization Details Recorded Time 4 text/htm l her since surgery for aortic valvespent 15 days in hospsurg successfulstil l has a partially collapsed lung but she is ding incentive spirometrybp has been better (was too low) and lisinopril was stoppedsurg was complicated by pleural effus Kev Altamirano DO [address] [place] [address], [phone], [facility] 09/08/2023 15:41:05 4 text/htm [...] taking extra lisnopril Kev Altamirano DO [address] [place], [address], [facility] 10/22/2023 14:35:45 4 text/htm [...] outsidesleep is goodno issue with bowels Kev Altamirano DO [address] [place], [address], [facility] 03/08/2024 10:20:13 5 text/htm l [...] headaches; no fatigue Kev Altamirano, DO [address] [place], [address], [facility] 09/04/2024 13:50:29 OBGyn Episode No OBEpisode recorded.
== END 2024-11-14 10:39 | disposition home or self-care (01) ==
LOC: HO.HCS 10:09
PROVIDERS: PCP Internal Medicine; Visit Provider Internal Medicine Cardiovascular Disease
DX: Z95.2 Presence of prosthetic heart valve (principal); I10 Essential (primary) hypertension; I49.1 Atrial premature depolarization
CPT/HCPCS: 93010; 99214

== ENCOUNTER → 2024-11-14 10:08 | Outpatient (BNVA) | payer BC, SELFPAY | PROVIDERS: PCP Internal Medicine; Visit Provider Internal Medicine Cardiovascular Disease | DX: I49.1 Atrial premature depolarization (principal); I10 Essential (primary) hypertension; Z95.2 Presence of prosthetic heart valve | CPT/HCPCS: 93005 ==

== ENCOUNTER 2025-01-26 09:40 | Outpatient (REF) | payer BC, SELFPAY ==
--- OUTSIDE RECORDS SUMMARY | 2023-07-11 14:13 | XMS_ITS | Encounter Summary ---
Author Organization [facility] Address [address] [place] [address] Phone Care Team Providers Care Member Services Representative Name Role Phone EdwinKev blanco Sandi ROMERO Primary Care Provider [phone] Kev Pacheco DO Unavailable Sarah Law MD Unavailable [phone] Encounter Details Date Type Department Care Team (Late st Contact Info) Description 07/11/2023 1:13 PM EST Hospital Encounter [facility] [address] [place] [address] [phone] Sheryl Gibson PA-C, MS [address] [place] [address] [email or web address] Social History Tobacco Use Types Packs/Day Years [...] as of this encounter Plan of Treatment Upcoming Encounters Date Type Department Care Team (Late st Contact Info) Description 01/24/2025 Procedure Pass [address] [address] 09/19/2025 7:30 AM EDT Appointment [address] [address] Kev Pacheco, DO [address] [facility] [address] [email or web address] documented as of this encounter Procedures Procedure [...] clinician's provided indication for this examination in [facility]:Cough; intermittent cough and congestion for 1.5 weeks, [...] documented as of this encounter Care Teams Member Services Representative Relationship Specialty Start Date End Date Kev Pacheco DO PCP - General 02/22/17 Kev Pacheco DO [email or web address] Historical LMR Provider 02/27/17 Sarah Law MD [address] [place] [id number] Historical LMR Provider 02/27/17 documented as of this encounter Additional Source Comments The information contained in this document represents components of the legal health record. It is not the complete legal health record.[facility]
--- OUTSIDE RECORDS SUMMARY | 2025-01-26 10:15 | XMS_ITS | Encounter Summary ---
Author Organization [facility] Address [address] [facility] [address] [place] [address] Phone Care Team Providers Care Pathology Transcriptionist Name Role Phone Kev Pacheco DO Primary Care Provider [phone] Kev Pacheco DO Unavailable Sarah Law MD Unavailable + [phone] Kev Pacheco DO Unavailable Encounter Details Date Type Department Care Team (Late st Contact Info) Description 06/05/2022 Procedure Pass [address] [address] Social History Tobacco Use Types Packs/Day Years Used Date Smoking Tobacco: Never Smokeless Tobacco: Never Comments No Sex and Gender Information Value Date Recorded Sex Assigned at Not on file Legal Sex Female 9:59 PM EDT Gender Identity Not on file Sexual Orientation Not on file documented as of this encounter Plan of Treatment Upcoming Encounters Date Type Department Care Team (Late st Contact Info) Description 01/24/2025 Procedure Pass [address] [address] 09/19/2025 7:30 AM EDT Appointment [address] [address] Kev Pacheco DO [address] [facility] [place] [address] documented as of this encounter Visit Diagnoses Not on filedocumented in this encounter Additional Health Concerns Infection Onset Date Last Indicated Resolved Time C. diff 09/05/2022 09/05/2022 10/05/2022 1:23 AM EDT C. diff 11/17/2022 11/17/2022 12/17/2022 1:21 AM EDT CoV-Risk 07/11/2023 07/11/2023 07/11/2023 1:35 PM EST COVID-19 07/11/2023 07/11/2023 08/01/2023 1:21 AM EDT documented as of this encounter Care Teams Pathology Transcriptionist Relationship Specialty Start Date End Date Kev Pacheco DO PCP - General 02/22/17 Kev Pacheco DO Historical LMR Provider 02/27/17 Sarah Law MD [address] [place] [phone] Historical LMR Provider 02/27/17 Kev Pacheco DO [address] [place] [address] Insurance Assigned Provider 08/14/23 documented as of this encounter Additional Source Comments The information contained in this document represents components of the legal health record. It is not the complete legal health record.[facility]
--- OUTSIDE RECORDS SUMMARY | 2025-01-26 10:15 | XMS_ITS | Encounter Summary ---
Author Organization [facility] Address [address] [facility] [address] [place] [address] Phone Care Team Providers Care Supervisor Accounts Receivable Name Role Phone Kev Pacheco DO Primary Care Provider Kev Pacheco DO Unavailable Kim Adams CRM DEVELOPER Unavailable Marika Bruce MD Unavailable [phone] Kunal Stewart MD Unavailable Vira Henry MD Unavailable Sarah Law MD Unavailable [phone] Yazmin Pitts CRM DEVELOPER Unavailable Kev Pacheco DO Unavailable Encounter Details Date Type Department Care Team (Late st Contact Info) Description 02/03/2018 Ancillary Orders Virtual Department [address] [place] [address] Kev Pacheco DO [address] [facility] [place] [address] Breast screening Social History Tobacco Use Types Packs/Day Years Used Date Smoking Tobacco: Never Smokeless Tobacco: Never Comments Unknown Sex and Gender Information Value Date Recorded Sex Assigned at Not on file Legal Sex Female 9:59 PM EDT Gender Identity Not on file Sexual Orientation Not on file documented as of this encounter Plan of Treatment Upcoming Encounters Date Type Department Care Team (Late st Contact Info) Description 01/24/2025 Procedure Pass [address] [address] 09/19/2025 7:30 AM EDT Appointment [address] [address] Kev Pacheco, [address] [facility] [place] [address] documented as of this encounter Results * BI MAMMOGRAM SCREENING WITH TOMOSYNTHESIS WITH CAD (BILATERAL) (03/10/2018 7:56 AM EDT) Anatomical Region Laterality Modality Breast Left, Breast Right, Breast Bilateral Bila teral Mammography 03/10/2018 2:44 PM EDT Impressions 03/10/2018 2:49 PM EDT No mammographic signs of malignancy. Annual screening is recommended. BI-RADS CATEGORY: 2 - Benign finding. DENSITY: There are scattered fibroglandular densities. POS - CDHMAM2 Narrative 03/10/2018 2:49 PM EDT Bilateral mammography is performed in conjunction with computed aided detection. 3-D tomography along with 2-D C view imaging was also performed. Comparison made to previous dated as far back as 07/29/2011 and as recent as 02/22/2017. No suspicious masses, areas of architectural distortion or suspicious microcalcifications. Scattered bilateral lucent centered calcifications with benign characteristics are stable. Procedure Note Camacho Hilario MD - 03/10/2018 Bilateral mammography is performed in conjunction with computed aideddetection. 3-D tomography along with 2-D C view imaging was alsoperformed. Comparison made to previous dated as far back as 07/29/2011 andas recent as 02/22/2017. No suspicious masses, areas of architectural distortion or suspiciousmicrocalcifications. Scattered bilateral lucent centered calcificationswith benign characteristics are stable. IMPRESSION: No mammographic signs of malignancy. Annual screening is recommended. BI-RADS CATEGORY: 2 - Benign finding. DENSITY: There are scattered fibroglandular densities. POS - CDHMAM2 us Kev Pacheco DO IMG MG EXAMS Final Result documented in this encounter Visit Diagnoses Diagnosis Breast screening Breast screening, unspecified Breast screening Breast screening, unspecified documented in this encounter Additional Health Concerns Infection Onset Date Last Indicated Resolved Time C. diff 09/05/2022 09/05/2022 10/05/2022 1:23 AM EDT C. diff 11/17/2022 11/17/2022 12/17/2022 1:21 AM EDT CoV-Risk 07/11/2023 07/11/2023 07/11/2023 1:35 PM EST COVID-19 07/11/2023 07/11/2023 08/01/2023 1:21 AM EDT documented as of this encounter Care Teams Supervisor Accounts Receivable Relationship Specialty Start Date End Date Kev Pacheco DO [email or web address] PCP - General 02/22/17 Kev Pacheco DO Historical LMR Provider 02/27/17 Kim Adams NP [address] [place] [address] [email or web address] Historical LMR Provider 02/27/17 2 Marika Bruce MD [address] [place] [address] Historical LMR Provider 02/27/17 2 Kunal Stewart MD [address] [place] [address] [email or web address] Historical LMR Provider 02/27/17 05/17/21 Vira Henry MD [address] [place] [address] Historical LMR Provider 02/27/17 2 Sarah Law MD [address], [place] [address] Historical LMR Provider 02/27/17 Yazmin Pitts NP [address] [place] [address] Historical LMR Provider 02/27/17 2 Kev Pacheco DO [address] [place] [address] [place] [address] [email or web address] Insurance Assigned Provider 08/14/23 documented as of this encounter Additional Source Comments The information contained in this document represents components of the legal health record. It is not the complete legal health record.[facility]
--- OUTSIDE RECORDS SUMMARY | 2025-01-26 10:15 | XMS_ITS | Encounter Summary ---
Author Organization [facility] Address [address] [facility] [address] [place] [address] Phone Care Team Providers Care Technical Stenographer Name Role Phone Edwinfrancis Kev Junior DO Primary Care Provider Kev Pacheco DO Unavailable Kim Adams ORACLE DATABASE CONSULTANT Unavailable Marika Bruce MD Unavailable [phone] Kunal Stewart MD Unavailable Vira Henry MD Unavailable Sarah Law MD Unavailable [phone] Yazmin Pitts ORACLE DATABASE CONSULTANT Unavailable Kev Pacheco DO Unavailable Encounter Details Date Type Department Care Team (Late st Contact Info) Description 01/16/2019 Ancillary Orders Virtual Department [address] [place] [address] Sarah Law MD [address] [place] [address] Breast screening Social History Tobacco Use Types [...] st Contact Info) Description 01/24/2025 Procedure Pass [address] [address] 09/19/2025 7:30 AM EDT Appointment [address] [address] Kev Pacheco, [address] [facility] [place] [address] [email or web address] documented as of this encounter Results * BI MAMMOGRAM SCREENING WITH TOMOSYNTHESIS WITH CAD (BILATERAL) (03/16/2019 7:45 AM EST) Anatomical Region Laterality Modality Breast Left, Breast Right, Breast Bilateral Bila teral Mammography 03/16/2019 7:42 AM EST Impressions 03/16/2019 7:45 AM EST No mammographic change indicative of malignancy. Routine screening is recommended. BI-RADS CATEGORY: 2 - Benign finding. DENSITY: There are scattered fibroglandular densities. POS -CDHMAM2 Narrative 03/16/2019 7:45 AM EST Bilateral full-field digital screening mammography is obtained and read in conjunction with computer-aided detection. Tomosynthesis as well as 2-D C view imaging of both breasts in two planes also obtained. Comparison made to multiple prior, most recent March 10, 2018, and most remote August 05, 2012. No dominant mass, architectural distortion, worrisome asymmetry, or suspicious calcification is identified. No skin or nipple finding of concern is appreciated. Calcifications bilaterally are stable. Procedure Note Naye Spencer MD - 03/16/2019 Bilateral full-field digital screening mammography is obtained and read inconjunction with computer-aided detection. Tomosynthesis as well as 2-D Cview imaging of both breasts in two planes also obtained. Comparison madeto multiple prior, most recent March 10, 2018, and most remote July. No dominant mass, architectural distortion, worrisome asymmetry, orsuspicious calcification is identified. No skin or nipple finding ofconcern is appreciated. Calcifications bilaterally are stable. IMPRESSION: No mammographic change indicative of malignancy. Routine screening isrecommended. BI-RADS CATEGORY: 2 - Benign finding. DENSITY: There are scattered fibroglandular densities. POS -CDHMAM2 Sarah Law MD IMG MG EXAMS Arlyn l Result documented in this encounter Visit Diagnoses [...] documented as of this encounter Care Teams Technical Stenographer Relationship Specialty Start Date End Date Kev Pacheco DO PCP - General 02/22/17 Kev Pacheco DO Historical LMR Provider 02/27/17 Kim Adams NP [address] [place] [address] [email or web address] Historical LMR Provider 02/27/17 2 Marika Bruce MD [address] [place] [address] Historical LMR Provider 02/27/17 2 Kunal Stewart MD [address] [address] Historical LMR Provider 02/27/17 05/17/21 Vira Henry MD [address] [place] [address] Historical LMR Provider 02/27/17 2 Sarah Law MD [address] [address] Historical LMR Provider 02/27/17 Yazmin Pitts NP [address] [place] [address] Historical LMR Provider 02/27/17 2 Kev Pacheco DO [address] [place] [address] [place] [address] [email or web address] Insurance Assigned Provider 08/14/23 documented as of this encounter Additional Source Comments The information contained in this document represents components of the legal health record. It is not the complete legal health record.[facility]
--- OUTSIDE RECORDS SUMMARY | 2025-01-26 10:16 | XMS_ITS | Encounter Summary ---
Author Organization [facility] Address [address] [facility] [address] [place] [address] Phone Care Team Providers Care Hydroelectric Station Operator Chief Name Role Phone Kev Pacheco DO Primary Care Provider Kev Pacheco DO Unavailable Kim Adams SKIN CARE CONSULTANT Unavailable Marika Bruce MD Unavailable Kunal Stewart MD Unavailable [phone] Vira Henry MD Unavailable Sarah Law MD Unavailable [phone] Yazmin Pitts SKIN CARE CONSULTANT Unavailable Kev Pacheco DO Unavailable Encounter Details Date Type Department Care Team (Late st Contact Info) Description 01/08/2020 Ancillary Orders Virtual Department [address] [place] [address] Kev Pacheco DO [address] [facility] [place] [address] Breast screening Social History Tobacco Use Types [...] st Contact Info) Description 01/24/2025 Procedure Pass [address] [address] 09/19/2025 7:30 AM EDT Appointment [address] [address] Kev Pacheco, [address] [facility] [place] [address] [email or web address] documented as of this encounter Results * BI MAMMOGRAM SCREENING WITH TOMOSYNTHESIS WITH CAD (BILATERAL) (06/26/2020 7:38 AM EST) Anatomical Region Laterality Modality Breast Left, Breast Right, Breast Bilateral Bila teral Mammography 06/26/2020 8:23 AM EST Impressions 06/26/2020 8:28 AM EST No findings suspicious for malignancy are identified. In the absence of a worrisome palpable abnormality, annual screening mammography is recommended. BI-RADS CATEGORY: 1 - Negative. DENSITY: There are scattered fibroglandular densities. Narrative 06/26/2020 8:28 AM EST COMPARISON: 09/07/2013 through 03/16/2019 Bilateral 3-D tomosynthesis with 2-D reconstructions in the CC and MLO projection. Computer-aided detection system also utilized. No new mass, asymmetry, architectural distortion or suspicious calcifications have become apparent on either side. Procedure Note Sarath Clark MD - 06/26/2020 COMPARISON: 09/07/2013 through 03/16/2019 Bilateral 3-D tomosynthesis with 2-D reconstructions in the CC and MLOprojection. Computer-aided detection system also utilized. No new mass, asymmetry, architectural distortion or suspiciouscalcifications have become apparent on either side. IMPRESSION: No findings suspicious for malignancy are identified. In the absence of aworrisome palpable abnormality, annual screening mammography isrecommended. BI-RADS CATEGORY: 1 - Negative. DENSITY: There are scattered fibroglandular densities. Kev Pacheco IMG MG EXAMS Final Result documented in [...] documented as of this encounter Care Teams Hydroelectric Station Operator Chief Relationship Specialty Start Date End Date Kev Pacheco DO [email or web address] PCP - General 02/22/17 Kev Pacheco DO Historical LMR Provider 02/27/17 Kim Adams NP [address] [place] [address] [email or web address] Historical LMR Provider 02/27/17 2 Marika Bruce MD [address] [place] [address] Historical LMR Provider 02/27/17 2 Kunal Stewart MD [address] [place] [address] Historical LMR Provider 02/27/17 05/17/21 Vira Henry MD [address] [place], [place] Historical LMR Provider 02/27/17 2 Sarah Law MD [address], [place] Historical LMR Provider 02/27/17 Yazmin Pitts NP [address] [place] [address] Historical LMR Provider 02/27/17 2 Kev Pacheco DO [address] [place] [address] [email or web address] Insurance Assigned Provider 08/14/23 documented as of this encounter Additional Source Comments The information contained in this document represents components of the legal health record. It is not the complete legal health record.[facility]
--- OUTSIDE RECORDS SUMMARY | 2025-01-26 10:16 | XMS_ITS | Encounter Summary ---
Author Organization [facility] Address [address] [facility] [address] [place] [address] Phone Care Team Providers Care Collection Systems Modeler Name Role Phone Edwinfrancis Kev Junior DO Primary Care Provider Kev Pacheco DO Unavailable Kim Adams ARCHITECTURE INTERN Unavailable Marika Bruce MD Unavailable [phone] Kunal Stewart MD Unavailable [phone] Vira Henry MD Unavailable Sarah Law MD Unavailable [phone] Yazmin Pitts ARCHITECTURE INTERN Unavailable Kev Pacheco DO Unavailable Encounter Details Date Type Department Care Team (Late st Contact Info) Description 01/08/2020 Procedure Pass [address] [address] Social History Tobacco Use Types Packs/Day Years [...] st Contact Info) Description 01/24/2025 Procedure Pass [address] [address] 09/19/2025 7:30 AM EDT Appointment [address] [address] Kev Pacheco, [address] [place] [address] [email or web address] documented as of this encounter Visit Diagnoses Not on filedocumented in this encounter Additional Health Concerns Infection Onset Date Last Indicated Resolved Time C. diff 09/05/2022 09/05/2022 10/05/2022 1:23 AM EDT C. diff 11/17/2022 11/17/2022 12/17/2022 1:21 AM EDT CoV-Risk 07/11/2023 07/11/2023 07/11/2023 1:35 PM EST COVID-19 07/11/2023 07/11/2023 08/01/2023 1:21 AM EDT documented as of this encounter Care Teams Collection Systems Modeler Relationship Specialty Start Date End Date Kev Pacheco DO PCP - General 02/22/17 Kev Pacheco DO Historical LMR Provider 02/27/17 Kim Adams NP [address] [place] [address] [email or web address] Historical LMR Provider 02/27/17 2 Marika Bruce MD [address] [place] [address] Historical LMR Provider 02/27/17 2 Kunal Stewart MD [address] [address] [email or web address] Historical LMR Provider 02/27/17 05/17/21 Vira Henry MD [address] [place] [address] Historical LMR Provider 02/27/17 2 Sarah Law MD [address] [address] Historical LMR Provider 02/27/17 Yazmin Pitts NP [address] [place] [address] Historical LMR Provider 02/27/17 2 Kev Pacheco DO [address] [place] [address] [place] [address] [email or web address] Insurance Assigned Provider 08/14/23 documented as of this encounter Additional Source Comments The information contained in this document represents components of the legal health record. It is not the complete legal health record.[facility]
--- OUTSIDE RECORDS SUMMARY | 2025-01-26 10:17 | XMS_ITS | Encounter Summary ---
Author Organization [facility] Address [address] [facility] [address] [place] [address] Phone Care Team Providers Care Hog Operator Name Role Phone Kev Pacheco Primary Care Provider [phone] Bigda, Kev Sandi DO Unavailable Sarah Law MD Unavailable + [phone] Bigfrancis, Kev Junior DO Unavailable Encounter Details Date Type Department Care Team (Late st Contact Info) Description 11/12/2022 Ancillary Orders Virtual Department [address] [place] [address] Norma Belle PA [address] [facility] [place] [address] Abdominal pain, unspecified abdominal location Social History Tobacco Use Types Packs/Day Years [...] st Contact Info) Description 01/24/2025 Procedure Pass [address] [address] 09/19/2025 7:30 AM EDT Appointment [address] [address] Kev Pacheco, DO [address] [place] [address] [email or web address] documented as of this encounter Results * XR Abdomen Series Supine with Decubitus/Erect and Single View Chest (11/11/2022 4:36 PM EDT) Anatomical Region Laterality Modality Abdomen, Chest Computed Radiogr aphy 11/12/2022 9:21 AM EDT Narrative 11/12/2022 9:22 AM EDT XR ABDOMEN SERIES SUPINE WITH DECUBITIS/ERECT AND SINGLE VIEW CHEST COMPARISON: July 24, 2022 FINDINGS: CHEST: Lungs are clear. Heart size is normal. ABDOMEN: Mild amount of retained feces in the colon. No dilated loops of bowel are present to suggest an obstruction. Procedure Note Clint Garces MD, PING - 11/12/2022 XR ABDOMEN SERIES SUPINE WITH DECUBITIS/ERECT AND SINGLE VIEW CHEST COMPARISON: July 24, 2022 FINDINGS: CHEST: Lungs are clear. Heart size is normal. ABDOMEN: Mild amount of retained feces in the colon. No dilated loops of bowel arepresent to suggest an obstruction. us Norma Zaratejames FIGUEROA IMG XR ABDOMEN Final Resul t documented in this encounter Visit Diagnoses Diagnosis Abdominal pain, unspecified abdominal location Abdominal pain, unspecified abdominal location documented in this encounter Additional Health Concerns Infection Onset Date Last Indicated Resolved Time C. diff 11/17/2022 11/17/2022 12/17/2022 1:21 AM EDT CoV-Risk 07/11/2023 07/11/2023 07/11/2023 1:35 PM EST COVID-19 07/11/2023 07/11/2023 08/01/2023 1:21 AM EDT documented as of this encounter Care Teams Hog Operator Relationship Specialty Start Date End Date Kev Pacheco DO PCP - General 02/22/17 Kev Pacheco DO Historical LMR Provider 02/27/17 Sarah Law MD [address] [place] [address] Historical LMR Provider 02/27/17 Kev Pacheco DO [address] [place] [id number] Insurance Assigned Provider 08/14/23 documented as of this encounter Additional Source Comments The information contained in this document represents components of the legal health record. It is not the complete legal health record.[facility]
--- OUTSIDE RECORDS SUMMARY | 2025-01-26 10:17 | XMS_ITS | Encounter Summary ---
Author Organization [facility] Address [address] [place] [address] Phone Care Team Providers Care Mail Manager Name Role Phone EdwinKev blanco Primary Care Provider [phone] Junior, Kev Junior DO Unavailable Sarah Law MD Unavailable + [phone] Junior, Kev Junior DO Unavailable Reason for Referral * MRI/CAT Scan - Closed Specialty Diagnoses / Procedures Referred By Celso aragon Referred To Contact Radiology Diagnoses Acute abdomen Procedures CT Abdomen/Pelvis Norma Belle PA [address] [facility] [place] [address] [place] [address] Phone: tel: fax: Referral ID Status Reason Start Date Expiration Date Visits Re quested Visits Authorized [id number] Closed 11/18/2022 11/18/2023 1 1 Encounter Details Date Type Department Care Team (Latest Contact Info) Description 11/18/2022 Transcribe Orders Virtual Department [address] [place] [address] Norma Belle PA [address] [place] [address] Acute abdomen (Primary Dx) Social History Tobacco Use Types Packs/Day Years [...] st Contact Info) Description 01/24/2025 Procedure Pass [address] [address] 09/19/2025 7:30 AM EDT Appointment [address] [address] Kev Pacheco, DO [address] [facility] [place] [address] documented as of this encounter Results * CT ABDOMEN/PELVIS WITH CONTRAST (11/26/2022 9:37 AM EDT) Anatomical Region Laterality Modality Abdomen, Pelvis Computed Tomogra phy 11/26/2022 4:12 PM EDT Impressions 11/27/2022 6:51 AM EDT Impression: No abdominopelvic acute inflammation. Large colonic stool volume with findings of slow small bowel transit, suggesting constipation. Aortic valvular calcifications, which can be seen in the setting of aortic stenosis. Narrative 11/27/2022 6:[address] ABDOMEN/PELVIS WITH CONTRAST TECHNIQUE: Multidetector-row CT of the abdomen and pelvis was performed after administration of intravenous contrast using tailored dose modulation techniques. Images were reconstructed in the axial, coronal, and sagittal planes. COMPARISON: CT ABDOMEN/PELVIS WITH CONTRAST FINDINGS: Lower Chest: Aortic annular and valvular calcifications. Subsegmental atelectasis at the posterior lower lobes. Liver: No suspicious focal lesion. Biliary: No bile duct dilation. Noninflamed gallbladder. Spleen: No splenomegaly or suspicious focal lesion. Pancreas: No mass or main duct dilation. Adrenal Glands: No nodule. Kidneys/Ureters: No urolithiasis, hydronephrosis, or solid renal mass. Subcentimeter cortical hypodensities are too small to characterize but unchanged and likely cysts. Pelvic Organs/Bladder: Age-appropriate. Bowel: No abnormal wall thickening or distension. Noninflamed appendix. Formed stool throughout the colon with fecalization of distal small bowel contents. Peritoneum/Retroperitoneum: No free fluid, free air, or mass. Lymph Nodes: No abnormally enlarged lymph nodes. Vessels: No aortic aneurysm. Atherosclerotic changes. Bones/Soft Tissues: No destructive osseous lesion. Degenerative changes. Procedure Note Kev Perez MD - 11/27/2022 CT ABDOMEN/PELVIS WITH CONTRAST TECHNIQUE: Multidetector-row CT of the abdomen and pelvis was performedafter administration of intravenous contrast using tailored dosemodulation techniques. Images were reconstructed in the axial, coronal,and sagittal planes. COMPARISON: CT ABDOMEN/PELVIS WITH CONTRAST FINDINGS: Lower Chest: Aortic annular and valvular calcifications. Subsegmentalatelectasis at the posterior lower lobes. Liver: No suspicious focal lesion. Biliary: No bile duct dilation. Noninflamed gallbladder. Spleen: No splenomegaly or suspicious focal lesion. Pancreas: No mass or main duct dilation. Adrenal Glands: No nodule. Kidneys/Ureters: No urolithiasis, hydronephrosis, or solid renal mass.Subcentimeter cortical hypodensities are too small to characterize butunchanged and likely cysts. Pelvic Organs/Bladder: Age-appropriate. Bowel: No abnormal wall thickening or distension. Noninflamed appendix.Formed stool throughout the colon with fecalization of distal small bowelcontents. Peritoneum/Retroperitoneum: No free fluid, free air, or mass. Lymph Nodes: No abnormally enlarged lymph nodes. Vessels: No aortic aneurysm. Atherosclerotic changes. Bones/Soft Tissues: No destructive osseous lesion. Degenerative changes. IMPRESSION: Impression: No abdominopelvic acute inflammation. Large colonic stool volume with findings of slow small bowel transit,suggesting constipation. Aortic valvular calcifications, which can be seen in the setting of aorticstenosis. Norma FIGUEROA IMG CT ABD/PELVIS Final Res ult documented in this encounter Visit Diagnoses Diagnosis Acute abdomen- Primary Abdominal pain, unspecified site Acute abdomen Abdominal pain, unspecified site documented in this encounter Additional Health Concerns Infection Onset Date Last Indicated Resolved Time C. diff 11/17/2022 11/17/2022 12/17/2022 1:21 AM EDT CoV-Risk 07/11/2023 07/11/2023 07/11/2023 1:35 PM EST COVID-19 07/11/2023 07/11/2023 08/01/2023 1:21 AM EDT documented as of this encounter Care Teams Mail Manager Relationship Specialty Start Date End Date Kev Pacheco DO PCP - General 02/22/17 Kev Pacheco DO Historical LMR Provider 02/27/17 Sarah [facility] [place] [address] Historical LMR Provider 02/27/17 Kev Pacheco DO [address] [place] [address] [email or web address] Insurance Assigned Provider 08/14/23 documented as of this encounter Additional Source Comments The information contained in this document represents components of the legal health record. It is not the complete legal health record.[facility]
--- OUTSIDE RECORDS SUMMARY | 2025-01-26 10:18 | XMS_ITS | Encounter Summary ---
Author Organization [facility] Address [address] [place] [address] Phone Care Team Providers Care Industrial Maintenance Manager Name Role Phone EdwinKev blanco Primary Care Provider [phone] Junior, Kev Junior DO Unavailable Sarah Law MD Unavailable [phone]- [phone] Kev Pacheco DO Unavailable Encounter Details Date Type Department Care Team (Late st Contact Info) Description 10/28/2023 Procedure Pass [facility], [address] [address] Social History Tobacco Use Types Packs/Day Years [...] st Contact Info) Description 01/24/2025 Procedure Pass [address] [address] 09/19/2025 7:30 AM EDT Appointment [address] [address] Kev Pacheco DO [address] [place] [address] documented as of this encounter Visit Diagnoses Not on filedocumented in this encounter Care Teams Industrial Maintenance Manager Relationship Specialty Start Date End Date Kev Pacheco DO [email or web address] PCP - General 02/22/17 Kev Pacheco DO [email or web address] Historical LMR Provider 02/27/17 Sarah Law MD [address] [place] [address] Historical LMR Provider 02/27/17 Kev Pacheco DO [address] [place] [address] [email or web address] Insurance Assigned Provider 08/14/23 documented as of this encounter Additional Source Comments The information contained in this document represents components of the legal health record. It is not the complete legal health record.[facility]
--- OUTSIDE RECORDS SUMMARY | 2025-01-26 10:18 | XMS_ITS | Encounter Summary ---
Author Organization [facility] Address [address] [place] [address] Phone Care Team Providers Care Meteorological Technician Name Role Phone Kev Pacheco Primary Care Provider [phone] Bigfrancis, Kev Junior DO Unavailable Sarah Law MD Unavailable [phone]- [phone] Junior, Kev Junior DO Unavailable Encounter Details Date Type Department Care Team (Late st Contact Info) Description 07/29/2022 Procedure Pass [facility], Ct Scan - [address] [address] Social History Tobacco Use Types Packs/Day Years Used Date Smoking Tobacco: Never Smokeless Tobacco: Never Intimate Partner Violence Answer Date R ecorded [...] on file documented as of this encounter Functional Status * Calculated C-SSRS Risk Score (Lifetime/Recent) Answer Date of Assessment Author No Risk Indicated 07/29/2022 7:26 PM EDT Marjorie Hameed RN * [place] Suicide Severity Rating Scale (Screener/Recent Self-Report) Question Answer Date of Assessment Author 1. Wish to be (Past 1 Month) No 07/29/2022 7:26 PM EDT Marjorie Mukherjee, EZEQUIEL 2. Non-Specific Active Suicidal Thoughts (Past 1 Month) No 07/29/2022 7:26 PM EDT Marjorie Mukherjee RN 6. Suicidal Behavior (Lifetime) No 07/29/2022 7:26 PM EDT Marjorie Mukherjee RN documented as of this encounter Plan of Treatment Upcoming Encounters Date Type Department Care Team (Late st Contact Info) Description 01/24/2025 Procedure Pass [address] [address] 09/19/2025 7:30 AM EDT Appointment [address] [address] Kev Pacheco DO [address] [facility] [place] [address] [email or web address] documented as of this encounter Visit Diagnoses Not on filedocumented in this encounter Additional Health Concerns Infection Onset Date Last Indicated Resolved Time C. diff 09/05/2022 09/05/2022 10/05/2022 1:23 AM EDT C. diff 11/17/2022 11/17/2022 12/17/2022 1:21 AM EDT CoV-Risk 07/11/2023 07/11/2023 07/11/2023 1:35 PM EST COVID-19 07/11/2023 07/11/2023 08/01/2023 1:21 AM EDT documented as of this encounter Care Teams Meteorological Technician Relationship Specialty Start Date End Date Kev Pacheco DO [email or web address] PCP - General 02/22/17 Kev Pacheco DO [email or web address] Historical LMR Provider 02/27/17 Sarah Law MD [address] [place] [phone] Historical LMR Provider 02/27/17 Kev Pacheco DO [address] [place] [address] [email or web address] Insurance Assigned Provider 08/14/23 documented as of this encounter Additional Source Comments The information contained in this document represents components of the legal health record. It is not the complete legal health record.[facility]
--- OUTSIDE RECORDS SUMMARY | 2025-01-26 10:18 | XMS_ITS | Encounter Summary ---
Author Organization [facility] Address [address] [place] [address] Phone Care Team Providers Care Training Officer Name Role Phone EdwinKev blanco Primary Care Provider [phone] Junior, Kev Junior DO Unavailable Sarah Law MD Unavailable [phone]- [phone] Junior, Kev Junior DO Unavailable Encounter Details Date Type Department Care Team (Late st Contact Info) Description 11/18/2022 Procedure Pass [facility], Ct Scan - [address] [address] Social History Tobacco Use Types Packs/Day Years [...] st Contact Info) Description 01/24/2025 Procedure Pass [address] [address] 09/19/2025 7:30 AM EDT Appointment [address] [address] Kev Pacheco DO [address] [place] [address] documented as of this encounter Visit Diagnoses Not on filedocumented in this encounter Additional Health Concerns Infection Onset Date Last Indicated Resolved Time C. diff 11/17/2022 11/17/2022 12/17/2022 1:21 AM EDT CoV-Risk 07/11/2023 07/11/2023 07/11/2023 1:35 PM EST COVID-19 07/11/2023 07/11/2023 08/01/2023 1:21 AM EDT documented as of this encounter Care Teams Training Officer Relationship Specialty Start Date End Date Kev Pacheco DO PCP - General 02/22/17 Kev Pacheco DO Historical LMR Provider 02/27/17 Sarah Law MD [address] [place] [address] Historical LMR Provider 02/27/17 Kev Pacheco DO [address] [place] [address] [email or web address] Insurance Assigned Provider 08/14/23 documented as of this encounter Additional Source Comments The information contained in this document represents components of the legal health record. It is not the complete legal health record.[facility]
--- OUTSIDE RECORDS SUMMARY | 2025-01-26 10:18 | XMS_ITS | Encounter Summary ---
Author Organization [facility] Address [address] [place] [address] Phone Care Team Providers Care Ornamenter Hand Name Role Phone EdwinKev blanco Primary Care Provider [phone] Kev Pacheco DO Unavailable Sarah Law MD Unavailable + [phone] Kev Pacheco DO Unavailable Encounter Details Date Type Department Care Team (Late st Contact Info) Description 06/05/2022 Transcribe Orders Virtual Department [address] [place] [address] Kev Pacheco, DO [address] [facility] [place] [address] [email or web address] Breast screening (Primary Dx) Social History Tobacco Use Types [...] st Contact Info) Description 01/24/2025 Procedure Pass [address] [address] 09/19/2025 7:30 AM EDT Appointment [address] [place] [address] EdwinKev blanco Sandi, DO [address] [facility] [place] [address] [email or web address] documented as of this encounter Results * BI MAMMOGRAM SCREENING WITH TOMOSYNTHESIS WITH CAD (BILATERAL) (08/05/2022 9:59 AM EDT) Anatomical Region Laterality Modality Breast Left, Breast Right, Breast Bilateral Bila teral Mammography 08/05/2022 12:0 6 PM EDT Impressions 08/05/2022 2:04 PM EDT BILATERAL BREASTS: Benign, no evidence of malignancy. Recommend bilateral annual screening mammography in 12 months. Bi-RADS: BI-RADS CATEGORY: 2 - Benign finding. DENSITY: There are scattered fibroglandular densities. RIGHT RECOMMENDATION DUE DATE: 12 Months Recommendation: Right Mammography Screening LEFT RECOMMENDATION DUE DATE: 12 Months Recommendation: Left Mammography Screening Narrative 08/05/2022 2:04 PM EDT STUDY: Bilateral screening mammography with tomosynthesis and CAD TECHNIQUE: Bilateral full-field digital screening mammography is obtained and read in conjunction with computer-aided detection. Tomosynthesis as well as 2-D C view imaging were obtained. COMPARISON: Comparison made to multiple prior studies dating back to November 2014. BILATERAL BREASTS: No new masses, suspicious calcifications or other abnormalities are seen. No significant interval change. Procedure Note Elizabeth Ramos MD - 08/05/2022 STUDY: Bilateral screening mammography with tomosynthesis and CAD TECHNIQUE: Bilateral full-field digital screening mammography is obtainedand read in conjunction with computer-aided detection. Tomosynthesis aswell as 2-D C view imaging were obtained. COMPARISON: Comparison made to multiple prior studies dating back to November2014. BILATERAL BREASTS: No new masses, suspicious calcifications or otherabnormalities are seen. No significant interval change. IMPRESSION: BILATERAL BREASTS: Benign, no evidence of malignancy. Recommend bilateralannual screening mammography in 12 months. Bi-RADS: BI-RADS CATEGORY: 2 - Benign finding. DENSITY: There are scattered fibroglandular densities. RIGHT RECOMMENDATION DUE DATE: 12 Months Recommendation: Right Mammography Screening LEFT RECOMMENDATION DUE DATE: 12 Months Recommendation: Left Mammography Screening Kev Pacheco DO IMG MG EXAMS Final Result documented in this encounter Visit Diagnoses Diagnosis Breast screening- Primary Breast screening, unspecified Breast screening Breast screening, unspecified documented in this encounter Additional Health Concerns Infection Onset Date Last Indicated Resolved Time C. diff 09/05/2022 09/05/2022 10/05/2022 1:23 AM EDT C. diff 11/17/2022 11/17/2022 12/17/2022 1:21 AM EDT CoV-Risk 07/11/2023 07/11/2023 07/11/2023 1:35 PM EST COVID-19 07/11/2023 07/11/2023 08/01/2023 1:2 1 AM EDT documented as of this encounter Care Teams Ornamenter Hand Relationship Specialty Start Date End Date JuniorKev DO Sandi PCP - General 02/22/17 Kev Pacheco DO Historical LMR Provider 02/27/17 Sarah Law MD [address] [place] [address] Historical LMR Provider 02/27/17 Kev Pacheco DO [address] [place] [address] Insurance Assigned Provider 08/14/23 documented as of this encounter Additional Source Comments The information contained in this document represents components of the legal health record. It is not the complete legal health record.[facility]
--- OUTSIDE RECORDS SUMMARY | 2025-01-26 10:18 | XMS_ITS | Encounter Summary ---
Author Organization [facility] Address [address] [place] [address] Phone Care Team Providers Care Flexographic Printing Machinist Name Role Phone Edwinfrancis Kev Junior DO Primary Care Provider Kev Pacheco DO Unavailable Sarah Law MD Unavailable + [phone] Kev Pacheco DO Unavailable Encounter Details Date Type Department Care Team (Late st Contact Info) Description 01/24/2025 Transcribe Orders Virtual Department [address] [place] [address] Kev Pacheco, DO [address] [facility] [place] [address] [email or web address] Breast screening (Primary Dx) Social History Tobacco [...] st Contact Info) Description 01/24/2025 Procedure Pass [address] [address] 09/19/2025 7:30 AM EDT Appointment [address] [address] Kev Pacheco DO [address] [facility] [place] [address] Scheduled Orders Name Type Priority Associated Diagnoses Orde r Schedule Mammogram Screening (Bilateral) Imaging Routine Breast screening Expected: 02/23/2025, Expires: 01/24/2026 documented as of this encounter Visit Diagnoses Diagnosis Breast screening- Primary Breast screening, unspecified documented in this encounter Care Teams Flexographic Printing Machinist Relationship Specialty Start Date End Date Kev Pacheco DO [email or web address] PCP - General 02/22/17 Kev Pacheco DO [email or web address] Historical LMR Provider 02/27/17 Sarah Law MD [address] [place] [address] Historical LMR Provider 02/27/17 Kev Pacheco DO [address] [place] [address] [email or web address] Insurance Assigned Provider 08/14/23 documented as of this encounter Additional Source Comments The information contained in this document represents components of the legal health record. It is not the complete legal health record.[facility]
--- OUTSIDE RECORDS SUMMARY | 2025-01-26 10:18 | XMS_ITS | Encounter Summary ---
Author Organization [facility] Address [address] [place] [address] Phone Care Team Providers Care Instructional Resource Teacher Name Role Phone Edwinfrancis Kev Junior DO Primary Care Provider Kev Pacheco DO Unavailable Sarah Law MD Unavailable + [phone] Kev Pacheco DO Unavailable Encounter Details Date Type Department Care Team (Late st Contact Info) Description 10/28/2023 Transcribe Orders Virtual Department [address] [place] [address] Kev Pacheco, DO [address] [facility] [place] [address] [email or web address] Breast screening (Primary Dx) Social History Tobacco [...] st Contact Info) Description 01/24/2025 Procedure Pass [address] [address] 09/19/2025 7:30 AM EDT Appointment [address] [address] Kev Pacheco, DO [address] [facility] [place] [address] [email or web address] documented as of this encounter Results * BI MAMMOGRAM SCREENING WITH TOMOSYNTHESIS WITH CAD (BILATERAL) (02/09/2024 7:42 AM EDT) Anatomical Region Laterality Modality Breast Left, Breast Right, Breast Bilateral Bila teral Mammography 02/09/2024 8:37 AM EDT Impressions 02/09/2024 9:04 AM EDT No mammographic evidence of malignancy in either breast. Annual screening mammography is recommended. BI-RADS 2 BENIGN The patient will be notified of the results and recommendations. Narrative 02/09/2024 9:04 AM EDT BI MAMMOGRAM SCREENING WITH TOMOSYNTHESIS WITH CAD (BILATERAL) Additional patient information: Screening. COMPARISON: Comparison is made with relevant prior imaging. Breast composition: There are scattered areas of fibroglandular density. FINDINGS: No abnormal masses, suspicious calcifications, or other significant findings are identified mammographically in either breast. Stable diffuse bilateral lucent centered calcifications and secretory calcifications on the right with benign characteristics. Procedure Note Camacho Felipe MD - 02/09/2024 BI MAMMOGRAM SCREENING WITH TOMOSYNTHESIS WITH CAD (BILATERAL) Additional patient information: Screening. COMPARISON: Comparison is made with relevant prior imaging. Breast composition: There are scattered areas of fibroglandular density. FINDINGS: No abnormal masses, suspicious calcifications, or other significantfindings are identified mammographically in either breast. Stable diffusebilateral lucent centered calcifications and secretory calcifications onthe right with benign characteristics. IMPRESSION: No mammographic evidence of malignancy in either breast. Annual screening mammography is recommended. BI-RADS 2 BENIGN The patient will be notified of the results and recommendations. us Kev Pacheco DO IMG MG EXAMS Final Result documented in this encounter Visit Diagnoses Diagnosis Breast screening- Primary Breast screening, unspecified Breast screening Breast screening, unspecified documented in this encounter Care Teams Instructional Resource Teacher Relationship Specialty Start Date End Date Kev Pacheco DO PCP - General 02/22/17 Kev Pacheco DO Historical LMR Provider 02/27/17 Sarah Law MD [address] [place] [phone] Historical LMR Provider 02/27/17 Kev Pacheco DO [address] [place] [address] Insurance Assigned Provider 08/14/23 documented as of this encounter Additional Source Comments The information contained in this document represents components of the legal health record. It is not the complete legal health record.[facility]
--- OUTSIDE RECORDS SUMMARY | 2025-01-26 10:18 | XMS_ITS | Clinical Summary ---
Author Organization [facility] Address [address] [place] [address] Phone Care Team Providers Care Learning Coordinator Name Role Phone Kev Pacheco Primary Care Provider [phone] Bigda, Kev Sandi DO Unavailable Sarah Law MD Unavailable [phone] Bigda, Kev Sandi DO Unavailable Allergies Active Allergy Reactions Criticality Noted Date Comments Bee Pollen Anaphylaxis High Throat swelling Penicillin V Hives High Medications cholecalciferol (VITAMIN D3) 2,000 unit capsule Take 2,000 Units by mouth daily. as directed Orally Active EPINEPHrine 0.3 mg/0.3 mL auto-injector epinephrine 0.3 mg/0.3 mL injection, auto-injector Active fluocinolone acetonide (DERMOTIC) 0.01 % Drop fluocinolone acetonide oil 0.01 % ear drops Active lisinopril-hydr oCHLOROthiazide (PRINZIDE,ZESTO RETIC) 20-25 mg per tablet lisinopril 20 mg-hydrochloroth iazide 25 mg tablet Active estradioL (ESTRACE) 0.01 % (0.1 mg/gram) vaginal cream 1 g once a week. Active MULTIVITAMIN ORAL Take 1 tablet by mouth daily. Active CALCIUM-VITAMIN D3 ORAL Take 1 tablet by mouth daily. Active cyclobenzaprine (FLEXERIL) 10 MG tablet Take 1 tablet (10 mg total) by mouth 3 (three) times a day as needed (muscle). 15 tablet 2 Active Additional Information Patient not taking.Reported on 07/11/2023 naproxen (NAPROSYN) 500 MG tablet Take 1 tablet (500 mg total) by mouth 2 (two) times a day for 3 days. Then twice daily as needed for pain, inflammation 20 tablet 2 Active rosuvastatin (CRESTOR) 20 MG tablet Take 1 tablet by mouth daily. Active Bacillus coagulans-inuli n 1 billion-250 cell-mg Cap Take 250 mg by mouth daily. Active coenzyme Q10 200 mg capsule Take 200 mg by mouth daily. Active Active Problems Problem Noted Date Diagnosed Date Overweight 03/09/2020 Atrophic vaginitis 06/07/2018 Eczema 06/07/2018 Essential hypertension 07/09/2017 Family history of diabetes mellitus 07/09/2017 Impaired fasting glucose 07/09/2017 Osteoarthritis 07/09/2017 Osteopenia 07/09/2017 Encounters Date Type Department Care Team Description 01/24/2025 Transcribe Orders Virtual Department [address] [place] [address] Kev Pacheco, DO Breast screening (Primary Dx) from Last 3 Months Immunizations Immunization Administration Dates Next Due Influenza High-Dose Quadrivalent Preservative Fr ee IM 03/06/2022,02/14/2020 Family History Medical History Relation Comments Breast cancer Neg Hx Social History Tobacco Use Types Packs/Day Years [...] on file Sexual Orientation Not on file Last Filed Vital Signs Vital Sign Reading Time Taken Comments Blood Pressure 144/79 07/11/2023 12:51 PM EST Pulse 87 07/11/2023 12:51 PM EST Temperature 36.7 C (98.1 F) 07/11/2023 12:51 PM EST Respiratory Rate 20 07/11/2023 12:51 PM EST Oxygen Saturation 98% 07/11/2023 12:51 PM EST Inhaled Oxygen Concentration - - Weight 68 kg (150 lb) 07/11/2023 12:51 PM EST Height 162.6 cm (5' 4 ) 07/11/2023 12:51 PM EST Body Mass Index 25.75 07/11/2023 12:51 PM EST Plan of Treatment Upcoming Encounters Date Type Department Care Team (Late st Contact Info) Description 01/24/2025 Procedure Pass [address] [address] 09/19/2025 7:30 AM EDT Appointment [address] [address] Kev Pacheco, DO [address] [facility] [place] [address] Health Maintenance Due Date Last Done Comments DEPRESSION SCREENING 1962 HEPATITIS C SCREENING 1970 COLOGUARD 1997 COLONOSCOPY 1997 COLORECTAL CANCER SCREENING 1997 FIT TEST 1997 FOBT 1997 SIGMOIDOSCOPY 1997 VIRTUAL COLONOSCOPY 1997 CREATININE LEVEL 07/30/2023 07/29/2022, , 02/16/2020 POTASSIUM LEVEL 07/30/2023 07/29/2022, 07/09, 02/16/2020 BLOOD PRESSURE 01/11/2024 07/11/2023 INFLUENZA VACCINE (#1) 2024 , 03/06/2022, 03/06/2022, Additional history exists COVID-19 VACCINE (3 - 2024- season) 2025 08/19/2020, 07/29/2020 MAMMOGRAM 02/08/2026 02/09/2024, 07/09, 07/02/2021, Additional history exists RSV VACCINE (1 - 1-dose 75+ series) 07/24/2027 LIPID PANEL 04/26/2028 04/26/2023, 01/2020, 02/16/2020 Adult Td,Tdap Booster 02/21/2031 02/21/2021 ZOSTER VACCINES Completed 12/22/2018, 12/08, 10/12/2018, Additional history exists PNEUMOCOCCAL VACCINES (50+ years) Completed 05/15/2019, 03/02/2018 OSTEOPOROSIS SCREENING INITIAL (ONE-TIME) Completed 08/20/2021 SMOKING STATUS SCREENING (Once After 26 Yrs) Completed 02/09/2024 HEPATITIS A VACCINES Aged Out No long er eligible based on patient's age to complete this topic HIB VACCINES Aged Out No longer eligi ble based on patient's age to complete this topic MENINGOCOCCAL VACCINES (ACWY) Aged Out No longer eligible based on patient's age to complete this topic MENINGOCOCCAL VACCINES (B) Aged Out N o longer eligible based on patient's age to complete this topic Medical Devices Not on file Procedures Procedure Name Priority Date/Time Associated Diagnosis Comments BI MAMMOGRAM SCREENING WITH TOMOSYNTHESIS WITH CAD (BILATERAL) Routine 02/09/2024 7:42 AM EDT Breast screening BASIC METABOLIC PANEL STAT 07/29/2022 7:32 PM EDT BD DXA AXIAL (SPINE) WITH HIP Routine 08/20/2021 9:32 AM EDT Other specified disorders of bone density and structure, unspecified site Post-menopausal Osteopenia, unspecified location LIPID PANEL Routine 02/16/2020 8:29 AM EDT Routine general medical examination at a health care facility from Last 3 Months or Most Recently Relevant to Health Maintenance Results * BI MAMMOGRAM SCREENING WITH TOMOSYNTHESIS [...] of the results and recommendations. us Kev A Bigda DO IMG MG EXAMS Final Result * (ABNORMAL) Basic metabolic panel (07/29/2022 7:32 PM EDT) SODIUM 139 133 - 146 mmol/L [facility] CHLORIDE 99 96 - 108 mmol/L [facility] POTASSIUM 3.0(L) 3.3 - 5.1 mmol/L [facility] CO2 30 21 - 35 mmol/L [facility] BUN 7 6 - 19 mg/dL [facility] CREATININE 0.70 0.5 - 1.5 mg/dL [facility] GLUCOSE 126(H) 70 - 99 mg/dL [facility] CALCIUM 9.6 8.4 - 10.3 mg/dL [facility] EGFR 93 >59 mL/min/1.7 3m2 [facility] Comment:Estimated glomerular filtration rate calculated using the CKD-EPI refit equation. ANION GAP 13 10 - 20 mmol/L [facility] Blood 07/29/2022 7:32 PM EDT 07/29/2022 7:34 PM EDT us Adriane Cam MD LAB BLOOD ORDERABLES Final R esult Performing Organization Address City/State/[facility] Co de Phone Number [address] [address] * BD DXA AXIAL (SPINE) WITH HIP (08/20/2021 9:32 AM EDT) Anatomical Region Laterality Modality Bone Density Bone Density 08/20/2021 10:1 4 AM EDT Impressions 08/20/2021 10:15 AM EDT 1.Interval bilateral total hip osteopenia. 2.Bilateral femoral neck osteopenia and normal lumbar spine bone density. Narrative 08/20/2021 10:15 AM EDT COMPARISON: 02/25/2017. BONE DENSITY FINDINGS: History: This is a 71-year-old postmenopausal female. Evaluation of the lumbar spine and hips was performed and felt to be technically adequate. L1-L4 vertebral bodies total bone mineral density was calculated at 0.947 gm/cm2 with a T-score of -0.9 falling within the WHO classification of normal-unchanged. Z-score of 1.1. 4.1% decrease in bone density which is statistically significant. Right femoral neck bone mineral density was calculated at 0.683 gm/cm2 with a T- score of -1.5 falling within the WHO classification of osteopenia-unchanged. Z-score of 0.2. Total Right hip bone mineral density was calculated at 0.807 gm/cm2 with a T- score of -1.1 falling within the WHO classification of osteopenia-previously normal. Z-score of 0.3. 3.5% decrease in bone density which is statistically significant. Left femoral neck bone mineral density was calculated at 0.683 gm/cm2 with a T- score of -1.5 falling within the WHO classification of osteopenia-unchanged. Z-score of 0.2. Total Left hip bone mineral density was calculated at 0.799 gm/cm2 with a T- score of -1.2 falling within the WHO classification of osteopenia-previously normal. Z-score of 0.3. 3.7% decrease in bone density which is statistically significant. Procedure Note Davey Pool MD - 08/20/2021 COMPARISON: 02/25/2017. BONE DENSITY FINDINGS: History: This is a 71-year-old postmenopausal female. Evaluation of the lumbar spine and hips was performed and felt to betechnically adequate. L1-L4 vertebral bodies total bone mineral density was calculated at 0.947gm/cm2 with a T-score of -0.9 falling within the WHO classification ofnormal-unchanged. Z- score of 1.1. 4.1% decrease in bone density whichis statistically significant. Right femoral neck bone mineral density was calculated at 0.683 gm/ki1mclx a T- score of -1.5 falling within the WHO classification ofosteopenia-unchanged. Z-score of 0.2. Total Right hip bone mineral density was calculated at 0.807 gm/cm2 with aT- score of -1.1 falling within the WHO classification ofosteopenia-previously normal. Z- score of 0.3. 3.5% decrease in bonedensity which is statistically significant. Left femoral neck bone mineral density was calculated at 0.683 gm/cm2 witha T- score of -1.5 falling within the WHO classification ofosteopenia-unchanged. Z-score of 0.2. Total Left hip bone mineral density was calculated at 0.799 gm/cm2 with aT-score of -1.2 falling within the WHO classification ofosteopenia-previously normal. Z- score of 0.3. 3.7% decrease in bonedensity which is statistically significant. IMPRESSION: 1.Interval bilateral total hip osteopenia. 2.Bilateral femoral neck osteopenia and normal lumbar spine bonedensity. us Kev A Bigda DO IMG BD BONE DENSITY DEXA Final R esult * (ABNORMAL) Lipid panel (02/16/2020 8:29 AM EDT) HDL 73 mg/dL [facility] Comment: Interpretation <40 mg/dL: Low HDL cholesterol (major risk factor for CHD) Greater than or equal to 60 mg/dL: High HDL cholesterol ( negative risk factor for CHD) HDL - cholesterol is affected by a number of factors, e.g. smoking, excerise, hormones, sex and age. CHOLESTEROL 193 0 - 240 mg/dL [facility] TRIGLYCERIDES 75 30 - 160 mg/dL [facility] LDL 105 50 - 129 mg/dL [facility] Comment: LDL levels in terms of risk for coronary heart disease: <100 mg/dL: Optimal 100-129 mg/dL: Near or above optimal 130-159 mg/dL: Borderline high 160-189 mg/dL: High >190 mg/dL: Very High CARDIAC RISK RATIO 2.6(L) 3.3 - 4.4 [facility] Blood 02/16/2020 8:29 AM EDT 02/16/2020 8:32 AM EDT us Kev A Bigda DO LAB BLOOD ORDERABLES Final Resul t [facility] [address] [place] [address] from Last 3 Months or Most Recently Relevant to Health Maintenance Insurance [facility] Care Teams Learning Coordinator Relationship Specialty Start Date End Date JuniorKevDO PCP - General 02/22/17 Kev Pacheco DO Historical LMR Provider 02/27/17 Sarah Law MD [address] [place] [address] Historical LMR Provider 02/27/17 Kev Pacheco DO [address] [place] [address] [email or web address] Insurance Assigned Provider 08/14/23 Additional Source Comments The information contained in this document represents components of the legal health record. It is not the complete legal health record.[facility]
--- OUTSIDE RECORDS SUMMARY | 2025-01-26 10:18 | XMS_ITS | Encounter Summary ---
Author Organization [facility] Address [address] [place] [address] Phone Care Team Providers Care Checking Clerk Name Role Phone Kev Pacheco DO Primary Care Provider Kev Pacheco DO Unavailable Kim Adams POWER PLANT SUPERVISOR Unavailable [phone] Marika Bruce MD Unavailable [phone] Kunal Stewart MD Unavailable Vira Henry MD Unavailable Sarah Law MD Unavailable [phone] Yazmin Pitts POWER PLANT SUPERVISOR Unavailable Kev Pacheco DO Unavailable Encounter Details Date Type Department Care Team (Late st Contact Info) Description 03/04/2021 Transcribe Orders Virtual Department [address] [place] [address] Kev Pacheco DO [address] [facility] [place] [address] Other specified disorders of bone density and structure, unspecified site (Primary Dx); Post-menopausal; Osteopenia, unspecified location Social History Tobacco Use Types Packs/Day [...] st Contact Info) Description 01/24/2025 Procedure Pass [address] [address] 09/19/2025 7:30 AM EDT Appointment [address] [address] Kev Pacheco, DO [address] [facility] [place] [address] [place] [address] [email or web address] documented as of this encounter Results * BD DXA AXIAL (SPINE) WITH HIP [...] bone mineral density was calculated at 0.683 gm/mh9xdjv a T- score of -1.5 falling within [...] and normal lumbar spine bonedensity. us Kev Pacheco DO IMG BD BONE DENSITY DEXA Final R esult documented in this encounter Visit Diagnoses Diagnosis Other specified disorders of bone density and structure, unspecified site- Primary Post-menopausal Asymptomatic postmenopausal status (age-related) (natural) Osteopenia, unspecified location Other specified disorders of bone density and structure, unspecified site Post-menopausal Asymptomatic postmenopausal status (age-related) (natural) Osteopenia, unspecified location documented in this encounter Additional Health Concerns Infection Onset Date Last Indicated Resolved Time C. diff 09/05/2022 09/05/2022 10/05/2022 1:23 AM EDT C. diff 11/17/2022 11/17/2022 12/17/2022 1:21 AM EDT CoV-Risk 07/11/2023 07/11/2023 07/11/2023 1:35 PM EST COVID-19 07/11/2023 07/11/2023 08/01/2023 1:21 AM EDT documented as of this encounter Care Teams Checking Clerk Relationship Specialty Start Date End Date JuniorKevDO PCP - General 02/22/17 Kev Pacheco DO Historical LMR Provider 02/27/17 Kim Adams NP [address] [place] [address] [email or web address] Historical LMR Provider 02/27/17 2 Marika Bruce MD [address] [place] [address] Historical LMR Provider 02/27/17 2 Kunal Stewart MD [address] [address] [email or web address] Historical LMR Provider 02/27/17 05/17/21 Vira Henry MD [address] [place] [address] Historical LMR Provider 02/27/17 2 Sarah Law MD [address] [address] Historical LMR Provider 02/27/17 Yazmin Pitts NP [address] [place] [address] Historical LMR Provider 02/27/17 2 Kev Pacheco DO [address] [place] [address] [place] [address] [email or web address] Insurance Assigned Provider 08/14/23 documented as of this encounter Additional Source Comments The information contained in this document represents components of the legal health record. It is not the complete legal health record.[facility]
--- OUTSIDE RECORDS SUMMARY | 2025-01-26 10:18 | XMS_ITS | Encounter Summary ---
Author Organization [facility] Address [address] [place] [address] Phone Care Team Providers Care Cardboard Inserter Name Role Phone Edwinfrancis Kev Junior DO Primary Care Provider Kev Pacheco DO Unavailable Kim Adams SCHOOL OFFICE MANAGER Unavailable Marika Bruce MD Unavailable [phone] Kunal Stewart MD Unavailable Vira Henry MD Unavailable Sarah Law MD Unavailable [phone] Yazmin Pitts SCHOOL OFFICE MANAGER Unavailable Kev Pacheco DO Unavailable Encounter Details Date Type Department Care Team (Late st Contact Info) Description 04/16/[address] [address] Social History Tobacco Use Types Packs/Day Years [...] st Contact Info) Description 01/24/2025 Procedure Pass [address] [address] 09/19/2025 7:30 AM EDT Appointment [address] [address] Kev Pacheco, 179 [facility] [place] [address] [email or web address] documented as of this encounter Visit Diagnoses Not on filedocumented in this encounter Additional Health Concerns Infection Onset Date Last Indicated Resolved Time C. diff 09/05/2022 09/05/2022 10/05/2022 1:23 AM EDT C. diff 11/17/2022 11/17/2022 12/17/2022 1:21 AM EDT CoV-Risk 07/11/2023 07/11/2023 07/11/2023 1:35 PM EST COVID-19 07/11/2023 07/11/2023 08/01/2023 1:21 AM EDT documented as of this encounter Care Teams Cardboard Inserter Relationship Specialty Start Date End Date Kev Pacheco DO PCP - General 02/22/17 Kev Pacheco DO Historical LMR Provider 02/27/17 Kim Adams SCHOOL OFFICE MANAGER [address] [place] [address] [email or web address] Historical LMR Provider 02/27/17 2 Marika Bruce MD [address] [address] Historical LMR Provider 02/27/17 2 Kunal Stewart MD [address] [address] Historical LMR Provider 02/27/17 05/17/21 Vira Henry MD [address] [place] [phone] Historical LMR Provider 02/27/17 2 Sarah Law MD [address] [address] Historical LMR Provider 02/27/17 Yazmin Pitts NP [address] [place] [address] Historical LMR Provider 02/27/17 2 Kev Pacheco DO [address] [place] [address] [place] [address] [email or web address] Insurance Assigned Provider 08/14/23 documented as of this encounter Additional Source Comments The information contained in this document represents components of the legal health record. It is not the complete legal health record.[facility]
[2025-01-26 13:14] LABS: MANUAL DIFF FLAG NO
[2025-01-26 13:45] LABS: Hematocrit 38.2 % (37.0-47.0); Hemoglobin 12.5 g/dl (12.0-16.0); Imm Gran Abs Auto 0.01 X10*3/uL (0.00-0.03); Imm Gran Pct Auto 0.2 % (0.0-0.4); Lymphocytes Absolute Auto 1.6 X10*3/uL (1.2-4.9); Mean Corpuscular HGB Conc 32.7 g/dl (31.0-35.0); Mean Corpuscular Hemoglobin 32.5 pg (27.0-33.0); Mean Corpuscular Volume 99.2 fL (80.0-98.0); NRBC Abs Auto 0.000 X10*3/uL (0.0-0.012); NRBC Pct Auto 0.0 /100WBC (0.0-0.2); Platelet Count 217 X10*3/uL (160-400); Red Blood Count 3.85 X10*6/uL (4.20-5.50); White Blood Count 5.0 X10*3/uL (4.8-10.8)
[2025-01-26 14:06] LABS: Alanine Aminotransferase 21 U/L (0-31); Albumin Level 4.6 g/dL (3.5-5.0); Alkaline Phosphatase 91 U/L (39-117); Anion Gap 10 (12-20); Aspartate Amino Transferase 24 U/L (5-31); Blood Urea Nitrogen 25 mg/dL (9-16); Calcium 9.2 mg/dL (8.4-10.2); Carbon Dioxide 30 mmol/L (22-29); Chloride 103 mmol/L (96-108); Estimated Glomerular Filt Rate > 60; Potassium 4.1 mmol/L (3.3-5.1); Sodium 139 mmol/L (135-145); Total Protein 7.4 g/dL (6.5-8.0)
[2025-01-26 14:24] LABS: Vitamin B12 588 pg/mL (200-900)
== END 2025-01-26 09:41 | disposition home or self-care (01) ==
LOC: HO.MANLDS 09:40
PROVIDERS: Visit Provider Internal Medicine
DX: I10 Essential (primary) hypertension (principal); E53.8 Deficiency of other specified B group vitamins
CPT/HCPCS: 36415; 80053; 82306; 82607; 85025

== ENCOUNTER 2025-03-21 07:25 | Outpatient (REF) | payer BC, SELFPAY ==
--- OUTSIDE RECORDS SUMMARY | 2023-07-11 13:13 | XMS_ITS | Encounter Summary ---
Author Organization [facility] Address [address] [place] [address] Phone Care Team Providers Care Inspector Coated Fabrics Name Role Phone EdwinKev blanco Sandi ROMERO Primary Care Provider [phone] Kev Pacheco DO Unavailable Sarah Law MD Unavailable [phone] Encounter Details Date Type Department Care Team (Late st Contact Info) Description 07/11/2023 1:13 PM EST Hospital Encounter [facility] [address] [place] [address] [phone] Sheryl Gibson PA-C, MS [address] [place] [address] [email or web address] Social History Tobacco Use Types Packs/Day Years Used Date Smoking Tobacco: Never Smokeless Tobacco: Never Education Answer Date Recorded Are you interested in more education? Not on ivonne e 09/03/2022 Are you concerned about learning? Not on file 09/03/2022 No 09/03/2022 No 09/03/2022 Digital Access Answer Date Recorded No 10/03/2022 No 10/03/2022 Reliable internet access at home? Not on file 10/03/2022 Device with a working camera? Not on file Intimate Partner Violence Answer Date R ecorded Are you denied basic needs s uch as food, clothing, or medical care? No 07/29/2022 In the past 12 months have y ou been in a relationship with a person who hurts, threatens, or tries to control you? No 07/29/2022 Are you denied basic needs s uch as food, clothing, or medical care? No 07/29/2022 In the past 12 months have y ou been in a relationship with a person who hurts, threatens, or tries to control you? No 07/29/2022 Comments No Sex and Gender Information Value Date Recorded Sex Assigned at Not on file Legal Sex Female 9:59 PM EDT Gender Identity Not on file Sexual Orientation Not on file documented as of this encounter Plan of Treatment Not on file documented as of this encounter Procedures Procedure Name Priority Date/Time Associated Diagnosis Comments XR CHEST PA AND LATERAL 2 VIEWS Urgent/patient waiting 07/11/2023 1:20 PM EST Viral illness documented in this encounter Results * XR CHEST PA AND LATERAL 2 VIEWS (07/11/2023 1:20 PM EST) Anatomical Region Laterality Modality Chest Computed Radiogr aphy 07/11/2023 1:23 PM EST Impressions 07/11/2023 1:35 PM EST No acute abnormality. ATTESTATION: I, Melvin Paul as teaching physician, have reviewed the images for this case and if necessary edited the report originally created by Serena Mcdaniels. Narrative 07/11/2023 1:35 PM EST XR CHEST PA AND LATERAL 2 VIEWS Referring clinician's provided indication for this examination in Epic: Cough; intermittent cough and congestion for 1.5 weeks, upcoming aortic valve replacement surgery COMPARISON: XR ABDOMEN SERIES SUPINE WITH DECUBITIS/ERECT AND SINGLE VIEW .. FINDINGS: Devices/Tubes/Lines: None. Lungs: No focal consolidation or pulmonary edema. Pleura: No pleural effusion or pneumothorax. Heart/Mediastinum: Normal heart and mediastinum. Bones/Soft Tissues: Degenerative changes of the thoracic spine. Procedure Note Melvin Paul MD, PhD - 07/11/2023 XR CHEST PA AND LATERAL 2 VIEWS Referring clinician's provided indication for this examination in Epic:Cough; intermittent cough and congestion for 1.5 weeks, upcoming aorticvalve replacement surgery COMPARISON: XR ABDOMEN SERIES SUPINE WITH DECUBITIS/ERECT AND SINGLE VIEW.. FINDINGS: Devices/Tubes/Lines: None. Lungs: No focal consolidation or pulmonary edema. Pleura: No pleural effusion or pneumothorax. Heart/Mediastinum: Normal heart and mediastinum. Bones/Soft Tissues: Degenerative changes of the thoracic spine. IMPRESSION: No acute abnormality. ATTESTATION: I, Melvin Paul as teaching physician, have reviewed theimages for this case and if necessary edited the report originally createdby Serena Mcdaniels. Sheryl Gibson PA-C, MS IMG XR CHEST Fi nal Result documented in this encounter Visit Diagnoses Not on filedocumented in this encounter Additional Health Concerns Infection Onset Date Last Indicated Resolved Time CoV-Risk 07/11/2023 07/11/2023 07/11/2023 1:35 PM EST COVID-19 07/11/2023 07/11/2023 08/01/2023 1:21 AM EDT documented as of this encounter Care Teams Inspector Coated Fabrics Relationship Specialty Start Date End Date Kev Pacheco DO PCP - General 02/22/17 Kev Pacheco DO Historical LMR Provider 02/27/17 [facility] [place] [place] [facility] LMR Provider 02/27/17 documented as of this encounter Additional Source Comments The information contained in this document represents components of the legal health record. It is not the complete legal health record.[facility]
--- OUTSIDE RECORDS SUMMARY | 2025-03-21 07:27 | XMS_ITS | Encounter Summary ---
Author Organization [facility] Address [address] [place] [address] Phone Care Team Providers Care Payroll Representative Name Role Phone Edwinfrancis Kev Junior DO Primary Care Provider [phone] Kev Pacheco DO Unavailable Kim Adams CUSTOMER QUALITY SPECIALIST Unavailable Marika Bruce MD Unavailable [phone] Kunal Stewart MD Unavailable [phone] Vira Henry MD Unavailable Sarah Law MD Unavailable [phone] Yazmin Pitts CUSTOMER QUALITY SPECIALIST Unavailable Kev Pacheco DO Unavailable Encounter Details Date Type Department Care Team (Late st Contact Info) Description 01/16/2019 Ancillary Orders Virtual Department [address] [place] [address] Sarah Law MD [address] [place] [address] Breast screening Social History Tobacco [...] on file documented as of this encounter Results * [...] Calcifications bilaterally are stable. Procedure Note Naye Spenecr MD - 03/16/2019 Bilateral full-field digital screening [...] documented as of this encounter Care Teams Payroll Representative Relationship Specialty Start Date End Date Kev Pacheco DO PCP - General 02/22/17 Kev Pacheco DO Historical LMR Provider 02/27/17 Kim Adams NP [address] [place] [address] [email or web address] Historical LMR Provider 02/27/17 2 Marika Bruce MD [address] [place] [address] Historical LMR Provider 02/27/17 2 Kunal Stewart MD [address] [place] [address] [email or web address] Historical LMR Provider 02/27/17 05/17/21 Vira Henry MD [address] [place] [address] Historical LMR Provider 02/27/172 2 Sarah Law MD [address] [place] [phone] Historical LMR Provider 02/27/17 Yazmin Pitts NP [address] [place] [address] Historical LMR Provider 02/27/1705/17/2 2 Kev Pacheco DO [address] [place] [address] [email or web address] Insurance Assigned Provider 08/14/23 documented as of this encounter Additional Source Comments The information contained in this document represents components of the legal health record. It is not the complete legal health record.[facility]
--- OUTSIDE RECORDS SUMMARY | 2025-03-21 07:28 | XMS_ITS | Encounter Summary ---
Author Organization [facility] Address [address] [place] [address] Phone Care Team Providers Care Senior Game Advisor Name Role Phone Junior Kev Junior DO Primary Care Provider [phone] Kev Pacheco DO Unavailable Kim Adams SUPERVISOR ORDER TAKERS Unavailable Marika Bruce MD Unavailable [phone] Kunal Stewart MD Unavailable Vira Henry MD Unavailable Sarah Law MD Unavailable [phone] Yazmin Pitts SUPERVISOR ORDER TAKERS Unavailable Kev Pacheco DO Unavailable Encounter Details Date Type Department Care Team (Late st Contact Info) Description 04/16/2021 Procedure Pass [address] [address] Social History Tobacco Use Types Packs/Day Years Used Date Smoking Tobacco: Never Smokeless Tobacco: Never Comments No Sex and Gender Information Value Date Recorded Sex Assigned at Not on file Legal Sex Female 9:59 PM EDT Gender Identity Not on file Sexual Orientation Not on file documented as of this encounter Plan of Treatment Not on file documented as of this encounter Visit Diagnoses Not on filedocumented in this encounter Additional Health Concerns Infection Onset Date Last Indicated Resolved Time C. diff 09/05/2022 09/05/2022 10/05/2022 1:23 AM EDT C. diff 11/17/2022 11/17/2022 12/17/2022 1:21 AM EDT CoV-Risk 07/11/2023 07/11/2023 07/11/2023 1:35 PM EST COVID-19 07/11/2023 07/11/2023 08/01/2023 1:21 AM EDT documented as of this encounter Care Teams Senior Game Advisor Relationship Specialty Start Date End Date Kev Pacheco DO PCP - General 02/22/17 Kev Pacheco DO Historical LMR Provider 02/27/17 Kim Adams NP [address] [place] [address] [email or web address] Historical LMR Provider 02/27/17 2 Marika Bruce MD [address] [place] [address] Historical LMR Provider 02/27/17 2 Kunal Stewart MD [address] [place] [address] Historical LMR Provider 02/27/17 05/17/21 Vira Henry MD [address] [place] [phone] Historical LMR Provider 02/27/17 2 Sarah Law MD [address] [place] [address] Historical LMR Provider 02/27/17 Yazmin Pitts NP [address] [place] [address] Historical LMR Provider 02/27/17 2 Kev Pacheco DO [address] [place] [address] [email or web address] Insurance Assigned Provider 08/14/23 documented as of this encounter Additional Source Comments The information contained in this document represents components of the legal health record. It is not the complete legal health record.[facility]
--- OUTSIDE RECORDS SUMMARY | 2025-03-21 07:28 | XMS_ITS | Data Portability ---
Author Organization [facility], Telehealth Patient Home Address [address] [place] [address] Assessment Encounter Date Assessment Date Assessment LastModified by Organization Details LastModified Time 09/22/2023 09/22/2023 [id number] [place] [id number] (ROLFER) [facility] MODERATE MUST MEET 2 OUT OF [...] COVERED Not available 09/22/2023 11:00:21 10/22/2023 10/22/2023 [id number] [place] [address] (ROLFER) [facility] MODERATE MUST MEET 2 OUT OF [...] COVERED Not available 10/22/2023 14:07:16 03/08/2024 03/08/20[place] [id number] [place] [id number] (ROLFER) [facility] MODERATE MUST MEET 2 OUT OF [...] THAT IS COVERED Not available 03/08/2024 10:17:35 01/26/2025 01/26/2025 [id number] [place] [id number] (ROLFER) MDM MODERATE MUST MEET 2 OUT OF [...] EACH ELEMENT THAT IS COVERED Not available 01/26/2025 09:32:48 Plan of Treatment Reminders Order Date Submit Date Provider Last Modified By Organization Details Last Modified Time Details Appointments ANNUAL EXAM 2025 10:30A M DR ALTAMIRANO Not available Not available Not available Lab CMP, serum or plasma 2024 025 [facility], [address] [place] [address], [id number], 01/29/2025 11:49:22 CBC 2024 025 [facility], [address] [place] [address], [id number], 01/26/2025 09:37:54 vitamin D, 25-hydrox y, total, serum 2024 025 [facility], [address] [place] [address], [address], 01/26/2025 09:37:54 vitamin B12, serum 2024 025 [facility], [address] [place] [address], [address], 01/29/2025 11:49:22 HbA1c (hemoglob in A1c), blood 2024 025 [facility], [address] [place] [address], [address], 09/04/2024 13:56:13 CMP, serum or plasma 2024 025 [facility], [address] [place] [address], [address], 09/04/2024 13:56:13 CBC 2024 025 [facility], [address] [place] [address], [address], 09/04/2024 13:56:13 vitamin D, 25-hydrox y, total, serum 2024 025 [facility], [address] [place] [address], [address], 09/04/2024 13:56:13 lipid panel, blood 2024 025 [facility], [address] [place] [address], [address], 09/04/2024 13:56:13 HbA1c (hemoglob in A1c), blood 2023 024 [facility], [address] [place] [address], [address], 08/28/2024 16:08:36 CMP, serum or plasma 2023 [facility], [address] [place] [address], 289[address], 03/08/2024 10:20:28 CBC 2023 [facility], [address] [place] [address], [address], 03/08/2024 10:20:28 vitamin D, 25-hydrox y, total, serum 2023 [facility], [address] [place] [address], [address], 03/08/2024 10:20:28 Referral None recorded. Procedures None recorded. Surgeries None recorded. Imaging MAMMO, screening , digital, bilateral 2024 [facility], [address] [place] [address], [place], [address], 02/09/2025 08:28:53 Medication Orders fluocinol one acetonide oil 0.01 % ear drops 2023 024 [id number], [address] [place], [place], [id number], 03/08/2024 10:16:56 lisinopri l 10 mg tablet 2023 [facility], [facility], [place], [address], 03/27/2024 15:07:41 Patient TargetsNo targets recorded. Patient Instructions Encounter Date Encounter Id Patient Instructions Last Modified By Organization Details Last Modified Time 09/22/2023 [id number] high blood pressure: care instructions Not available 09/22/2023 10:53:18 learning about high blood pressure Not available 09/22/2023 10:53:18 10/22/2023 [id number] hypokalemia: car e instructions Not available 10/22/2023 14:09:00 01/26/2025 [id number] prediabetes: car e instructions Not available 01/26/2025 09:35:35 mammogram: about this test Not available 01/26/2025 09:34:33 high blood pressure: care instructions Not available 01/26/2025 09:34:33 learning about high blood pressure Not available 01/26/2025 09:34:33 Reason for Referral None Reported. Results Created Date Observation Date Name Description Value Unit Range Abnormal Flag Note LastModifiedBy Organization Detail LastModifiedTime 02/09/20 24 02/09/2024 MAMMO , scree evelio, digit al, bilat eral No observ ation record ed. [facility] - Callback Orders Only [address] [facility], [place], [address], 03/08/2024 10:08:49 Result Notes None recorded. Problems Name Problem SNOMED Code Status Onset Date Resolution Date Notes Provider Name and Address Organization Details Recorded Time Osteopen ia 631395874 Active 2017 Not Available [facility] 13:48:11 Family history of diabetes mellitus 371475563 Active 2017 Not Available [facility] 13:48:11 Impaired fasting glycemia 430269943 Active 2017 Not Available [facility] 13:48:11 History of hysterec ghulam 511517428 Active 2017 Not Available [facility] 13:48:11 [facility] hyperten ayanna 94755559 Active 2017 Not Available [facility] 13:48:11 Osteoart hritis 661089860 Active 2017 C spine Not Available [facility] 13:48:11 Eczema 08418950 Active 2018 Not Available [facility] 10/16/202 1 13:48:11 Atrophic vaginiti s 77901829 Active 2018 Not Available [facility] 1 13:48:11 COVID-19 145121398 Active 2020 Not Available [facility] 1 13:48:11 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 Kev Altamirano, DO [address] [place], [address], [facility] [place] 2 09:20:24 Diarrhea 03727315 Active 2021 Kev Altamirano, DO [address] [place] [address], [phone], [facility] [place] 2 11:13:50 Right flank pain 949160468 Active 2022 CAROLINA ONTIVEROS [address] [place] [address], [address], [facility] [place] 3 12:27:54 Food-bor ne gastroen teritis 858837458 Active 2022 Kev Altamirano, DO [address] [place] [address], [address], [facility] [place] 3 15:04:13 Clostrid ium difficil e colitis 591183939 Active 2022 Kev Altamirano, DO [address] [place] [address], [address], [facility] [place] 3 10:26:46 Abdomina l pain 28867902 Active 2022 CAROLINA ONTIVEROS [address] [place], [address], [facility] [place] 3 14:05:42 Fever with chills 718411885 Active 2022 CAROLINA ONTIVEROS [address] [place], [address], [facility] [place] 3 14:03:36 Pyrexia of unknown origin 9844299 Active 2022 CAROLINA ONTIVEROS [address] [place] [address], [address], [facility] [place] 3 14:08:52 Hypokale yasmine 89669667 Active 2022 CAROLINA ONTIVEROS [address] [place] [address], [address], [facility] [place] 3 13:23:51 Constipa tion 64759696 Active 2022 Kev Altamirano, DO [address] [place] [address], [address], [facility] [place] 3 22:51:00 Systolic murmur 44532753 Active 2022 Kev Altamirano, DO [address] [place] [address], [address], [facility] [place] 3 15:29:29 Critical stenosis of aortic valve 938325094 Active 2022 Kev Altamirano, DO [address] [place] [address], [address], [facility] [place] 3 14:23:02 Severe aortic valve stenosis 050388919 Completed 202310/22/2023 Kev Altamirano, DO [address] [place] [address], [address], [facility] [place] 4 14:07:51 Drug-ind uced hypokale yasmine 215263645 Active 2023 Kev Altamirano, DO [address] [place] [address], [address], [facility] [place] 4 21:25:01 Severe aortic valve stenosis 882123714 Active 2023 Kev Altamirano DO [address] [place] [address], [address], [facility] [place] 4 14:07:51 Cobalami n deficien cy 802128748 Active 2024 Kev Altamirano DO [address] [place] [address], [address], [facility] 5 09:36:34 Problem Notes None recorded. Procedures Surgical History Date Name Laterality Status Provider Name and Address Organization Details Recorded Time 09/18/19 16 colonoscopy completed Divya Velasco NP, S [address] [place], [address], [facility] 06/07/2018 14:08:52 total abdominal hysterectomy completed Divya Velasco NP, S [address] [place], [address], [facility] 06/07/2018 14:02:55 Imaging Results None recorded. Procedure Notes None recorded. Medical Equipment None Reported. Allergies Allergen ID Allergen Name Allergen Category Reaction Reaction Severity Criticality Documentation Date Start Date Code Code System Note Provider Name and Address Organization Details Recorded Time 155 penicilli n V Not available Not available Not available Not available 07/09/2017 7984 RxNorm Latanya Mckeon [facility] 8 15:27:35 156 bee pollen environme nt,medica tion Not available Not available Not available 07/09/2017 82438 7 RxNorm Latanya Mckeon [facility] 8 15:29:26 Medications Name Sig Start [...] orothiazide 12.5 mg tablet TAKE 2 TABLETS DAILY active Not Available Not Available No [...] 5 mg tablet TAKE 1 TABLET DAILY 2024 active Not Available Not Available Not Avai lable ciprofloxac in 500 mg tablet Take 1 [...] 25 mg tablet TAKE 1/2 TABLET DAILY 2024 active Not Available Not Available Not Avai lable lisinopril 20 mg-hydrochl orothiazide 25 mg tablet [...] Relief 50 mcg/actuati on nasal spray,suspe nsion Caret 1 spray every day by intranasa l route for 30 days. 08/12 completed Not Available Not Available Not Available Shingrix (PF) 50 mcg/0.5 mL intramuscul ar suspension, kit 02/10 completed Not Available Not Available Not Available Fluzone High-Dose 9639-0254 (PF) 180 mcg/0.5 mL intramuscul ar syringe 08/30 completed Not Available Not Available Not Available Fluad 2019-20 65yr up(PF)45 mcg(15 mcgx3)/0.5 mL intramuscul ar syringe 02/10 completed Not Available Not Available Not Available Flowflex COVID-19 Antigen Home Test kit 08/12 completed Not Available Not Available Not Available Vitals Date Recorded Body height Body mass index (BMI) Body weight Systolic And Diastolic Provider Name and Address Organization Details Last Updated DateTime 09/04/2024 161.29 cm 27.4 kg/m2 03650 g 130/68 mm[Hg] Sheryl Kiser [facility] 09/04/2024 13:26:24 Date Recorded Body height Body mass index (BMI) Body weight Heart rate Respiratory rate Oxygen saturation Oxygen saturation in Arterial blood by Pulse oximetry Body temperature Systolic And Diastolic Provider Name and Address Organization Details Last Updated DateTime 4 161.29 cm 25 kg/m2 64444.4 3 g 64 /min 16 /min 96 % 96 % 98.8 [degF] 162/90 mm[Hg] Jimmy Prater [facility] 4 10:30:20 Date Recorded Body height Body mass index (BMI) Body weight Heart rate Oxygen saturation Oxygen saturation in Arterial blood by Pulse oximetry Systolic And Diastolic Provider Name and Address Organization Details Last Updated DateTime 4 161.29 cm 26.9 kg/m2 87689.0 2 g 66 /min 99 % 99 % 158/84 mm[Hg] Oksana Moncada [facility] 4 13:43:31 Date Recorded Body height Body mass index (BMI) Body weight Systolic And Diastolic Provider Name and Address Organization Details Last Updated DateTime 01/26/2025 161.29 cm 27.4 kg/m2 51738 g 130/80 mm[Hg] Sheryl Kiser [facility] 01/26/2025 09:22:35 Date Recorded Body height Body mass index (BMI) Body weight Heart rate Oxygen saturation Oxygen saturation in Arterial blood by Pulse oximetry Systolic And Diastolic Provider Name and Address Organization Details Last Updated DateTime 4 161.29 cm 27.4 kg/m2 19909 g 88 /min 98 % 98 % 126/70 mm[Hg] Kev Altamirano DO [address] [place], [address] 4 10:06:10 Social History Question Answer Notes LastModified by Organizat ion Details LastModified Time Tobacco Smoking Status Never Smoker Not Available [facility] 03/12/2020 03:36:23 What Was The Date Of Your Most Recent Tobacco Screening? 09/04/2024 [email or web address] Information not available 09/04/2024 Sex: Unknown Functional Status Question Answer Note LastModified by Organization D etails LastModified Time Do you or have you ever used any other forms of tobacco or nicotine? No [email or web address] Information not available 04/26/2023 Mental Status None [...] quadrivalent, preservative 02/14/20 21 completed CAROLINA ONTIVEROS [address] [place] [address], [address], [facility] [place] 02/14/2021 13:41:40 Tdap 02/22/20 21 completed Kev Altamirano DO [address] [place] [address], [address], [facility] [place] 02/23/2021 08:52:18 COVID-19, mRNA, LNP-S, PF, 30 mcg/0.3 mL dose 08/20/19 21 completed Kev Altamirano DO [address] [place], [address], [facility] 03/04/2021 09:00:50 Influenza, split virus, quadrivalent, preservative 03/06/20 22 completed Kev Altamirano DO [address] [place] [address], [address], [facility] 03/09/2022 10:26:53 Influenza, split virus, quadrivalent, preservative 03/02/20 18 completed Mikki bay [facility] 08/30/2018 08:57:37 Pneumococcal conjugate PCV 13 03/02/20 18 completed Mikki bay [facility] 08/30/2018 08:57:37 zoster live 02/14/20 [facility] 08:57:37 zoster live 10/13/19 19 completed Kev Altamirano DO [address] [place] [address], [address], [facility] 10/13/2018 08:38:09 zoster live 12/23/19 19 [facility] 08:17:04 Influenza, split virus, quadrivalent, preservative 12/23/19 19 [facility] 08:17:14 pneumococcal polysaccharide PPV23 05/15/19 20 [facility] 08:17:36 COVID-19, mRNA, LNP-S, PF, 30 mcg/0.3 mL dose 07/30/19 21 completed Kev Altamirano DO [address] [place] [address], [address], [facility] 08/12/2020 10:17:22 Past Encounters Encounter ID Performer Location Encounter Start Date Encounter Closed Date Diagnosis/Indication Diagnosis SNOMED-CT Code Diagnosis ICD10 Code Diagnosis IMO Codes Diagnosis Note [id number] Kev Altamirano DO [facility] [address],[place] [address] 08/17/2017 08:46:38 08/17/2017 09:58:20 Adult health examination 498140520 Z00.00 Active or passive immunization 183168307 Z23 Eczema of external auditory canal 45027533 H60.549 [id number] Kev Altamirano [facility] [address] [facility] [address],[place] [address] 02/07/2018 09:50:57 02/07/2018 10:58:07 Essential hypertension 05604196 I10 stable has 6 month f/u in a couple weeks Pneumonia 603385931 J18. 9 mucinex-dm fluids rest f/u as needed [id number] Kev Altamirano [facility] [address] [facility] [address],[place] [address] 02/25/2018 08:48:14 02/25/2018 09:25:33 Essential hypertension 30122189 I10 will rechk in 6 mo Impaired f asting glycemia 456438750 R73.01 stable going to dca Pneumonia 134938524 J18. 9 resolved and is overall recup [id number] Kev Altamirano [facility] [address] [facility] [address] [address] 06/07/2018 15:25:48 06/07/2018 16:15:28 Spasm of back muscles 482673360 M62.830 Essential hypertension 59135271 I10 stable [id number] Kev Altamirano [facility] [address] [facility] [address] [address] 08/30/2018 08:50:29 08/30/2018 09:38:08 Adult health examination 314923146 Z00.00 doing great Active or passive immunization 944263827 Z23 needs shingles Screening for cardiovascular system disease 771751997 Z13.6 also given a systolic heart murmur, will ask to get an echo if not already done will check old chart Screening for osteoporosis 252317337 Z13.820 done last year Screening mammography 24 478468 Z12.31 done mar Kev Altamirano [facility] [address] [facility] [address],[place] [address] 02/10/2019 09:20:01 02/10/2019 12:33:39 Hypertensive disorder 90310539 I10 reviewed lab in detail all wnl cholest excellent Essential hypertension 02536618 I10 will rechk in 6 mo Impaired f asting glycemia 781090514 R73.01 stable going to [facility] in mar Kev Altamirano [facility] [address] [facility] [address],[place] [address] 09/15/2019 09:26:08 09/15/2019 10:42:51 Acute pharyngitis 863908407 J02.9 [id number] Kev Altamirano [facility] [address] [facility] [address],[place] [address] 02/05/2020 16:04:27 02/05/2020 17:04:58 Adult health examination 958966309 Z00.00 doing great [id number] Kev Altamirano [facility] [address] [facility] [address],[place] [address] 08/12/2020 10:09:26 08/12/2020 11:00:19 Impaired fasting glycemia 329196619 R73.01 will need to have this a1c done Essential hypertension 84181011 I10 will rechk in 6 mo [id number] Kev Altamirano [facility] [address] [facility] [address],[place] [address] 03/04/2021 08:52:06 03/04/2021 13:59:40 Active or passive immunization 915994381 Z23 needs shingles Adult [facility] th examination 782573833 Z00.00 doing great Postmenopa usal osteopenia 250435936 M85.80 [id number] Kev Altamirano [facility] [address] [facility] [address],[place] [address] 09/03/2021 09:02:03 09/03/2021 14:48:50 Essential hypertension 39525172 I10 will rechk in 6 mo Impaired f asting glycemia 533249078 R73.01 will need to have this a1c done next lab Eczema of external auditory canal 56525678 H60.549 we will refill Osteopenia 235292158 M85 .80 noted in hip we will have her followed with this ' [id number] Kev Jones Edwinfrancis, [facility] [address] [facility] [address] [facility] [place] [place] [facility] 12/30/2021 09:31:47 12/30/2021 11:39:49 Diarrhea 15475336 R19.7 after long discussion she will try scrambled eggs and clear liquids and occ immodium today only and see if she can prevent a return of the watery diarrhea note she has not been on abx recently and has not been around anyone with similar episodes [id number] Kev Jones Junior [facility] [address] [facility] [address] [facility] [place] [place] [facility] 03/09/2022 10:19:37 03/09/2022 11:37:12 Active or passive immunization 790782305 Z23 patient advised she is due for flu shot Adult [facility] examination 455796296 Z00.00 doing great Advance care planning 71 6692766 Z71.89 done [id number] Kev Karen Altamirano [facility] [address] [facility] [address] 7 08/12/2022 14:08:08 08/12/2022 15:15:54 Diarrhea 34227113 R19.7 after discussion it appears this very well may be a E Coli toxin gastroente ritis we will re culture and start cipro 500 bid and probiotics Food-borne gastroenteritis 602517148 A05.9 [id number] Kev Altamirano [facility] [address] [facility] [address] 7 09/02/2022 13:19:54 09/02/2022 16:20:03 Diarrhea 30586413 R19.7 did good with initial cipro tx but have now returned ?c diff, ?return of poss E coli? side effect of ciprowe will have her rechk all cultures [id number] Kev Altamirano [facility] [address] [facility] [address] [address] 11/16/2022 13:50:51 11/16/2022 15:32:36 Diarrhea 98108245 A07.8 agreed to gastro PCR panel and C diff Abdominal pain 09032441 R10.0 [address] set with STAT CT abdomen + pelvis Fever with chills 656319 006 R50.84 continue with APAP as directed Clostridiu m difficile colitis 862442958 A04.72 will set up with STAT CTrepeat C Diff culturelab work Pyrexia of unknown origin 2477075 R50.84 most likely related to possible colitis of either infectious or inflammato ry n[facility] if the C diff is still negative [id number] Kev Altamirano [facility] [address] [facility] [address] 02/03/2023 14:38:57 02/03/2023 15:53:32 Clostridium difficile colitis 171945964 A04.72 resolved with vanco Diarrhea 75090460 A07.8 resolved will Essential hypertension 46199803 I10 will rechk in 6 mo Constipation 89310836 K5 9.00 will hold the lactulose for now if after 2 days she has no bm she can takealso metamucil she will start as wellcont her water drinking Systolic murmur 47534597 R01.1 Impaired f asting glycemia 230296819 R73.01 will need to have this a1c done next lab [id number] Kev Altamirano [facility] [address] [facility],[place] [address] 04/26/2023 13:48:27 04/26/2023 14:55:12 Active or passive immunization 362514138 Z23 patient advised she is due for flu shot Adult [facility] th examination 411491410 Z00.01 will be seeing cardiac surg for TAVR has severe Essential hypertension 88967159 I10 will rechk in 6 mo Hypokalemia 35263890 E87 .6 stable Clostridiu m difficile colitis 534372791 A04.72 resolved with vanco Critical s tenosis of aortic valve 467266982 I35.0 setting up for TAVR [id number] Kev Altamirano [facility] [address] [facility],[place] [address] 06/09/2023 08:30:18 06/09/2023 16:41:48 Critical stenosis of aortic valve 315050127 I35.0 setting up for aortic valve replacemen t open surgeryshe will set up a follow up after she gets surg date Essential hypertension 79079241 I10 home bps have been stable no change in meds [id number] Kev Altamirano [facility] [address] [facility] [address],[place] [address] 09/08/2023 14:43:19 09/08/2023 15:47:27 Critical stenosis of aortic valve 752656558 I35.0 successful replacemen t followed by pleural effus and collapsed lungwill be followed by a cardiology Essential hypertension 28235839 I10 home bps have been stable no change in meds Depression screening 171 362915 Z13.31 she is post op and this is not appropriat e at this time [id number] Kev Altamirano [facility] [address] [facility] [address] [address] 09/22/2023 10:21:01 09/22/2023 11:13:37 Essential hypertension 79637552 I10 home bps have been stable no change in meds [id number] Kev Altamirano [facility] [address] [facility] [address] [address] 10/22/2023 13:35:15 10/22/2023 14:25:19 Essential hypertension 62018559 I10 home bps have been stable no change in meds Severe aor tic valve stenosis [id number] I35.0 repair successful well healed scarchest no longer sore or feeling heavy Hypokalemia 83032016 E87 .6 stable on kcl but will need to rechk now that she is off furosemide [id number] Kev Altamirano DO [facility] [address],[place] [address] 03/08/2024 09:49:25 03/08/2024 10:45:59 Impaired fasting glycemia 625830308 R73.01 will need to have this a1c done next lab Essential hypertension 49206746 I10 home bps have been stable no change in meds Eczema of external auditory canal 85290048 H60.549 we will refill [id number] Kev Altamirano [facility] [address] [facility] [address],[place] [address] 09/04/2024 13:18:37 09/04/2024 13:57:47 Active or passive immunization [id number] Z23 patient advised she is due for flu shot Adult heal th examination 114567676 Z00.00 will be seeing cardiac surg for TAVR has severe due for echo this week Essential hypertension 10614652 I10 home bps have been stable no change in meds Hypokalemia 00668571 E87 .6 stable on kcl but will need to rechk now that she is off furosemide Impaired f asting glycemia 728365079 R73.01 will need to have this a1c done next lab [id number] Kev Altamirano [facility] [address] [facility] [address],[place] [address] 01/26/2025 09:15:41 01/26/2025 15:24:51 Depression screening 178038779 Z13.31 she is post op and this is not appropriat e at this time Essential hypertension 43835754 I10 home bps have been stable no change in meds Screening mammography 24 796439 Z12.31 [id number] ordered Impaired f asting glycemia 959450799 R73.01 will need to have this a1c done next lab Cobalamin deficiency 190 319912 E53.8 41138 Health Concerns Section Related Observation LastModified by Organization Detai ls LastModified Time None Recorded Concern Status LastModified by Organization Details LastModified Time None Recorded Advance Directives Directive None Recorded Payers Insurance Date Sequence Insurance Name Policy Number Policy Mata Covered Member ID Mata Member ID Guarantor Name 01/26/2025 1 [place] [facility] [id number] Monie Lake [id number] Monie [place] Notes Date Note Type Note Provider Name and Address Organization Details Recorded Time 4 text/htm l Care Management - HypertensionReported by PatientHPIFor self care, patient reportsnot under emotional stress. For severity, patient reportssymptoms are improvinganddoes not interfere with daily activities. For associated symptoms, patient reportsno dizziness,no lightheadedness,no chest pain,no shortness of breath,no palpitations,no edema,no calf muscle cramps,no blurred vision,no confusion,no headaches, andno fatigue.ROS as noted in the HPI here for rechkand is doing okmetoprolol is being stopped due to bradycardia weaning downbp will be followedplaced on rosuvastatin 5feels better on lower metoprololno cp no sobnow taking extra lisnopril Kev Altamirano, DO [address] [place], [address], [facility], [place], [facility] 10/22/2023 14:35:45 4 text/htm l Care Management - HypertensionReported by PatientIFor self care, patient reportsnot under emotional stress. For severity, patient reportssymptoms are improvinganddoes not interfere with daily activities. For associated symptoms, patient reportsno dizziness,no lightheadedness,no chest pain,no shortness of breath,no palpitations,no edema,no calf muscle cramps,no blurred vision,no confusion,no headaches, andno fatigue. Care Management - DiabetesReported by PatientIFor self care, patient reportsseeing eye doctor yearly for dilated eye exam,checking feet regularly,normal range of home blood sugars (in the low 100s), andno side effects from medications. For associated symptoms, patient reportssymptoms are usually well controlled,no fatigue,no dizziness,no excessive sweating,no headaches,no confusion,no increased thirst,no increased appetite,no increased urination,no blurred vision,no numbness of feet, andno calluses on feet.ROS as noted in the HPI here for rechk and is doing well overallrelates injured herself with a leaf blower ended up with a black eyeeating and sleeping okexercising daily 30min active outsidesleep is goodno issue with bowels Kev Altamirano DO [address] [place], [address], [facility] [place], [facility] 03/08/2024 10:20:13 5 text/htm l Care Management - DiabetesReported by PatientHPIFor self care, patient reportsseeing eye doctor yearly for dilated eye exam,checking feet regularly,normal range of home blood sugars (in the low 100s), andno side effects from medications. For associated symptoms, patient reportssymptoms are usually well controlled,no fatigue,no dizziness,no excessive sweating,no headaches,no confusion,no increased thirst,no increased appetite,no increased urination,no blurred vision,no numbness of feet, andno calluses on feet. Care Management - HypertensionReported by PatientHPIFor self care, patient reportsnot under emotional stress. For severity, patient reportssymptoms are improvinganddoes not interfere with daily activities. For associated symptoms, patient reportsno dizziness,no lightheadedness,no chest pain,no shortness of breath,no palpitations,no edema,no calf muscle cramps,no blurred vision,no confusion,no headaches, andno fatigue. Annual WellnessReported by PatientSocial/Behavioral HistoryFor diet and nutrition, patient reportshealthy diet. For fracture risk, patient reportsno history of fractures,no recent explained fracture,no sudden unexplained fractures, andno previous musculoskeletal injuries. For physical activity, patient reportsexercises on a regular basis,recent increase in physical activity, andgood physical condition. For additional lifestyle factors, patient reportsno tobacco use,no alcohol intake, andstopped drinking alcohol.Mental Status:For depression risk, patient reportsnever feels sad, empty, or tearful,no loss of interest in activities,no significant changes in weight,no sleep disturbances or insomnia,no agitation,no loss of energy,no feelings of worthlessness or guilt,no thoughts of suicide,no history of depression, andno history of mood disorders.Functional AbilityFor hearing, patient reportsno loss of hearing. For vision, patient reportsno vision problems.ROS as noted in the HPI Kev Altamirano DO [address] [place] [address], [phone], [facility] [place], [facility] 09/04/2024 13:50:29 5 text/htm l ROS as noted in the HPI here for rechk and is feeling =okno cp nossobdenies any issues sleeps oksome stress at homeappetite ok Kev Altamirano DO [address] [place], [address], [facility] 01/26/2025 09:38:26 OBGyn Episode No OBEpisode recorded.
--- OUTSIDE RECORDS SUMMARY | 2025-03-21 07:28 | XMS_ITS | Encounter Summary ---
Author Organization [facility] Address [address] [facility] [address] [place] [address] Phone Care Team Providers Care Curriculum Supervisor Name Role Phone EdwinKev blanco Primary Care Provider [phone] Junior, Kev Junior DO Unavailable Sarah Law MD Unavailable [phone]- [phone] Junior, Kev Junior DO Unavailable Encounter Details Date Type Department Care Team (Late st Contact Info) Description 11/18/2022 Procedure Pass [facility], Ct Scan - [address] [address] Social History Tobacco Use Types Packs/Day Years [...] documented as of this encounter Care Teams Curriculum Supervisor Relationship Specialty Start Date End Date Kev Pacheco DO PCP - General 02/22/17 Kev Pacheco DO Historical LMR Provider 02/27/17 Sarah Law MD [address] [place] [phone] Historical LMR Provider 02/27/17 Kev Pacheco DO [address] [place] [address] Insurance Assigned Provider 08/14/23 documented as of this encounter Additional Source Comments The information contained in this document represents components of the legal health record. It is not the complete legal health record.[facility]
--- OUTSIDE RECORDS SUMMARY | 2025-03-21 07:28 | XMS_ITS | Encounter Summary ---
Author Organization [facility] Address [address] [facility] [address] [place] [address] Phone Care Team Providers Care Chief Technology Officer Name Role Phone Edwinfrancis Kev Junior DO Primary Care Provider Kev Pacheco DO Unavailable Sarah Law MD Unavailable + [phone] Kev Pacheco DO Unavailable Encounter Details Date Type Department Care Team (Late st Contact Info) Description 10/28/2023 Transcribe Orders Virtual Department [address] [place] [address] Kev Pacheco, DO [address] [facility] [place] [address] [email or web address] Breast screening (Primary Dx) Social History Tobacco [...] of the results and recommendations. us Kev Junior Junior ROMERO IMG MG EXAMS Final Result documented in this encounter Visit Diagnoses Diagnosis Breast screening- Primary Breast screening, unspecified Breast screening Breast screening, unspecified documented in this encounter Care Teams Chief Technology Officer Relationship Specialty Start Date End Date Kev Pacheco DO PCP - General 02/22/17 Kev Pacheco DO Historical LMR Provider 02/27/17 Sarah Law MD [address] [place] [phone] Historical LMR Provider 02/27/17 Kev Pacheco DO [address] [place] [address] Insurance Assigned Provider 08/14/23 documented as of this encounter Additional Source Comments The information contained in this document represents components of the legal health record. It is not the complete legal health record.[facility]
--- OUTSIDE RECORDS SUMMARY | 2025-03-21 07:28 | XMS_ITS | Encounter Summary ---
Author Organization [facility] Address [address] [facility] [address] [place] [address] Phone Care Team Providers Care Safety Compliance Specialist Name Role Phone Kev Pacheco DO Primary Care Provider Kev Pacheco DO Unavailable Kim Adams CIGARETTE AND FILTER CHIEF INSPECTOR Unavailable [phone] Marika Bruce MD Unavailable [phone] Kunal Stewart MD Unavailable Vira Henry MD Unavailable Sarah Law MD Unavailable [phone] Yazmin Pitts CIGARETTE AND FILTER CHIEF INSPECTOR Unavailable Kev Pacheco DO Unavailable Encounter Details Date Type Department Care Team (Late st Contact Info) Description 03/04/2021 Transcribe Orders Virtual Department [address] [place] [address] Kev Pacheco DO [address] [place] [address] Other specified disorders of bone density and [...] bone mineral density was calculated at 0.683 gm/io3yggo a T- score of -1.5 falling within [...] documented as of this encounter Care Teams Safety Compliance Specialist Relationship Specialty Start Date End Date Kev Pacheco DO PCP - General 02/22/17 Kev Pacheco DO Historical LMR Provider 02/27/17 Kim Adams NP [address] [place] [address] [email or web address] Historical LMR Provider 02/27/17 2 Marika Bruce MD [address], [place] [address] Historical LMR Provider 02/27/17 2 Kunal Stewart MD [address] [place] [address] Historical LMR Provider 02/27/17 05/17/21 Vira Henry MD [address] [place] [phone] Historical LMR Provider 02/27/17 2 Sarah Law MD [address] [place] [address] Historical LMR Provider 02/27/17 Yazmin Pitts NP [address] [place] [address] Historical LMR Provider 02/27/17 2 Kev Pacheco DO [address] [place] [address] [email or web address] Insurance Assigned Provider 08/14/23 documented as of this encounter Additional Source Comments The information contained in this document represents components of the legal health record. It is not the complete legal health record.[facility]
--- OUTSIDE RECORDS SUMMARY | 2025-03-21 07:28 | XMS_ITS | Encounter Summary ---
Author Organization [facility] Address [address] [facility] [address] [place] [address] Phone Care Team Providers Care Specimen Technician Name Role Phone Edwinfrancis Kev Junior DO Primary Care Provider [phone] Kev Pacheco DO Unavailable Sarah Law MD Unavailable + [phone] Kev Pacheco DO Unavailable Encounter Details Date Type Department Care Team (Late st Contact Info) Description 06/05/2022 Transcribe Orders Virtual Department [address] [place] [address] Kev Pacheco, DO [address] [facility] [place] [address] [email or web address] Breast screening (Primary Dx) Social History Tobacco [...] DATE: 12 Months Recommendation: Left Mammography Screening us Kev A Bigda DO IMG MG EXAMS Final Result documented [...] documented as of this encounter Care Teams Specimen Technician Relationship Specialty Start Date End Date Kev Pacheco DO PCP - General 02/22/17 Kev Pacheco DO Historical LMR Provider 02/27/17 Sarah Law MD [address] [place] [phone] Historical LMR Provider 02/27/17 Kev Pacheco DO [address] [place] [address] Insurance Assigned Provider 08/14/23 documented as of this encounter Additional Source Comments The information contained in this document represents components of the legal health record. It is not the complete legal health record.[facility]
--- OUTSIDE RECORDS SUMMARY | 2025-03-21 07:28 | XMS_ITS | Encounter Summary ---
Author Organization [facility] Address [address] [facility] [address] [place] [address] Phone Care Team Providers Care Painter Interior Finish Name Role Phone Kev Pacheco Primary Care Provider Bigda, Kev Sandi DO Unavailable Sarah Law MD Unavailable + [phone] Bigfrancis, Kev Junior DO Unavailable Encounter Details Date Type Department Care Team (Late st Contact Info) Description 11/12/2022 Ancillary Orders Virtual Department [address] [place] [address] Norma Belle PA [address] [facility] [place] [address] [place] [address] Abdominal pain, unspecified abdominal location Social History [...] of bowel arepresent to suggest an obstruction. Norma FIGUEROA IMPankaj XR ABDOMEN Final Resul t documented in this encounter Visit Diagnoses Diagnosis Abdominal pain, unspecified abdominal location Abdominal pain, unspecified abdominal location documented in this encounter Additional Health Concerns Infection Onset Date Last Indicated Resolved Time C. diff 11/17/2022 11/17/2022 12/17/2022 1:2 1 AM EDT CoV-Risk 07/11/2023 07/11/2023 07/11/2023 1:35 PM EST COVID-19 07/11/2023 07/11/2023 08/01/2023 1:21 AM EDT documented as of this encounter Care Teams Painter Interior Finish Relationship Specialty Start Date End Date Kev Pacheco DO PCP - General 02/22/17 Kev Pacheco DO Historical LMR Provider 02/27/17 Sarah Law MD [address] [place] [address] Historical LMR Provider 02/27/17 Kev Pacheco DO [address] [place] [address] Insurance Assigned Provider 08/14/23 documented as of this encounter Additional Source Comments The information contained in this document represents components of the legal health record. It is not the complete legal health record.[facility]
--- OUTSIDE RECORDS SUMMARY | 2025-03-21 07:28 | XMS_ITS | Encounter Summary ---
Author Organization [facility] Address [address] [facility] [address] [place] [address] Phone Care Team Providers Care Roll Edge Machine Operator Name Role Phone Kev Pacheco DO Primary Care Provider Kev Pacheco DO Unavailable Kim Adams [facility]MH SPECIALIST Unavailable Marika Bruce MD Unavailable [phone] Kunal Stewart MD Unavailable [phone] Vira Henry MD Unavailable Sarah Law MD Unavailable [phone] Yazmin Pitts PCMH SPECIALIST Unavailable Kev Pacheco DO Unavailable Encounter Details Date Type Department Care Team (Late st Contact Info) Description 01/08/2020 Ancillary Orders Virtual Department [address] [place] [address] Kev Pacheco DO [address] [place] [address] Breast screening Social History Tobacco Use Types [...] Negative. DENSITY: There are scattered fibroglandular densities. us Kev A Bigda DO IMG MG [...] documented as of this encounter Care Teams Roll Edge Machine Operator Relationship Specialty Start Date End Date Kev Pacheco DO PCP - General 02/22/17 Kev Pacheco DO Historical LMR Provider 02/27/17 Kim Adams NP [address] [place] [address] [email or web address] Historical LMR Provider 02/27/17 2 Marika Bruce MD [address], [place] [address] Historical LMR Provider 02/27/17 2 Kunal Stewart MD [address] [place] [address] Historical LMR Provider 02/27/17 05/17/21 Vira Henry MD [address] [place] [phone] Historical LMR Provider 02/27/17 2 Sarah Law MD [address] [place] [address] Historical LMR Provider 02/27/17 Yazmin Pitts NP [address] [place] [address] Historical LMR Provider 02/27/17 2 Kev Pacheco DO [address] [place] [address] [email or web address] Insurance Assigned Provider 08/14/23 documented as of this encounter Additional Source Comments The information contained in this document represents components of the legal health record. It is not the complete legal health record.[facility]
--- OUTSIDE RECORDS SUMMARY | 2025-03-21 07:28 | XMS_ITS | Encounter Summary ---
Author Organization [facility] Address [address] [facility] [address] [place] [address] Phone Care Team Providers Care Steel Erector Name Role Phone EdwniKev blanco Primary Care Provider [phone] Bigda, Kev Junior DO Unavailable Sarah Law MD Unavailable [phone]- [phone] Bigfrancis, Kev Sandi DO Unavailable Encounter Details Date Type Department Care Team (Late st Contact Info) Description 06/05/2022 Procedure Pass [address] [address] Social History Tobacco Use Types Packs/Day Years [...] 07/11/2023 07/11/2023 1:35 PM EST COVID-19 07/11/2023 07/11/202307/3108/01/2023 1:21 AM EDT documented as of this encounter Care Teams Steel Erector Relationship Specialty Start Date End Date EdwinKev blanco PCP - General 02/22/17 Kev Pacheco DO Historical LMR Provider 02/27/17 Sarah Law MD [address] [place] [phone] Historical LMR Provider 02/27/17 Kev Pacheco DO [address] [place] [address] Insurance Assigned Provider 08/14/23 documented as of this encounter Additional Source Comments The information contained in this document represents components of the legal health record. It is not the complete legal health record.[facility]
--- OUTSIDE RECORDS SUMMARY | 2025-03-21 07:28 | XMS_ITS | Encounter Summary ---
Author Organization [facility] Address [address] [facility] [address] [place] [address] Phone Care Team Providers Care Knit Tubing Dyer Name Role Phone EdwinKev blanco Primary Care Provider [phone] Junior, Kev Junior DO Unavailable Sarah Law MD Unavailable +- [phone] Kev Pacheco DO Unavailable Encounter Details Date Type Department Care Team (Late st Contact Info) Description 10/28/2023 Procedure Pass [facility], [address] [address] Social History Tobacco Use Types Packs/Day Years [...] on filedocumented in this encounter Care Teams Knit Tubing Dyer Relationship Specialty Start Date End Date Kev Pacheco DO PCP - General 02/22/17 Kev Pacheco DO Historical LMR Provider 02/27/17 Sarah Law MD [address] [place] [phone] Historical LMR Provider 02/27/17 Kev Pacheco DO [address] [place] [address] Insurance Assigned Provider 08/14/23 documented as of this encounter Additional Source Comments The information contained in this document represents components of the legal health record. It is not the complete legal health record.[facility]
--- OUTSIDE RECORDS SUMMARY | 2025-03-21 07:28 | XMS_ITS | Clinical Summary ---
Author Organization [facility] Address [address] [place] [address] Phone Care Team Providers Care Catering Server Name Role Phone Kev Pacheco Primary Care Provider [phone] Bigda, Kev Sandi DO Unavailable Sarah Law MD Unavailable [phone] Bigda, Kev Sandi DO Unavailable Allergies Active [...] Description 01/24/2025 Transcribe Orders Virtual Department [address] [place] [address] Kev Pacheco, DO Breast screening (Primary Dx) [...] 07/11/2023 12:51 PM EST Plan of Treatment Health Maintenance Due Date Last Done Comments DEPRESSION SCREENING 1964 HEPATITIS C SCREENING 1970 COLOGUARD 1997 FIT TEST 1997 FOBT 1997 SIGMOIDOSCOPY 1997 VIRTUAL COLONOSCOPY 1997 CREATININE LEVEL 07/30/2023 07/29/2022, , 02/16/2020 POTASSIUM LEVEL 07/30/2023 07/29/2022, 07/09, 02/16/2020 BLOOD PRESSURE 01/11/2024 07/11/2023 INFLUENZA VACCINE (#1) 2024 , 03/06/2022, 03/06/2022, Additional history exists COVID-19 VACCINE ( season) 2025 08/19/2020, 07/29/2020 COLONOSCOPY 09/17/2025 10/28/2022 COLORECTAL CANCER SCREENING 09/17/2025 MAMMOGRAM 02/08/2026 02/09/2024, 07/09, 07/02/2021, Additional history [...] on patient's age to complete this topic IPV VACCINES Aged Out No longer eligi ble [...] Routine 02/09/2024 7:42 AM EDT Breast screening HM COLONOSCOPY FOR RESULT ENTRY ONLY Routine 10/28/2022 BASIC METABOLIC PANEL (BMP) STAT 07/29/2022 7:32 PM EDT BD DXA [...] DO IMG MG EXAMS Final Result * COLONOSCOPY FOR RESULT ENTRY ONLY (10/28/2022) Colonoscopy External [facility] Provider HEALTH MAINTENANCE Final Result * (ABNORMAL) Basic metabolic panel (07/29/2022 7:32 PM EDT) SODIUM 139 133 - 146 mmol/L [facility] CHLORIDE 99 96 - 108 mmol/L [facility] POTASSIUM 3.0(L) 3.3 - 5.1 mmol/L [facility] CO2 30 21 - 35 mmol/L [facility] BUN 7 6 - 19 mg/dL [facility] CREATININE 0.70 0.5 - 1.5 mg/dL [facility] GLUCOSE 126(H) 70 - 99 mg/dL [facility] CALCIUM 9.6 8.4 - 10.3 mg/dL [facility] EGFR 93 >59 mL/min/1.7 3m2 [facility] Comment:Estimated glomerular filtration rate calculated using the CKD-EPI refit equation. ANION GAP 13 10 - 20 mmol/L [facility] Blood 07/29/2022 7:32 PM EDT 07/29/2022 7:34 PM EDT us Adriane Cam MD LAB BLOOD BKR ORDERABLES Fin al Result Performing Organization Address City/State/[facility] Co de Phone Number [facility] [address] [place] [address] * BD DXA AXIAL (SPINE) WITH HIP [...] bone mineral density was calculated at 0.683 gm/bn0ucqn a T- score of -1.5 falling within [...] (02/16/2020 8:29 AM EDT) HDL 73 mg/dL [facility] Comment: Interpretation <40 mg/dL: Low HDL cholesterol (major risk factor for CHD) Greater than or equal to 60 mg/dL: High HDL cholesterol ( negative risk factor for CHD) HDL - cholesterol is affected by a number of factors, e.g. smoking, excerise, hormones, sex and age. CHOLESTEROL 193 0 - 240 mg/dL [facility] TRIGLYCERIDES 75 30 - 160 mg/dL [facility] LDL 105 50 - 129 mg/dL [facility] Comment: LDL levels in terms of risk for coronary heart disease: <100 mg/dL: Optimal 100-129 mg/dL: Near or above optimal 130-159 mg/dL: Borderline high 160-189 mg/dL: High >190 mg/dL: Very High CARDIAC RISK RATIO 2.6(L) 3.3 - 4.4 [facility] Blood 02/16/2020 8:29 AM EDT 02/16/2020 8:32 AM EDT us Kev Pacheco DO LAB BLOOD BKR ORDERABLES Final R esult [facility] [address] [place] [address] from Last 3 Months or Most Recently Relevant to Health Maintenance [facility] Member Subscriber Plan / Payer ( fective 2014-Present) Name:[place]ie [place] Relation to Subscriber:Self Name:MONIE [place]KE Payer ID:[id number] (NAIC) Type:HMO Address: [address] [place] [id number] Care Teams Catering Server Relationship Specialty Start Date End Date Kev Pacheco, PCP - General 02/22/17 EdwinKev [email or web address] Historical LMR Provider 02/27/17 Sarah Law MD [address] [place] [phone] Historical LMR Provider 02/27/17 Kev Pacheco DO [address] [place] [id number] [email or web address] Insurance Assigned Provider 08/14/23 Additional Source Comments The information contained in this document represents components of the legal health record. It is not the complete legal health record.[facility]
--- OUTSIDE RECORDS SUMMARY | 2025-03-21 07:28 | XMS_ITS | Encounter Summary ---
Author Organization [facility] Address [address] [place] [address] Phone Care Team Providers Care Edge Brusher Name Role Phone Junior Kev Junior DO Primary Care Provider [phone] Kev Pacheco DO Unavailable Kim Adams PUMP INSTALLATION AND SERVICER Unavailable Marika Bruce MD Unavailable [phone] Kunal Stewart MD Unavailable Vira Henry MD Unavailable Sarah Law MD Unavailable [phone] Yazmin Pitts PUMP INSTALLATION AND SERVICER Unavailable Kev Pacheco DO Unavailable Encounter Details Date Type Department Care Team (Late st Contact Info) Description 01/08/2020 Procedure Pass [address] [address] Social History Tobacco Use Types Packs/Day Years [...] documented as of this encounter Care Teams Edge Brusher Relationship Specialty Start Date End Date Kev Pacheco DO PCP - General 02/22/17 Kev Pacheco DO Historical LMR Provider 02/27/17 Kim Adams NP [address] [place] [id number] [email or web address] Historical LMR Provider 02/27/17 2 Marika Bruce MD [address] [address] Historical LMR Provider 02/27/17 2 Kunal Stewart MD [address] [place] [address] Historical LMR Provider 02/27/17 05/17/21 Vira Henry MD [address] [place] [phone] Historical LMR Provider 02/27/17 2 Sarha Law MD [address] [place] [address] Historical LMR Provider 02/27/17 Yazmin Pitts NP [address] [place] [address] Historical LMR Provider 02/27/17 2 Kev Pacheco DO [address] [place] [phone] [email or web address] Insurance Assigned Provider 08/14/23 documented as of this encounter Additional Source Comments The information contained in this document represents components of the legal health record. It is not the complete legal health record.[facility]
--- OUTSIDE RECORDS SUMMARY | 2025-03-21 07:28 | XMS_ITS | Encounter Summary ---
Author Organization [facility] Address [address] [place] [address] Phone Care Team Providers Care Soapstoner Name Role Phone EdwinKev blanco Primary Care Provider [phone] Junior, Kev Junior DO Unavailable Sarah Law MD Unavailable + [phone] Kev Pacheco DO Unavailable Reason for Referral * MRI/CAT Scan - Closed Specialty Diagnoses / Procedures Referred By Celso aragon Referred To Contact Radiology Diagnoses Acute abdomen Procedures CT Abdomen/Pelvis Norma Belle PA [address] [place] [address] [place] [address] Phone: tel: fax: Referral ID Status Reason Start Date Expiration Date Visits Re quested Visits Authorized [id number] Closed 11/18/2022 11/18/2023 1 1 Encounter Details Date Type Department Care Team (Latest Contact Info) Description 11/18/2022 Transcribe Orders Virtual Department [address] [place] [address] Norma Belle PA [address] [facility] [place] [address] Acute abdomen (Primary Dx) Social History Tobacco [...] in the setting of aorticstenosis. Norma FIGUEROA IMPankaj CT ABD/PELVIS Final Res ult documented in [...] documented as of this encounter Care Teams Soapstoner Relationship Specialty Start Date End Date Kev Pacheco DO PCP - General 02/22/17 Kev Pacheco DO Historical LMR Provider 02/27/17 Sarah Law MD [address] [place] [address] Historical LMR Provider 02/27/17 Kev Pacheco DO [address] [place] [phone] Insurance Assigned Provider 08/14/23 documented as of this encounter Additional Source Comments The information contained in this document represents components of the legal health record. It is not the complete legal health record.[facility]
--- OUTSIDE RECORDS SUMMARY | 2025-03-21 07:29 | XMS_ITS | Encounter Summary ---
Author Organization [facility] Address [address] [place] [address] Phone Care Team Providers Care Talent Sourcer Name Role Phone Kev Pacheco Primary Care Provider [phone] Bigfrancis, Kev Junior DO Unavailable Sarah Law MD Unavailable [phone] Junior, Kev Junior DO Unavailable Encounter Details Date Type Department Care Team (Late st Contact Info) Description 07/29/2022 Procedure Pass [facility], Ct Scan - [address] [address] Social History Tobacco Use Types Packs/Day Years [...] 7:26 PM EDT Marjorie Hameed RN * [place] Suicide Severity Rating Scale (Screener/Recent Self-Report) Question Answer Date of Assessment Author 1. Wish to be (Past 1 Month) No 07/29/2022 7:26 PM EDT Marjorie Mukherjee RN 2. Non-Specific Active Suicidal Thoughts (Past 1 [...] documented as of this encounter Care Teams Talent Sourcer Relationship Specialty Start Date End Date Kev Pacheco DO PCP - General 02/22/17 Kev Pacheco DO Historical LMR Provider 02/27/17 Sarah Law [facility] [place] [address] Historical LMR Provider 02/27/17 Kev Pacheco DO [address] [place] [address] [email or web address] Insurance Assigned Provider 08/14/23 documented as of this encounter Additional Source Comments The information contained in this document represents components of the legal health record. It is not the complete legal health record.[facility]
== END 2025-03-21 07:26 | disposition home or self-care (01) ==
LOC: HO.MAMMO 07:25
PROVIDERS: PCP Internal Medicine; Visit Provider Internal Medicine
DX: Z12.31 Encounter for screening mammogram for malignant neoplasm of breast (principal)
CPT/HCPCS: 77063; 77067

== ENCOUNTER → 2025-03-21 07:45 | Outpatient (BNV) | payer BC, SELFPAY | PROVIDERS: PCP Internal Medicine; Visit Provider Internal Medicine | DX: Z12.31 Encounter for screening mammogram for malignant neoplasm of breast (principal) | CPT/HCPCS: 77063; 77067 ==